=== PATIENT | male | born 1955 | race Caucasian/White ===

== ENCOUNTER 2019-09-11 17:31 | Outpatient (CLI) | payer MEDICARE, SELFPAY ==
--- NOTE | ~2019-09-11 | XR_ITS ---
EXAMINATION: XR chest 2V EXAM DATE: 09/11/2019 17:48 INDICATION: Cough since May. TECHNIQUE: Frontal and lateral projections of the chest obtained and reviewed. Comparison is made to prior examination from 06/30/2017. FINDINGS: The lungs are clear. There are no pleural effusions. The cardiomediastinal silhouette is within normal limits. There is no pneumothorax suspected. The bones and soft tissues are unremarkab le. IMPRESSION: No acute cardiopulmonary findings. Reviewed, dictated and finalized at location A.
== END 2019-09-11 17:32 | disposition home or self-care (01) ==
LOC: CHSIMG 17:36
PROVIDERS: PCP Internal Medicine; Visit Provider Internal Medicine
DX: R05 Cough (principal)
CPT/HCPCS: 71046

== ENCOUNTER 2020-09-02 16:34 | Outpatient (CLI) | payer MEDICARE, SELFPAY ==
--- NOTE | ~2020-09-02 | CT_ITS ---
EXAMINATION: CT abdomen pelvis w con DATE: 09/02/2020 17:52 INDICATION: Left lower quadrant abdominal pain. TECHNIQUE: Computed tomography (CT) of the abdomen and pelvis was performed with 100 mL Omnipaque-350 intravenous contrast. Automated exposure control and iterative reconstruction technique were employe d. The dose-length product was 985.33 mGy-cm. COMPARISON: 12/08/2007 FINDINGS: Minimal dependent atelectasis in the right lower lobe. Heart size is normal. Atherosclerotic coronary artery calcification. No pericardial or pleural effusion. Again seen are several small low-attenuati on hepatic lesions most likely representing hepatic cysts or hemangiomas, the largest measuring 12 mm in the right hepatic lobe. Gallbladder, pancreas, bilateral adrenal glands and kidneys are normal. 9 mm low-attenuation lesion at the periphery of the spleen most likely a splenic cyst or hemangioma. M ild diverticulosis with descending and sigmoid colon predominance without adjacent inflammatory aldrich e to suggest diverticulitis. Small bowel and appendix are normal. Bladder is normal. Mild prostatomeg juan. Small bilateral fat-containing inguinal hernias. No free intraperitoneal gas or fluid. No pathol ogically enlarged abdominal or pelvic lymphadenopathy. Mild lumbar levocurvature with moderate spondy losis. L4-S1 posterior spinal fusion with fixation instrumentation. IMPRESSION: 1. No acute intra-abdominal/pelvic process. 2. Mild diverticulosis. 3. Small bilateral fat-containing inguinal hernias. Reviewed, dictated and finalized at location A.
[2020-09-02 16:56] LABS: Basophils Absolute Auto 0.04 K/mm3 (0.00-0.10); Basophils Percent Auto 0.6 % (0.0-1.0); Eosinophils Percent Auto 1.5 % (1.0-6.0); Hematocrit 44.9 % (37.0-46.0); Immature Granulocyte Absolute 0.01 K/mm3 (0.00-0.00); Immature Granulocyte Percent A 0.1 % (0.0-0.0); Lymphocytes Absolute Auto 1.38 K/mm3 (1.10-4.50); Lymphocytes Percent Auto 20.4 % (18.0-42.0); Mean Corpuscular HGB Conc 33.4 g/dL (32.0-36.0); Mean Corpuscular Hemoglobin 31.8 pg (27.0-31.0); Mean Corpuscular Volume 95.3 fL (78.0-102.0); Mean Platelet Volume 9.2 fl (8.7-11.0); Monocytes Absolute Auto 0.21 K/mm3 (0.10-0.90); Monocytes Percent Auto 3.1 % (2.0-11.0); Neutrophils Percent Auto 74.3 % (50.0-70.0); Platelet Count Result 223 K/mm3 (150-420); Red Blood Count 4.71 M/mm3 (4.70-6.10); Red Cell Distribution Width 13.5 % (11.6-14.4); White Blood Count 6.8 K/mm3 (4.8-10.8)
[2020-09-02 17:00] LABS: Add Urine Microscopic? YES; Appearance Urine Clear (Clear); Bilirubin Urine 2+ (Negative); Blood Urine Negative (Negative); Color Urine Yellow (Yellow); Glucose Urine UA Negative (Negative); Ketones Urine 2+ (Negative); Leukocyte Esterase Ur Negative (Negative); Nitrate Urine Negative (Negative); Protein Urine 1+ (Negative); Specific Grav Ur >= 1.030 (1.010-1.020)
[2020-09-02 17:05] LABS: RBC Urine 0-2 /hpf (0-2); Squamous Epithelial Cell Urine Occasional /hpf (Few); WBC Urine 0-3 /hpf (0-3)
[2020-09-02 17:06] LABS: Bacteria Urine None seen /hpf
[2020-09-02 17:14] LABS: Alanine Aminotransferase 26 U/L (16-63); Albumin Level 4.1 g/dL (3.4-5.0); Alkaline Phosphatase 83 U/L (46-116); Anion Gap 9 mmol/L (8-16); Aspartate Amino Transferase 21 U/L (15-37); Bilirubin,Total 0.6 mg/dL (0.00-1.00); Blood Urea Nitrogen 16 mg/dL (7-18); Calcium 9.8 mg/dL (8.5-10.1); Carbon Dioxide 27 mmol/L (21-32); Chloride 103 mmol/L (98-108); Estimated Glomerular Filt Rate 55; Glucose 180 mg/dL (70-99); Osmolality Calculated 294 mOsm/kg (285-295); Potassium 3.9 mmol/L (3.5-5.1); Sodium 139 mmol/L (136-145); Total Protein 7.8 g/dL (6.4-8.2)
== END 2020-09-02 16:35 | disposition home or self-care (01) ==
LOC: CHSLAB 16:39
PROVIDERS: PCP Internal Medicine; Visit Provider Internal Medicine
DX: R10.32 Left lower quadrant pain (principal)
CPT/HCPCS: 36415; 74177; 80053; 81001; 85025; Q9967

== ENCOUNTER 2020-09-13 14:21 | Emergency (ER) | payer MEDICARE, SELFPAY ==
--- NOTE | ~2020-09-13 | CT_ITS ---
EXAMINATION: CT abdomen pelvis w con EXAM DATE: 09/13/2020 16:15 INDICATION: Diverticulitis LLQ pain increasing LLQ/ left groin pain into thigh, H/O diverticulitis. TECHNIQUE: Spiral CT of the abdomen and pelvis was performed following intravenous injection of 100 m L Omnipaque 350. Axial, coronal and sagittal images of the abdomen and pelvis were reviewed. The do se-length product (DLP) for this examination was 1294.83 mGy-cm. The exposure was tailored according to patient size (auto mA exposure control), and iterative reconstruction (ASIR) was used as addition al dose reduction technique. Comparison is made to prior examination from 09/02/2020. FINDINGS: Liver and subcentimeter hypodensities consistent with cysts. The liver, spleen, adrenal gl ands and pancreas are otherwise unremarkable. Gallbladder is unremarkable. No biliary obstruction. Portal and splenic veins are patent. Kidneys enhance symmetrically. There is no hydronephrosis. The prostate is unremarkable. The bladder is unremarkable. There is no retroperitoneal or pelvic ly mphadenopathy. There is mild to moderate scattered arteriosclerotic disease. Small bilateral inguin al fat-containing hernias. There is mild scattered colonic diverticulosis. There is no adjacent inflammatory change to suggest diverticulitis. The appendix is normal. The stomach and small bowel are unremarkable. There is expe cted amount of colonic stool. No free intraperitoneal gas. The heart is normal in size. There ar e no pericardial or pleural effusions. The lung bases are unremarkable. Mild lumbar levoscoliosis. Lumbosacral transitional segment. There is no significant interval change. IMPRESSION: 1. No acute intra-abdominal findings. 2. Mild scattered colonic diverticulosis. 3. Small inguinal hernias. Reviewed, dictated and finalized at location B.
--- NOTE | ~2020-09-13 | US_ITS ---
EXAMINATION: US venous doppler [facility] DATE: 09/13/2020 15:36 INDICATION: Left lower limb pain. TECHNIQUE: Grayscale ultrasound images without and with compression and Doppler ultrasound images of the left lower extremity veins were obtained. COMPARISON: None. FINDINGS: The visualized portions of left common femoral vein, profunda (deep) femoral vein, femoral vein, popl iteal vein, peroneal veins, posterior tibial veins, and greater saphenous vein outflow are patent. IMPRESSION: 1. No deep venous thrombosis. Reviewed, dictated and finalized at location A.
[2020-09-13 14:25] VITALS: BP 139/77; PULSE 88; RESP 16; TEMP 36.8; O2SAT 94
[2020-09-13] MEDS: KETOROLAC 30 MG/ML VIAL (*BKC) IM (15:18)
[2020-09-13 15:26] LABS: Basophils Absolute Auto 0.02 K/mm3 (0.00-0.10); Basophils Percent Auto 0.2 % (0.0-1.0); Eosinophils Absolute Auto 0.11 K/mm3 (0.02-0.50); Eosinophils Percent Auto 1.3 % (1.0-6.0); Hematocrit 45.9 % (37.0-46.0); Hemoglobin 15.1 g/dL (12.4-15.3); Immature Granulocyte Absolute 0.02 K/mm3 (0.00-0.00); Immature Granulocyte Percent A 0.2 % (0.0-0.0); Lymphocytes Absolute Auto 1.58 K/mm3 (1.10-4.50); Lymphocytes Percent Auto 18.4 % (18.0-42.0); Mean Corpuscular HGB Conc 32.9 g/dL (32.0-36.0); Mean Corpuscular Hemoglobin 31.7 pg (27.0-31.0); Mean Corpuscular Volume 96.4 fL (78.0-102.0); Mean Platelet Volume 9.8 fl (8.7-11.0); Monocytes Absolute Auto 0.27 K/mm3 (0.10-0.90); Monocytes Percent Auto 3.2 % (2.0-11.0); Neutrophils Absolute Auto 6.6 K/mm3 (1.7-7.2); Neutrophils Percent Auto 76.7 % (50.0-70.0); Platelet Count Result 238 K/mm3 (150-420); Red Blood Count 4.76 M/mm3 (4.70-6.10); Red Cell Distribution Width 14.1 % (11.6-14.4); White Blood Count 8.6 K/mm3 (4.8-10.8)
--- NOTE | 2020-09-13 15:33 | ED.ABDPAIN ---
HPI - Abdominal Pain General Chief Complaint: Abdominal Pain Stated Complaint: left side pain Groin/leg/Stomach Time Seen by Provider: 09/13/20 14:35 Source: patient Mode of arrival: ambulatory Limitations: no limitations History of Present Illness HPI narrative: Patient comes in with LLQ pain which he says has been ongoing for [address] Munoz a week ago or so, and was placed on medications for what was felt to be diverticulitis. He had been feeling somewhat better, but now has been having more pain today. Pain is moderately severe, sharp, and also associated with pain in his left thigh. It has been ongoing for at least a week, and has not been decreased by ibuprofen and measures at home. No other modifying factors. He denies fever and chills. Nothing is known to have precipitated this pain. He also has complained of not feeling well. MD elicited complaint: abdominal pain Pertinent past history: diverticulitis Onset (ago): week(s) Pain Consistency: constant Location: LLQ Severity: moderate Quality: stabbing Radiation: other (down to left leg) Exacerbating factors: movement Relieving factors: rest (rest helps a little to relieve pain) Associated symptoms: denies other symptoms Treatments prior to arrival: NSAIDs Related Data Home Medications Medication Instructions Recorded Confirmed amitriptyline 50 mg PO BID 09/13/20 09/13/20 celecoxib 200 mg PO BID 09/13/20 09/13/20 folic acid 1 mg PO DAILY 09/13/20 09/13/20 gabapentin 900 mg PO TID 09/13/20 09/13/20 insulin glargine [Basaglar KwikPen 70 unit SUBCUT DAILY 09/13/20 09/13/20 U-100 Insulin] lisinopril 10 mg PO DAILY 09/13/20 09/13/20 lovastatin 10 mg PO HS 09/13/20 09/13/20 metformin 500 mg PO DAILY 09/13/20 09/13/20 metoprolol tartrate 25 mg PO BID 09/13/20 09/13/20 tamsulosin 0.4 mg PO DAILY 09/13/20 09/13/20 Allergies Allergy/AdvReac Type Severity Reaction Status Date / Time lansoprazole Allergy Intermediate JOINT PAIN Verified 03/11/17 09:53 Review of Systems Constitutional: Constitutional: Reports fatigue Eyes: Eyes: Reports no additional eye complaints ENT: Reports system reviewed and no additional complaints, except as documented Cardiovascular: Cardiovascular: Reports no additional cardiovascular complaints Respiratory: Respiratory: Reports no additional respiratory complaints Gastrointestinal: Gastrointestinal: Reports no additional gastrointestinal complaints Genitourinary: Genitourinary: Reports no additional male genitourinary complaints Musculoskeletal: Musculoskeletal: Reports no additional musculoskeletal complaints Integumentary/Breasts: Skin/Breast: Reports system reviewed and no additional complaints, except as docu Neurologic: Reports system reviewed and no additional complaints, except as documented Psychiatric: Psychiatric: Reports no additional psychiatric complaints Endocrine: Endocrine: Reports no additional endocrine complaints Hematologic/Lymphatic: Hematologic/Lymphatic: Reports no additional hematologic/lymphatic complaints Allergic/Immunologic: Allergic/Immunologic: Reports no additional allergic/immunologic complaints [facility] Past Medical History Medical History CAD (coronary artery disease) Diabetes Diverticulitis Hairy cell leukemia HTN (hypertension) Hyperlipidemia Surgical History Surgical History (Updated 09/13/20 @ 16:50 by Jeff Aldana MD) H/O rotator cuff surgery Hx of elbow surgery Previous back surgery Family History Family History (Updated 09/14/20 @ 00:32 by Jeff Aldana MD) Mother CAD (coronary artery disease) Father DVT (deep venous thrombosis) Pulmonary embolism Social History Social History (Updated 09/14/20 @ 00:33 by Jeff Aldana MD) Smoking status: Former smoker Alcohol intake: never Substance use: never Exam Const: Orientation/consciousness: patient oriented x3 Other: appears uncomfortable with L
[2020-09-13 15:41] LABS: Alanine Aminotransferase 27 U/L (16-63); Albumin Level 3.8 g/dL (3.4-5.0); Alkaline Phosphatase 80 U/L (46-116); Anion Gap 9 mmol/L (8-16); Aspartate Amino Transferase 20 U/L (15-37); Bilirubin,Total 0.5 mg/dL (0.00-1.00); Blood Urea Nitrogen 15 mg/dL (7-18); Carbon Dioxide 25 mmol/L (21-32); Chloride 103 mmol/L (98-108); Estimated CRCL calculation 80 ml/min; Estimated Glomerular Filt Rate > 60; Glucose 168 mg/dL (70-99); Osmolality Calculated 288 mOsm/kg (285-295); Potassium 4.3 mmol/L (3.5-5.1); Sodium 137 mmol/L (136-145); Total Protein 7.4 g/dL (6.4-8.2)
[2020-09-13 16:41] VITALS: BP 129/80; PULSE 81; RESP 15; O2SAT 95
== END 2020-09-13 16:51 | disposition home or self-care (01) ==
PROVIDERS: Emergency Provider Emergency Medicine; PCP Internal Medicine
DX: K57.92 Diverticulitis of intestine, part unspecified, without perforation or abscess without bleeding (principal); M79.605 Pain in left leg
CPT/HCPCS: 36415; 74177; 80053; 83605; 85025; 87040; 93971; 96372; 99283; 99284; J1885; Q9967

== ENCOUNTER 2020-09-21 07:48 | Outpatient (CLI) | payer MEDICARE, SELFPAY ==
--- NOTE | ~2020-09-21 | MR_ITS ---
EXAMINATION: MR hip LT wo con DATE: 09/21/2020 09:38 INDICATION: Left hip pain. TECHNIQUE: Magnetic resonance imaging (MRI) of the left hip was performed without intravenous contras t. Sequences included axial and coronal PD-weighted FS FSE and axial T1-weighted FSE of the pelvis. S equences of the hip included 2D FIESTA, T1-weighted fast GRE, and axial, coronal, and sagittal PD-nehemiah ghted FS FSE. COMPARISON: CT abdomen and pelvis 09/13/2020 FINDINGS: Bones/cartilage: Bone alignment is normal. No fracture. The right hip joint demonstrates areas of full-thickness carti maximiliano loss and osteophytes. Small [id number] images of left hip demonstrate full-thickness cartilag e loss of the acetabulum superolaterally, partial thickness cartilage loss of the femoral head, and m arginal osteophytes. Labrum: There is a tear of the left acetabular labrum. Fluid: There is no hip joint effusion. There is mild bilateral trochanteric bursitis. Soft tissues: The prostate is mildly enlarged. There are bilateral inguinal hernias containing fat. The gluteus min imus and gluteus medius tendons are normal. The iliopsoas tendons are normal. There is moderate tendi nopathy of the hamstring origins bilaterally. IMPRESSION: 1. Severe chondrosis of the hip joints. 2. Bilateral inguinal hernias containing fat. Reviewed, dictated and finalized at location A.
== END 2020-09-21 07:49 | disposition home or self-care (01) ==
LOC: CHSIMG 07:50
PROVIDERS: PCP Internal Medicine; Visit Provider Internal Medicine
DX: M25.552 Pain in left hip (principal)
CPT/HCPCS: 73721

== ENCOUNTER 2020-12-23 09:52 | Outpatient (CLI) | payer MEDICARE, SELFPAY ==
--- NOTE | ~2020-12-23 | XR_ITS ---
EXAMINATION: XR knee LT min 4V DATE: 12/23/2020 10:58 INDICATION: Left knee pain. TECHNIQUE: 4 views of left knee were obtained. COMPARISON: None. FINDINGS: Bone alignment is normal. No fracture. There is mild tricompartmental osteoarthritis charac terized by tiny marginal osteophytes. There is a small knee joint effusion. IMPRESSION: 1. Mild left knee osteoarthritis. 2. Small left knee joint effusion. Reviewed, dictated and finalized at location B.
== END 2020-12-23 09:53 | disposition home or self-care (01) ==
LOC: CHSLAB 09:56
PROVIDERS: PCP Internal Medicine; Visit Provider Internal Medicine
DX: M25.562 Pain in left knee (principal)
CPT/HCPCS: 73564

== ENCOUNTER 2020-12-28 09:34 | Outpatient (CLI) | payer MEDICARE, SELFPAY ==
--- NOTE | ~2020-12-28 | MR_ITS ---
EXAMINATION: MR knee LT wo con DATE: 12/28/2020 11:37 INDICATION: Left knee pain. TECHNIQUE: Magnetic resonance imaging (MRI) of the left knee was performed without intravenous contra st. Sequences included axial PD-weighted FS FSE, coronal PD-weighted FSE and PD-weighted FS FSE, sagi ttal PD-weighted FSE, and sagittal T2-weighted FS FSE. COMPARISON: Left knee radiographs 12/23/2020 FINDINGS: Medial compartment: There is a complex tear involving posterior horn of medial meniscus. There is shallow partial-thickne ss cartilage loss of tibial condyle. There is shallow partial-thickness cartilage loss of femoral con dyle, worst at the central and posterior articular surface. There are tiny osteophytes. Lateral compartment: Lateral meniscus is normal. There is shallow partial-thickness cartilage loss of tibial condyle, wors t at the central and posterior articular surface. There is cartilage surface irregularity of femoral condyle. There are tiny marginal osteophytes. Patellofemoral compartment: There is full-thickness cartilage loss of patellar median ridge and lateral facet with moderate subch ondral edema-like marrow signal intensity. There is shallow partial-thickness cartilage loss of iverson lar medial facet. There is shallow partial-thickness cartilage loss of central trochlea. Marginal ost eophytes are noted. Ligaments and tendons: The anterior and posterior cruciate ligaments are normal. Medial collateral ligament and lateral nabil ateral ligament complex are normal. There is mild patellar tendinopathy. Fluid: There is a small knee joint effusion. IMPRESSION: 1. Severe patellofemoral compartment chondrosis and mild medial and lateral compartment chondrosis. 2. Complex tear of medial meniscus. 3. Small knee joint effusion. Reviewed, dictated and finalized at location A. IMPRESSION: 1. Severe patellofemoral compartment chondrosis and mild medial and lateral com partment chondrosis. 2. Complex tear of medial meniscus. 3. Small knee joint effusion.
== END 2020-12-28 09:35 | disposition home or self-care (01) ==
LOC: CHSIMG 09:36
PROVIDERS: PCP Internal Medicine; Visit Provider Internal Medicine
DX: M25.562 Pain in left knee (principal)
CPT/HCPCS: 73721

== ENCOUNTER 2021-03-18 13:32 | Outpatient (RCR) | payer MEDICARE, SELFPAY ==
--- NOTE | 2021-03-18 13:56 | PTOPEVAL ---
Thank you for referring Lavell Santoro to [facility].? The patient is scheduled to be seen for therapy? ____x/week for ___ weeks. Please review, sign, date and return this plan of care BO. I agree with and certify that the following plan of care is medically necessary. Referring Physician Date Admitting Provider: Attending Provider: Nelson Munoz MD Referring Provider: *PT Outpatient Evaluation Start: 03/18/21 13:24 Freq: Status: Active Protocol: Document 03/18/21 13:25 [facility] (Rec: 03/18/21 13:55 [facility] [id number]) Therapy Assessment Status Assessment Status Assessment Status Evaluation Outpatient Past Medical History Cardiovascular History Hx Hypertension Yes Endocrine History Hx Diabetes Yes Evaluation Information Problem Diagnosis L knee pain Onset 10/18/20 Subjective Information patient reports he has been Query Text:As Reported By Patient/ having pain in the L knee for Family months. he reports 4-5 months he has really noticed pain. he reports he has had xray and mri of the L knee. results show patellar chondrosis, knee OA, and a complex tear of the meniscus. he reports he has been doing some stretching exercises at home. he reports he has increased pain in the L knee with going down steps ( catches and pops). he reports he had injections to the bilateral knees yesterday ( patient believes they were botox). he reports initially when pain came about his L knee gave out on hims and he banged his knee against the sink. Prior Level of Function Comments Additional Prior Level of Function patient reports prior to 4-5 Comments months ago he was getting around ok without knee pain. Pain Assessment Timing of Pain Assessment Timing of Pain Assessment Assessment Pain Scale Pain Scale Used Numeric (1 - 10) Self Report Pain Assessment Left Knee(s) Reported Pain Level 3 Pain Frequency Acute,Continuous Greatest Pain Intensity 8 Pain Score Pain Score 3: Self Report Interventions Used Interventions Used By Clinicians Medication,Rest Lower Extremity Range of Motion General Lower Extremity Range
== END 2021-04-08 23:59 | disposition home or self-care (01) ==
LOC: CHSPT 13:32
PROVIDERS: PCP Internal Medicine; Visit Provider Internal Medicine
DX: M25.562 Pain in left knee (principal)
CPT/HCPCS: 97014; 97110; 97161; G0283

== ENCOUNTER 2021-04-29 09:45 | Outpatient (CLI) | payer MEDICARE, SELFPAY ==
[2021-04-29 11:49] LABS: Influenza A QL RT-PCR Negative (Negative); Influenza B QL RT-PCR Negative (Negative); SARS-CoV-2 RNA PCR Negative (Negative)
== END 2021-04-29 09:46 | disposition home or self-care (01) ==
PROVIDERS: PCP Internal Medicine; Visit Provider Internal Medicine
DX: J06.9 Acute upper respiratory infection, unspecified (principal); Z20.822 Contact with and (suspected) exposure to COVID-19
CPT/HCPCS: 87502; C9803; U0003; U0005

== ENCOUNTER 2022-05-04 15:43 | Emergency (ER) | payer MEDICARE, SELFPAY ==
[2022-05-04] VITALS (7 sets, daily range): BP systolic 134–144; BP diastolic 72–80; PULSE 79–90; RESP 16–20; TEMP 36.2–36.5; O2SAT 93–100
--- NOTE | ~2022-05-04 | XR_ITS ---
EXAMINATION: XR chest 1V portable Exam Date/Time: 05/04/2022 16:30 JOURNALISTS AND OTHER WRITERS HISTORY: productive cough, body aches, sore throat x 7 days hx cad Comparison: 09/11/2019. RESULT: Lines, tubes, and devices: None. Lungs and pleura: Increased diffuse reticulonodular opacities and cuffing. Cardiomediastinal silhouette: Stable. Other: No acute osseous or upper abdominal finding. IMPRESSION: Pulmonary opacities may represent bronchiolitis, as can be seen with atypical infection, asthma, aspi ration, and small airways disease. Reviewed, dictated and finalized at location K. NALISTS AND OTHER WRITERS IMPRESSION: Pulmonary opacities may represent bronchiolitis, as can be seen with atypical i nfection, asthma, aspiration, and small airways disease.
--- NOTE | ~2022-05-04 | CT_ITS ---
EXAMINATION: CTA chest PE protocol DATE: 05/04/2022 17:31 INDICATION: soB, elevated ddimer, cough, hx cad,htn, former smoker TECHNIQUE: Computed tomography angiography (CTA) of the chest was performed with 100 mL Omnipaque-350 intravenous contrast timed to evaluate the pulmonary arteries. Coronal maximum intensity projection 3D-reconstructions were created by the technologist. The dose-length product (DLP) was 832.58 mGy-cm. Automated exposure control and iterative reconstruction technique were employed. COMPARISON: X-ray chest, same date. FINDINGS: Lung parenchyma and airways: Senescent change. Scattered mild peripheral reticular and reticulonodula r opacities, most evident in the dependent right lower lobe. Pleura: Unremarkable. Thoracic inlet, axillae and chest wall: Unremarkable. Thoracic aorta: Normal. Mediastinum: Mediastinal and bilateral hilar lymphadenopathy. Small hiatal hernia. Distal esophageal wall thickening. Heart and pericardium: Normal. Coronary artery calcifications: Absent. Upper abdomen: No significant finding. Bones: No acute osseous finding. Pulmonary arteries: Study quality: Adequate. No pulmonary emboli detected. IMPRESSION: No CT evidence of acute pulmonary embolus. Mild respiratory bronchiolitis. Mediastinal and bilateral hilar lymphadenopathy. Distal esophageal wall thickening as can be seen with esophagitis. Reviewed, dictated and finalized at location K. LLMENT MANAGEMENT MANAGER IMPRESSION: No CT evidence of acute pulmonary embolus. Mild respiratory bronchiolitis. Medi astinal and bilateral hilar lymphadenopathy. Distal esophageal wall thickening as can be seen with esophagitis.
--- NOTE | 2022-05-04 16:08 | ED.GENADULT ---
HPI - General Adult General Chief complaint: Upper Respiratory Infection Stated complaint: cold symptoms getting worse Time Seen by Provider: 05/04/22 15:57 Source: patient Mode of arrival: ambulatory Limitations: no limitations History of Present Illness HPI narrative: 67-year-old white male with history of diabetes hypertension rheumatoid arthritis hyperlipidemia neuropathy complains sore throat, productive cough, sinus congestion and shortness of breath for the last week without any nausea vomiting or diarrhea or fever. Says he had chest pain for 2 days last Wednesday and Wednesday today being Wednesday. Last few days he has had difficulty breathing while laying flat and waking up at nighttime short of breath and has to sit up and catch his breath. Denies any dyspnea on exertion or other chest pain since. Has any swelling or extremity pain Or abdominal pain or back pain. Denies any bleeding or bruising. Related Data Home Medications Medication Instructions Recorded Confirmed amitriptyline 50 mg tablet 50 mg PO BID 09/13/20 05/04/22 celecoxib 200 mg capsule 200 mg PO BID 09/13/20 05/04/22 folic acid 1 mg tablet 1 mg PO DAILY 09/13/20 05/04/22 gabapentin 300 mg capsule 1,200 mg PO TID 09/13/20 05/04/22 insulin glargine 100 unit/mL (3 70 unit subcut DAILY 09/13/20 05/04/22 mL) subcutaneous pen (Basaglar KwikPen U-100 Insulin) lisinopril 10 mg tablet 10 mg PO DAILY 09/13/20 05/04/22 lovastatin 10 mg tablet 10 mg PO HS 09/13/20 05/04/22 metformin 500 mg tablet,extended 500 mg PO DAILY 09/13/20 05/04/22 release 24 hr metoprolol tartrate 25 mg tablet 25 mg PO BID 09/13/20 05/04/22 methotrexate sodium 2.5 mg tablet 12.5 mg PO WEEKLY 05/04/22 05/04/22 mirabegron 25 mg tablet,extended 25 mg PO DAILY 05/04/22 05/04/22 release 24 hr (Myrbetriq) Allergies Allergy/AdvReac Type Severity Reaction Status Date / Time lansoprazole Allergy Intermediate JOINT PAIN Verified 05/04/22 15:57 Review of Systems Review of Systems: All systems reviewed & are unremarkable except as noted in HPI and below Constitutional: Constitutional: Reports as per HPI, Reports no additional constitutional complaints, Denies chills, Denies fatigue, Denies fever(s) and Denies weakness Eyes: Eyes: Reports no additional eye complaints ENT: Reports system reviewed and no additional complaints, except as documented, Reports nasal congestion and Reports sore throat Cardiovascular: Cardiovascular: Reports as per HPI, Reports no additional cardiovascular complaints and Reports chest pain Respiratory: Respiratory: Reports as per HPI, Reports cough ( productive of yellow sputum), Reports dyspnea and Reports wheezing Gastrointestinal: Gastrointestinal: Reports no additional gastrointestinal complaints Genitourinary: Genitourinary: Reports no additional male genitourinary complaints, Denies dysuria and Denies urinary frequency Musculoskeletal: Musculoskeletal: Reports no additional musculoskeletal complaints and Reports as per HPI Integumentary/Breasts: Skin/Breast: Denies rash Neurologic: Reports system reviewed and no additional complaints, except as documented Endocrine: Endocrine: Reports no additional endocrine complaints Hematologic/Lymphatic: Comments: no bleeding or bruising PMFSH Past Medical History Medical History CAD (coronary artery disease) Diabetes Diverticulitis Hairy cell leukemia HTN (hypertension) Hyperlipidemia Surgical History Surgical History H/O rotator cuff surgery Hx of elbow surgery Previous back surgery Family History Family History Mother CAD (coronary artery disease) Father DVT (deep venous thrombosis) Pulmonary embolism Social History Social History Smoking status: Former smoker
[2022-05-04] MEDS: IPRATROPIUM 0.5 MG/ALBUTEROL SULFATE 2.5 MG AMPUL.NEB 3 ML INHALATION ×2 (16:19→17:38)
--- NOTE | 2022-05-04 16:21 | ECG_ITS ---
Measurements Intervals [place] Rate: 78 P: 93 NV: 273 QRS: 41 QRSD: 82 T: 63 QT: 361 QTc: 412 Interpretive Statements SINUS RHYTHM WITH FIRST DEGREE AV BLOCK BASELINE ARTIFACT BORDERLINE ECG NO PREVIOUS ECG AVAILABLE FOR COMPARISON Electronically Signed On 05-04-2022 16:39:46 FIELD SCOUT by Rk Segovia M.D.
[2022-05-04 16:38] LABS: Hematocrit 39.7 % (37.0-46.0); Hemoglobin 13.1 g/dL (12.4-15.3); Mean Corpuscular Hemoglobin 32.8 pg (27.0-31.0); Mean Corpuscular Volume 99.3 fL (78.0-102.0); Mean Platelet Volume 8.9 fl (8.7-11.0); Platelet Count Result 258 K/mm3 (150-420); Red Cell Distribution Width 13.6 % (11.6-14.4); White Blood Count 7.3 K/mm3 (4.8-10.8)
[2022-05-04 16:39] LABS: Influenza A QL RT-PCR Negative (Negative); Influenza B QL RT-PCR Negative (Negative); SARS-CoV-2 RNA PCR Negative (Negative)
[2022-05-04 16:54] LABS: D Dimer 1.24 mg/L (0.19-0.50)
[2022-05-04 16:56] LABS: RSV RNA, RT-PCR Negative (Negative)
[2022-05-04 16:56] LABS: Partial Thromboplastin Time 28.5 SEC (23.90-30.70); Prothrombin Time 11.3 Seconds (9.64-11.0)
[2022-05-04 17:02] LABS: Alanine Aminotransferase 21 U/L (16-63); Albumin Level 3.5 g/dL (3.4-5.0); Alkaline Phosphatase 76 U/L (46-116); Anion Gap 7 mmol/L (8-16); Aspartate Amino Transferase 15 U/L (15-37); Bilirubin,Total 0.3 mg/dL (0.00-1.00); Blood Urea Nitrogen 11 mg/dL (7-18); Calcium 8.7 mg/dL (8.5-10.1); Carbon Dioxide 30 mmol/L (21-32); Chloride 101 mmol/L (98-108); Estimated CRCL calculation 80 ml/min; Estimated Glomerular Filt Rate > 60; Glucose 155 mg/dL (70-99); Osmolality Calculated 288 mOsm/kg (285-295); Potassium 4.3 mmol/L (3.5-5.1); Sodium 138 mmol/L (136-145)
[2022-05-04 17:03] LABS: NT Pro B Type Natriuretic Pept 238 pg/mL (0-125)
== END 2022-05-04 18:50 | disposition home or self-care (01) ==
PROVIDERS: Emergency Provider Emergency Medicine; PCP Internal Medicine
DX: J20.9 Acute bronchitis, unspecified (principal); R06.02 Shortness of breath; I25.10 Atherosclerotic heart disease of native coronary artery without angina pectoris; E11.9 Type 2 diabetes mellitus without complications; I10 Essential (primary) hypertension; E78.5 Hyperlipidemia, unspecified; Z79.84 Long term (current) use of oral hypoglycemic drugs; Z87.891 Personal history of nicotine dependence; Z20.822 Contact with and (suspected) exposure to COVID-19
CPT/HCPCS: 36415; 71045; 71275; 80053; 83880; 85027; 85380; 85610; 85730; 87637; 93005; 94640; 99284; Q9967

== ENCOUNTER 2022-05-18 16:07 | Outpatient (CLI) | payer MEDICARE, SELFPAY ==
[2022-05-18 16:29] LABS: Basophils Absolute Auto 0.04 K/mm3 (0.00-0.10); Basophils Percent Auto 0.3 % (0.0-1.0); Eosinophils Absolute Auto 0.16 K/mm3 (0.02-0.50); Eosinophils Percent Auto 1.3 % (1.0-6.0); Hemoglobin 14.3 g/dL (12.4-15.3); Immature Granulocyte Absolute 0.05 K/mm3 (0.00-0.00); Immature Granulocyte Percent A 0.4 % (0.0-0.0); Lymphocytes Absolute Auto 2.45 K/mm3 (1.10-4.50); Lymphocytes Percent Auto 19.2 % (18.0-42.0); Mean Corpuscular HGB Conc 33.3 g/dL (32.0-36.0); Mean Corpuscular Hemoglobin 32.1 pg (27.0-31.0); Mean Corpuscular Volume 96.6 fL (78.0-102.0); Mean Platelet Volume 9.3 fl (8.7-11.0); Monocytes Absolute Auto 0.68 K/mm3 (0.10-0.90); Monocytes Percent Auto 5.3 % (2.0-11.0); Neutrophils Absolute Auto 9.4 K/mm3 (1.7-7.2); Neutrophils Percent Auto 73.5 % (50.0-70.0); Platelet Count Result 260 K/mm3 (150-420); Red Blood Count 4.45 M/mm3 (4.70-6.10); Red Cell Distribution Width 14.2 % (11.6-14.4); White Blood Count 12.8 K/mm3 (4.8-10.8)
[2022-05-18 16:52] LABS: Alanine Aminotransferase 27 U/L (16-63); Albumin Level 3.6 g/dL (3.4-5.0); Alkaline Phosphatase 75 U/L (46-116); Anion Gap 6 mmol/L (8-16); Aspartate Amino Transferase 14 U/L (15-37); Bilirubin,Total 0.4 mg/dL (0.00-1.00); Blood Urea Nitrogen 19 mg/dL (7-18); Calcium 8.9 mg/dL (8.5-10.1); Carbon Dioxide 28 mmol/L (21-32); Chloride 100 mmol/L (98-108); Estimated Glomerular Filt Rate > 60; Glucose 245 mg/dL (70-99); Osmolality Calculated 288 mOsm/kg (285-295); Potassium 4.5 mmol/L (3.5-5.1); Sodium 134 mmol/L (136-145); Total Protein 6.6 g/dL (6.4-8.2)
== END 2022-05-18 16:08 | disposition home or self-care (01) ==
LOC: CHSLAB 16:11
PROVIDERS: PCP Internal Medicine; Visit Provider Internal Medicine
DX: R42 Dizziness and giddiness (principal)
CPT/HCPCS: 36415; 80053; 85025

== ENCOUNTER 2022-11-11 06:53 | Outpatient (CLI) | payer MEDICARE, SELFPAY ==
--- NOTE | ~2022-11-11 | CT_ITS ---
Clinical Indication: Cough, mediastinal adenopathy CT Scan of the Chest with Contrast: Technique: Contiguous sections were acquired throughout the chest after intravenous administration of 75 cc of Omnipaque 350. Dose reduction technique was used on this scan by utilizing automated exposu re control and iterative reconstruction technique. The dose-length product (DLP) was 602.03 mGy-cm. Comparison: 05/04/2022 Findings: There is no evidence of any significant mediastinal, hilar or axillary lymphadenopathy. There is no f illing defect in the pulmonary arterial tree to suggest pulmonary embolus. There is no evidence of ao rtic dissection or aneurysm. There is no evidence of pleural or pericardial effusion. There is a 4 mm nodular opacity at the extreme right lung base (axial image 123). There is mild diffu se subpleural reticulation and minimal interstitial thickening in the upper lobes. There is mild grou ndglass opacity in the right upper lobe.. Images through the upper abdomen reveal small, suspected hepatic cysts. Impression: 12 mm nodule at the extreme right lung base. Consider PET/CT, tissue sampling, or short-term follow-u p CT in 1-3 months. Mild interstitial thickening and subpleural reticulation, with mild groundglass opacity in the right upper lobe. Findings probably represent chronic interstitial disease, and are similar in appearance t o prior exam. Reviewed, dictated and finalized at [facility]. Impression: 12 mm nodule at the extreme right lung base. Consider PET/CT, tissue sampling, or short-term follow-up CT in 1-3 months. Mild interstitial thickening and subpleural reticulation, with mild groundglass opacity in the right upper lobe. Findings probably represent chronic interstit ial disease, and are similar in appearance to prior exam.
[2022-11-11 07:25] LABS: Estimated Glomerular Filt Rate > 60
== END 2022-11-11 06:54 | disposition home or self-care (01) ==
PROVIDERS: PCP Internal Medicine; Visit Provider Internal Medicine
DX: R59.0 Localized enlarged lymph nodes (principal); R05.9 Cough, unspecified; R91.1 Solitary pulmonary nodule
CPT/HCPCS: 71260; Q9967

== ENCOUNTER 2022-12-30 13:06 | Outpatient (CLI) | payer MEDICARE, SELFPAY ==
--- NOTE | ~2022-12-30 | XR_ITS ---
EXAMINATION: XR chest 2V 12/30/2022 13:31 INDICATION: COPD exacerbation. PROCEDURE: 2 view chest COMPARISON: Comparison to multiple prior studies sequentially, with oldest reviewed study dated 07/2016. FINDINGS: The lungs are clear. The cardiomediastinal silhouette is within normal limits. There are no pleural effusions. There is no pneumothorax suspected. IMPRESSION: 1: NO ACUTE CARDIOPULMONARY DISEASE. Reviewed, dictated and finalized at location B.
[2022-12-30 13:23] LABS: Basophils Absolute Auto 0.07 K/mm3 (0.00-0.10); Basophils Percent Auto 0.7 % (0.0-1.0); Eosinophils Absolute Auto 0.19 K/mm3 (0.02-0.50); Hematocrit 36.9 % (37.0-46.0); Hemoglobin 13.7 g/dL (12.4-15.3); Immature Granulocyte Absolute 0.02 K/mm3 (0.00-0.00); Immature Granulocyte Percent A 0.2 % (0.0-0.0); Lymphocytes Absolute Auto 3.03 K/mm3 (1.10-4.50); Lymphocytes Percent Auto 31.7 % (18.0-42.0); Mean Corpuscular HGB Conc 37.1 g/dL (32.0-36.0); Mean Corpuscular Hemoglobin 35.8 pg (27.0-31.0); Mean Corpuscular Volume 96.3 fL (78.0-102.0); Mean Platelet Volume 10.2 fl (8.7-11.0); Monocytes Absolute Auto 0.94 K/mm3 (0.10-0.90); Monocytes Percent Auto 9.8 % (2.0-11.0); Neutrophils Absolute Auto 5.3 K/mm3 (1.7-7.2); Neutrophils Percent Auto 55.6 % (50.0-70.0); Platelet Count Result 297 K/mm3 (150-420); Red Blood Count 3.83 M/mm3 (4.70-6.10); Red Cell Distribution Width 13.9 % (11.6-14.4); White Blood Count 9.6 K/mm3 (4.8-10.8)
[2022-12-30 13:40] LABS: Alanine Aminotransferase 25 U/L (16-63); Albumin Level 3.5 g/dL (3.4-5.0); Alkaline Phosphatase 72 U/L (46-116); Anion Gap 9 mmol/L (8-16); Aspartate Amino Transferase 14 U/L (15-37); Bilirubin,Total 0.7 mg/dL (0.00-1.00); Blood Urea Nitrogen 13 mg/dL (7-18); Calcium 9.4 mg/dL (8.5-10.1); Carbon Dioxide 28 mmol/L (21-32); Chloride 100 mmol/L (98-108); Estimated Glomerular Filt Rate > 60; Glucose 263 mg/dL (70-99); Osmolality Calculated 293 mOsm/kg (285-295); Potassium 3.4 mmol/L (3.5-5.1); Sodium 137 mmol/L (136-145); Total Protein 7.5 g/dL (6.4-8.2)
[2022-12-30 13:55] LABS: Strep Group A RT-PCR NOT DETECTED (Negative)
[2022-12-30 14:02] LABS: Influenza A QL RT-PCR Negative (Negative); Influenza B QL RT-PCR Negative (Negative); SARS-CoV-2 RNA PCR Negative (Negative)
== END 2022-12-30 13:07 | disposition home or self-care (01) ==
LOC: CHSLAB 13:09
PROVIDERS: PCP Internal Medicine; Visit Provider Internal Medicine
DX: J44.1 Chronic obstructive pulmonary disease with (acute) exacerbation (principal); Z20.822 Contact with and (suspected) exposure to COVID-19
CPT/HCPCS: 36415; 71046; 80053; 85025; 87636; 87651

== ENCOUNTER 2023-01-04 16:02 | Outpatient (CLI) | payer MEDICARE, SELFPAY ==
--- NOTE | ~2023-01-04 | XR_ITS ---
EXAMINATION: XR chest 2V DATE: 01/04/2023 17:10 INDICATION: Shortness of breath and cough. TECHNIQUE: Frontal and lateral views of the chest were obtained on 3 radiographs. COMPARISON: Chest 2 views 12/30/2022 FINDINGS: There is mild scarring at the lung apices. No pleural effusion or pneumothorax. The heart s ize is normal. IMPRESSION: 1. No acute cardiopulmonary disease. Reviewed, dictated and finalized at location E.
[2023-01-04 16:41] LABS: Basophils Absolute Auto 0.02 K/mm3 (0.00-0.10); Basophils Percent Auto 0.1 % (0.0-1.0); Eosinophils Absolute Auto 0.12 K/mm3 (0.02-0.50); Eosinophils Percent Auto 0.8 % (1.0-6.0); Hematocrit 40.5 % (37.0-46.0); Hemoglobin 14.2 g/dL (12.4-15.3); Immature Granulocyte Absolute 0.11 K/mm3 (0.00-0.00); Immature Granulocyte Percent A 0.8 % (0.0-0.0); Lymphocytes Absolute Auto 3.18 K/mm3 (1.10-4.50); Lymphocytes Percent Auto 21.8 % (18.0-42.0); Mean Corpuscular HGB Conc 35.1 g/dL (32.0-36.0); Mean Corpuscular Hemoglobin 34.1 pg (27.0-31.0); Mean Corpuscular Volume 97.4 fL (78.0-102.0); Mean Platelet Volume 9.5 fl (8.7-11.0); Monocytes Absolute Auto 0.99 K/mm3 (0.10-0.90); Monocytes Percent Auto 6.8 % (2.0-11.0); Neutrophils Absolute Auto 10.2 K/mm3 (1.7-7.2); Neutrophils Percent Auto 69.7 % (50.0-70.0); Platelet Count Result 346 K/mm3 (150-420); Red Blood Count 4.16 M/mm3 (4.70-6.10); Red Cell Distribution Width 13.2 % (11.6-14.4); White Blood Count 14.6 K/mm3 (4.8-10.8)
[2023-01-04 17:00] LABS: Partial Thromboplastin Time 24.4 SEC (23.90-30.70); Prothrombin Time 11.1 Seconds (9.50-12.10)
[2023-01-04 17:09] LABS: Anion Gap 10 mmol/L (8-16); Blood Urea Nitrogen 13 mg/dL (7-18); Carbon Dioxide 28 mmol/L (21-32); Chloride 104 mmol/L (98-108); Estimated Glomerular Filt Rate > 60; Glucose 85 mg/dL (70-99); Potassium 3.8 mmol/L (3.5-5.1); Sodium 142 mmol/L (136-145)
[2023-01-04 17:10] LABS: Alanine Aminotransferase 37 U/L (16-63); Albumin Level 3.5 g/dL (3.4-5.0); Alkaline Phosphatase 69 U/L (46-116); Aspartate Amino Transferase 21 U/L (15-37); Bilirubin,Total 0.5 mg/dL (0.00-1.00); Calcium 9.3 mg/dL (8.5-10.1); Free T4 Free Thyroxine 0.93 ng/dL (0.76-1.46); Magnesium 1.9 mg/dL (1.8-2.4); NT Pro B Type Natriuretic Pept 830 pg/mL (0-125); Osmolality Calculated 293 mOsm/kg (285-295); Thyroid Stimulating Hormone 1.14 uIU/mL (0.36-3.74); Total Protein 6.7 g/dL (6.4-8.2)
== END 2023-01-04 16:03 | disposition home or self-care (01) ==
LOC: CHSLAB 16:07
PROVIDERS: PCP Internal Medicine; Visit Provider Internal Medicine
DX: J44.1 Chronic obstructive pulmonary disease with (acute) exacerbation (principal); R06.02 Shortness of breath; R05.9 Cough, unspecified; I48.91 Unspecified atrial fibrillation
CPT/HCPCS: 36415; 71046; 80053; 83735; 83880; 84439; 84443; 84481; 85025; 85610; 85730

== ENCOUNTER 2023-01-13 13:08 | Outpatient (CLI) | payer MEDICARE, SELFPAY ==
--- NOTE | 2023-02-16 12:46 | P.PCNHOL_ITS ---
Holter/Event Monitor Holter/Event Monitor Date of procedure: 01/13/23 Holter/Event Procedure: Event Monitor Indications: PAF Conclusion: 1. 30 day event monitor between 01/13/23-02/11/23. This is an event-triggered alejandra tor only. 2. Predominant rhythm is atrial fibrillation or atrial flutter. HR range 68-118 bpm. 3. In available transmissions, there are 2 premature supraventricular complexes. Two episodes of accelerated junctional rhythm. 4. In available transmissions, there are 32 episodes of premature ventricular complexes. No ventricular tachycardia. 5. No significant pauses greater than 2 seconds. 6. Patient reports 16 episodes of symptoms of lightheadedness, dizziness, shortness of breath, chest pain and symptoms other than listed which demonstrate atrial fibrillation or atrial flutter with HR range 69-94 bpm with 5 episodes with PVC's.
== END 2023-01-13 13:09 | disposition home or self-care (01) ==
LOC: CHSCARD 13:13
PROVIDERS: PCP Internal Medicine; Visit Provider Internal Medicine
DX: I48.91 Unspecified atrial fibrillation (principal); J44.1 Chronic obstructive pulmonary disease with (acute) exacerbation
CPT/HCPCS: 93270

== ENCOUNTER 2023-01-29 10:10 | Outpatient (CLI) | payer MEDICARE, SELFPAY ==
--- NOTE | ~2023-01-29 | CT_ITS ---
EXAMINATION: CT diagnostic chest wo con DATE: 01/29/2023 11:00 INDICATION: Cough and shortness of breath TECHNIQUE: Computed tomography (CT) of the chest was performed without intravenous contrast. The dose -length product (DLP) was 354.15 mGy-cm. Automated exposure control and iterative reconstruction tech HouseCall were employed. COMPARISON: 11/11/2022 FINDINGS: There are patchy airspace opacities in the lower lobes. There is mild bronchiectasis of the lung bases. The previously described right lower lobe nodule is less evident than on the comparison examination, most likely reflecting an area of resolving infection/inflammation. No pleural effusion or pneumothorax. No pathologically enlarged thoracic lymph nodes are identified. The heart size is no rmal. Calcified coronary artery atherosclerosis is noted. There is moderate thoracic spondylosis. IMPRESSION: 1. Patchy airspace opacities in the lower lobes with areas of bronchiectasis in the lung bases, likel y reflecting acute on chronic infection. Reviewed, dictated and finalized at location B. IMPRESSION: 1. Patchy airspace opacities in the lower lobes with areas of bronchiectasis in the lung bases, likely reflecting acute on chronic infection.
== END 2023-01-29 10:11 | disposition home or self-care (01) ==
LOC: CHSIMG 10:12
PROVIDERS: PCP Internal Medicine; Visit Provider Internal Medicine
DX: R06.00 Dyspnea, unspecified (principal); R06.2 Wheezing; R05.9 Cough, unspecified; J47.9 Bronchiectasis, uncomplicated
CPT/HCPCS: 71250

== ENCOUNTER 2023-03-01 08:30 | Outpatient (CLI) | payer MEDICARE, SELFPAY ==
--- NOTE | 2023-03-01 08:33 | EST_ITS ---
Patient Info Name: Lavell Santoro Age: 68 years : 1955 Gender: Male Ht: 73 in Wt: 226 lbs BSA: 2.32 m2 HR: 96 bpm BP: 138 / 77 mmHg Heart Rhythm: Atrial Fibrillation Technical Quality: Good Exam Date: 03/01/2023 10:10 AM Exam Location: [facility] Patient Status: Outpatient Admit Date: 03/01/2023 Staff Ordering Physician: Bruno Loomis DO Attending Provider: Bruno Loomis DO Exam Type: CA stress juancarlos w NM Study Info A regadenoson stress test was performed. History/Risk Factors Hypertension: Yes Dyslipidemia: Yes Coronary Artery Disease (CAD) Yes Diabetes Mellitus: Yes History/Risk Factors Malignancy. Atrial fibrillation. Summary 1. 1. Negative lexiscan stress test for ischemic ST changes by ECG criteria. 2. 2. Stable hemodynamics throughout the test. 3. 3. Nuclear scan to follow and will be reported separately. Please correlate with it. Protocol: LEXISCAN Stress ECG Details Stage: REST Duration (min): 1 min : 13 sec HR (bpm): 79 SBP (mmHg): 138 DBP (mmHg): 77 Stage: REST Duration (min): 6 min : 58 sec HR (bpm): 75 SBP (mmHg): 138 DBP (mmHg): 77 Stage: STAGE 1 Duration (min): 0 min : 18 sec HR (bpm): 75 SBP (mmHg): 138 DBP (mmHg): 77 Stage: RECOVERY Duration (min): 0 min : 41 sec HR (bpm): 80 SBP (mmHg): 138 DBP (mmHg): 77 Stage: RECOVERY Duration (min): 1 min : 41 sec HR (bpm): 79 SBP (mmHg): 138 DBP (mmHg): 77 Stage: RECOVERY Duration (min): 2 min : 41 sec HR (bpm): 83 SBP (mmHg): 116 DBP (mmHg): 70 Stage: RECOVERY Duration (min): 3 min : 41 sec HR (bpm): 83 SBP (mmHg): 116 DBP (mmHg): 70 Stage: RECOVERY Duration (min): 4 min : 41 sec HR (bpm): 77 SBP (mmHg): 139 DBP (mmHg): 73 Stage: RECOVERY Duration (min): 5 min : 41 sec HR (bpm): 81 SBP (mmHg): 144 DBP (mmHg): 74 Stage: RECOVERY Duration (min): 6 min : 27 sec HR (bpm): --- SBP (mmHg): 144 DBP (mmHg): 74 Rest HR: 75 bpm Peak HR: 87 bpm Rest Sys BP: 138 mmHg Peak Sys BP: 144 mmHg Max Pred HR: 151 bpm % Max Pred HR: 58 % Target HR: 128 bpm Max RPP: 12,528 bpm*mmHg BP Response: Normal blood pressure response Termination Reason: Completed Protocol Cardiac Symptoms: None Total Time: 0 min : 18 sec Rest Rai BP: 77 mmHg Peak Rai BP: 74 mmHg Total Dose: 0.4 mg Resting ECG Atrial fibrillation. Occasional PVCs. Stress ECG No abnormal ST/T wave changes. Arrhythmias Occasional PVCs. Atrial fibrillation. Report Signatures
--- NOTE | 2023-03-02 08:11 | WPDCARIOSTRE ---
Nuclear Stress Test INDICATIONS Indications: Dyspnea PROCEDURE Procedure Performed: Myocardial Perf Spect-Multi Procedure: Patient underwent a lexiscan stress test and immediately was injected with 29 mCi of cardiolyte. Multiple tomographic images were obtained. These are of good quality. There is a large size, severe inferior perfusion defect with stress imaging. A separate resting study was performed and immediately was injected with 9.4 mCi of cardiolyte. Multiple tomographic images were obtained. These are of good quality. There is a large size, severe inferior perfusion defect with rest imaging. CONCLUSION Conclusion: 1. Myocardial perfusion imaging demonstrating a fixed large size inferior perfusion defect suggestive of diaphragmatic attenuation artifact. 2. No evidence of reversible ischemia. 3. Left ventriculogram demonstrates normal measured ejection fraction of 63% with no wall motion abnormalities. 4. TID score 1.1 is normal.
== END 2023-03-01 08:31 | disposition home or self-care (01) ==
LOC: CHSCARD 08:33
PROVIDERS: PCP Internal Medicine; Visit Provider Internal Medicine Cardiovascular Disease
DX: R06.09 Other forms of dyspnea (principal); R00.2 Palpitations
CPT/HCPCS: 78452; 93017; A9502; J2785

== ENCOUNTER 2023-05-25 14:08 | Outpatient (CLI) | payer MEDICARE, SELFPAY ==
--- NOTE | ~2023-05-25 | CT_ITS ---
EXAMINATION:CT diagnostic chest wo con DATE: 05/25/2023 14:31 INDICATION: Chronic cough. TECHNIQUE: Computed tomography (CT) of the chest was performed without intravenous contrast. Automate d exposure control and iterative reconstruction technique were employed. The dose-length product (DLP ) was 401.86 mGy-cm. COMPARISON: Chest CT 01/29/2023, 05/04/22 FINDINGS: There is mild emphysema. There is peripheral septal thickening in the lungs associated with relatively mild groundglass opacities with a lower lung predominance. There is mild bronchiectasis i n the inferior lungs. There are nodules in the lungs measuring up to 4 mm with a lower lung predomina nce with interval improvement, likely benign. No pleural effusion. The heart size is normal. There ar e coronary artery calcifications. No pericardial effusion. There are cysts in the liver measuring up to 10 mm. There is chronic mild mediastinal lymphadenopathy, likely reactive. For example, a right pa ratracheal node measures 23 x 10 mm. There is moderate thoracic spondylosis and severe cervical spond ylosis. IMPRESSION: 1. Diffuse lung disease with interval improvement, likely a combination of mild emphysema, mild chron ic interstitial lung disease, and chronic infection. 2. Chronic mild mediastinal lymphadenopathy, likely reactive. Reviewed, dictated and finalized at location E. DELIVERER IMPRESSION: 1. Diffuse lung disease with interval improvement, likely a combination of mild emphysema, mild chronic interstitial lung disease, and chronic infection. 2. Chronic mild mediastinal lymphadenopathy, likely reactive.
== END 2023-05-25 14:09 | disposition home or self-care (01) ==
LOC: CHSIMG 14:11
PROVIDERS: PCP Internal Medicine; Visit Provider Internal Medicine
DX: R05.9 Cough, unspecified (principal); J98.4 Other disorders of lung; R59.0 Localized enlarged lymph nodes
CPT/HCPCS: 71250

== ENCOUNTER 2024-04-04 01:22 | Day surgery (SDC) | payer MEDICARE, SELFPAY ==
[2024-03-29 11:08] VITALS: BMI 27.1
--- NOTE | 2024-03-29 12:43 | PC.NURSE ---
Spoke with _PATIENT_ regarding medication _ELIQUIS_. Pt. verbalizes understanding that the last dose of _ELIQUIS_ is to be taken on _03/31/2024_ and the Endoscopist will instruct them when to restart after the procedure.
[2024-04-04 09:05] VITALS: BP 120/84; PULSE 84; RESP 18; TEMP 36.2; O2SAT 100
[2024-04-04] MEDS: LACTATED RINGERS 1,000 ML 150 ML IV CONT (09:16)
[2024-04-04 09:20] LABS: Glucose Point of Care 114 mg/dl (65-105)
--- NOTE | 2024-04-04 09:59 | PM.IMHP ---
H&P: HPI History of Present Illness Date/Time: 04/04/24 09:59 Chief Complaint: Family history of colon cancer Narrative: this is a 69-year-old man who presents for colonoscopy. His last colonoscopy was 5 years ago. He has a family history of colon cancer in his father. He denies any hematochezia or melena. He denies any recent history of polyps at his last colonoscopy. Review of Systems Review of Systems: All systems reviewed & are unremarkable except as noted in HPI and below Constitutional: Constitutional: Denies chills, Denies fever(s), Denies headache(s) and Denies weight loss Eyes: Eyes: Denies change in vision ENT: Denies dizziness, Denies headache(s), Denies neck mass and Denies throat swelling Cardiovascular: Cardiovascular: Denies chest pain, Denies lightheadedness and Denies dyspnea Respiratory: Respiratory: Denies cough, Denies dyspnea and Denies wheezing Gastrointestinal: Gastrointestinal: Denies abdominal pain, Denies change in bowel habits, Denies nausea and Denies vomiting Genitourinary: Genitourinary: Denies hematuria and Denies dysuria Musculoskeletal: Musculoskeletal: Reports as per HPI Integumentary/Breasts: Skin/Breast: Reports as per HPI Neurologic: Denies dizziness and Denies headache(s) Allergic/Immunologic: Allergic/Immunologic: Denies throat swelling and Denies wheezing PMF Past Medical History Medical History CAD (coronary artery disease) Diabetes Diverticulitis Hairy cell leukemia HTN (hypertension) Hyperlipidemia Surgical History Surgical History H/O rotator cuff surgery Hx of elbow surgery Previous back surgery Family History Family History Mother CAD (coronary artery disease) Father DVT (deep venous thrombosis) Pulmonary embolism Social History Social History Smoking status: Current every day smoker Tobacco type: cigarettes and cigars Additional smoking assessment comments: QUIT SMOKING CIGARETTES YEARS AGO AND NOW 2 CIGARS DAILY Alcohol intake: current Substance use: never Substance use type: does not use Living arrangements: with family Spiritual care concerns: No Meds Home Medications and Allergies Home Medications Medication Instructions Recorded Confirmed Type amitriptyline 50 mg tablet 50 mg PO BID 09/13/20 04/04/24 History celecoxib 200 mg capsule 200 mg PO BID PRN Pain 09/13/20 04/04/24 History folic acid 1 mg tablet 1 mg PO DAILY 09/13/20 04/04/24 History gabapentin 300 mg capsule 1,200 mg PO TID 09/13/20 04/04/24 History insulin glargine 100 unit/mL (3 25 unit subcut QPM 09/13/20 04/04/24 History mL) subcutaneous pen (Basaglar KwikPen U-100 Insulin) metformin 500 mg tablet,extended 500 mg PO DAILY 09/13/20 04/04/24 History release 24 hr metoprolol tartrate 25 mg tablet 25 mg PO BID 09/13/20 04/04/24 History methotrexate sodium 2.5 mg tablet 22.5 mg PO WEEKLY 05/04/22 04/04/24 History mirabegron 25 mg tablet,extended 25 mg PO DAILY 05/04/22 04/04/24 History release 24 hr (Myrbetriq) apixaban 5 mg tablet (Eliquis) 5 mg PO BID 02/08/23 04/04/24 History lovastatin 10 mg tablet 5 mg PO HS 02/08/23 04/04/24 History albuterol sulfate 90 mcg/actuation 2 puff inhalation QID PRN 03/29/24 04/04/24 History aerosol inhaler Shortness Of Breath Or Wheezing budesonide-formoterol HFA 160 2 puff inhalation BID 03/29/24 04/04/24 History mcg-4.5 mcg/actuation aerosol inhaler (Symbicort) cholecalciferol (vitamin D3) 25 25 mcg PO DAILY 03/29/24 04/04/24 History mcg (1,000 unit) tablet (Vitamin D3) coQ10 (ubiquinol) 200 mg capsule 200 mg PO DAILY 03/29/24 04/04/24 History gabapentin 300 mg capsule 600 mg PO BID 03/29/24 04/04/24 History insulin aspart U-100 100 unit/mL See Rx Instructions .Route .COMPLEX 03/29/24 04/04/24 History subcutaneous solution (Novolog U-100 Insulin aspart) lisinopril 2.5 mg tablet 2.5 mg PO DAILY 03/29/24 04/04/24 History xupnlcff-vt-wueqv 300 mcg-K 60 1 tablet PO DAILY 03/29/24 04/04/24 History mcg-lycop 600 mcg-lutein 300 mcg tablet (Centrum Silver Men) prednisone 5 mg tablet 10 mg PO DAILY 03/29/24 04/04/24 History saw palmetto 450 mg capsule 900 mg PO DAILY 03/29/24 04/04/24 History semaglutide 2 mg/dose (8 mg/3 mL) 2 mg subcut WEEKLY 03/29/24 04/04/24 History subcutaneous pen injector (Ozempic) Allergies Allergy/AdvReac Type Severity Reaction Status Date / Time lansoprazole Allergy Intermediate JOINT PAIN Verified 04/04/24 08:59 latex Allergy Intermediate Rash Verified 04/04/24 08:59 Vital Signs Vital Signs - 24 hr 04/04/24 09:05 Temperature 97.1 F L Pulse Rate 84 Respiratory Rate 18 Blood Pressure 120/84 Pulse Oximetry 100 Oxygen Delivery Room Air Exam Const: General: no acute distress and alert Orientation/consciousness: patient oriented x3 HENMT: Head: normocephalic and atraumatic Ears: hearing grossly normal bilaterally Face/Nose/Sinus: Normal nares present Mouth: Yes Normal oral and palatal mucosa present Eyes: Periorbital: periorbital findings normal Sclera: sclerae normal EOM: EOMs intact bilaterally Neck: Neck: normal visual inspection, no lymphadenopathy and trachea midline Chest: Chest palpation & inspection: normal inspection of the chest Resp: Effort & Inspection: normal respiratory effort Auscultation: clear to auscultation bilaterally Cardio: Jugular venous distension: no JVD Rate: regular rate Rhythm: regular rhythm Heart sounds: S1 normal heart sound present and S2 normal heart sound present Peripheral pulses: Peripheral pulses 2+ throughout GI: Inspection: normal to inspection GI Palp: Yes Soft to palpation, No Tenderness to palpation present (GI), No Guarding due to palpation present (GI) and No Rebound tenderness present Percussion: Yes normal to percussion Auscultation: normal bowel sounds : General: Yes no CVA tenderness Back/Spine/Pelvis: Back: no CVA tenderness Neuro: General: patient oriented x3, no focal motor deficits and CN's II-XI intact bilaterally Cognition (Neuro): normal cognition Speech: normal speech Motor exam (neuro): 5/5 motor strength present throughout Extrem: General: capillary refill normal and no clubbing, cyanosis or edema Assessment and Plan Assessment and plan (1) Family hx of colon cancer: Code(s): Z80.0 - Family history of malignant neoplasm of digestive organs Status: Acute Assessment and Plan: I have recommended colonoscopy. I have discussed the procedure, risks, benefits, and alternatives. Questions were answered. Patient is agreeable to proceed.
--- NOTE | 2024-04-04 10:21 | P.PNAN_ITS ---
Anes - Initial Pre Proc Eval Procedure: Operation Date: 04/04/24 10:00 Proposed Procedures p Screening Colonoscopy - Sam Overton DO Date/Time: 04/04/24 10:21 Surgeon: Sam Overton DO Pre Op Diagnosis: Screening for malignant neoplasm of colon Patient Data Age: 69 Gender: M Height: 1.83 m Weight: 91.2 kg Last Vital Signs Temp 97.1 F L 04/04/24 09:05 Pulse 84 04/04/24 09:05 Resp 18 04/04/24 09:05 BP 120/84 04/04/24 09:05 Pulse Ox 100 04/04/24 09:05 O2 Del Method Room Air 04/04/24 09:05 Allergies Allergy/AdvReac Type Severity Reaction Status Date / Time lansoprazole Allergy Intermediate JOINT PAIN Verified 04/04/24 08:59 latex Allergy Intermediate Rash Verified 04/04/24 08:59 Home Medications Medication Instructions Recorded Confirmed Type amitriptyline 50 mg tablet 50 mg PO BID 09/13/20 04/04/24 History celecoxib 200 mg capsule 200 mg PO BID PRN Pain 09/13/20 04/04/24 History folic acid 1 mg tablet 1 mg PO DAILY 09/13/20 04/04/24 History gabapentin 300 mg capsule 1,200 mg PO TID 09/13/20 04/04/24 History insulin glargine 100 unit/mL (3 25 unit subcut QPM 09/13/20 04/04/24 History mL) subcutaneous pen (Basaglar KwikPen U-100 Insulin) metformin 500 mg tablet,extended 500 mg PO DAILY 09/13/20 04/04/24 History release 24 hr metoprolol tartrate 25 mg tablet 25 mg PO BID 09/13/20 04/04/24 History methotrexate sodium 2.5 mg tablet 22.5 mg PO WEEKLY 05/04/22 04/04/24 History mirabegron 25 mg tablet,extended 25 mg PO DAILY 05/04/22 04/04/24 History release 24 hr (Myrbetriq) apixaban 5 mg tablet (Eliquis) 5 mg PO BID 02/08/23 04/04/24 History lovastatin 10 mg tablet 5 mg PO HS 02/08/23 04/04/24 History albuterol sulfate 90 mcg/actuation 2 puff inhalation QID PRN 03/29/24 04/04/24 History aerosol inhaler Shortness Of Breath Or Wheezing budesonide-formoterol HFA 160 2 puff inhalation BID 03/29/24 04/04/24 History mcg-4.5 mcg/actuation aerosol inhaler (Symbicort) cholecalciferol (vitamin D3) 25 25 mcg PO DAILY 03/29/24 04/04/24 History mcg (1,000 unit) tablet (Vitamin D3) coQ10 (ubiquinol) 200 mg capsule 200 mg PO DAILY 03/29/24 04/04/24 History gabapentin 300 mg capsule 600 mg PO BID 03/29/24 04/04/24 History insulin aspart U-100 100 unit/mL See Rx Instructions .Route .COMPLEX 03/29/24 04/04/24 History subcutaneous solution (Novolog U-100 Insulin aspart) lisinopril 2.5 mg tablet 2.5 mg PO DAILY 03/29/24 04/04/24 History taxaoopu-rj-fonqy 300 mcg-K 60 1 tablet PO DAILY 03/29/24 04/04/24 History mcg-lycop 600 mcg-lutein 300 mcg tablet (Centrum Silver Men) prednisone 5 mg tablet 10 mg PO DAILY 03/29/24 04/04/24 History saw palmetto 450 mg capsule 900 mg PO DAILY 03/29/24 04/04/24 History semaglutide 2 mg/dose (8 mg/3 mL) 2 mg subcut WEEKLY 03/29/24 04/04/24 History subcutaneous pen injector (Ozempic) Laboratory Tests 04/04/24 09:11 POC Capillary Glucose 114 H mg/dl (65-105) Patient hx anesthesia problems: none Family hx anesthesia problems: none Results Review: All pre-operative results and documents have been reviewed as part of the pre- operative evaluation. [facility] Past Medical History Medical History CAD (coronary artery disease) Diabetes Diverticulitis Hairy cell leukemia HTN (hypertension) Hyperlipidemia Surgical History Surgical History H/O rotator cuff surgery Hx of elbow surgery Previous back surgery Family History Family History Mother CAD (coronary artery disease) Father DVT (deep venous thrombosis) Pulmonary embolism Social History Social History Smoking status: Current every day smoker Tobacco type: cigarettes and cigars Additional smoking assessment comments: QUIT SMOKING CIGARETTES YEARS AGO AND NOW 2 CIGARS DAILY Alcohol intake: current Substance use: never Substance use type: does not use Living arrangements: with family Spiritual care concerns: No Anes - Eval Final PreProcedure Day of Procedure 04/04/24 10:21 Patient weight: normal Heart: regular rate and rhythm Lungs: clear to auscultation Airway: Mallampati scale class II Neurological: alert and oriented Last oral intake: >/= 8 hours ASA classification: III Emergent: no Anesthetic plan: proceed Anesthesia type and monitoring: general GIVS and standard monitoring Results Review: All pre-operative results and documents have been reviewed as part of the pre- operative evaluation. Informed Consent: The patient's anesthetic plan and its attendant risks and benefits were discussed with the patient/family/POA. Questions were solicited and answers provided to the satisfaction of the patient/family/POA.
[2024-04-04 10:31] VITALS: BP 97/52; PULSE 82; RESP 20; O2SAT 97
[2024-04-04 10:41] VITALS: BP 120/63; PULSE 82; RESP 20; O2SAT 97
[2024-04-04 10:51] VITALS: BP 119/67; PULSE 77; RESP 15; O2SAT 99
[2024-04-04 11:04] LABS: Glucose Point of Care 100 mg/dl (65-105)
== END 2024-04-04 11:04 | disposition home or self-care (01) ==
PROVIDERS: PCP Internal Medicine; Visit Provider Surgery
PROC: 0DJD8ZZ Inspection of Lower Intestinal Tract, Via Natural or Artificial Opening Endoscopic (ICD-10-PCS; CPT 45378; principal; 2024-04-04 10:00)
DX: Z12.11 Encounter for screening for malignant neoplasm of colon (principal); K57.30 Diverticulosis of large intestine without perforation or abscess without bleeding; I10 Essential (primary) hypertension; E78.5 Hyperlipidemia, unspecified; E11.9 Type 2 diabetes mellitus without complications; I25.10 Atherosclerotic heart disease of native coronary artery without angina pectoris; F17.290 Nicotine dependence, other tobacco product, uncomplicated; Z79.4 Long term (current) use of insulin; Z79.84 Long term (current) use of oral hypoglycemic drugs; Z79.01 Long term (current) use of anticoagulants; Z79.51 Long term (current) use of inhaled steroids; Z79.52 Long term (current) use of systemic steroids; Z79.85 Long-term (current) use of injectable non-insulin antidiabetic drugs; Z98.890 Other specified postprocedural states; Z98.1 Arthrodesis status; Z85.6 Personal history of leukemia; Z87.19 Personal history of other diseases of the digestive system; Z80.0 Family history of malignant neoplasm of digestive organs; Z82.49 Family history of ischemic heart disease and other diseases of the circulatory system
CPT/HCPCS: G0105; 82948; J2003; J2704; J7120

== ENCOUNTER 2025-03-22 14:15 | Outpatient (CLI) | payer MEDICARE, SELFPAY ==
--- OUTSIDE RECORDS SUMMARY | 2024-07-13 09:20 | XMS_ITS ---
Author Organization [facility] Address [address] [place], [place] [id number] Care Team Providers Care Grocery Clerk Stocking Name Role Phone OMAR GONZALEZ Unavailable [phone] Nelson Munoz Unavailable Unavailable REASON FOR VISIT toe ulcer, hammer toe Encounters Encounter Location Date Provider Diagnosis [address] [id number] 07/13/2024 OMAR GONZALEZ Plan Of Treatment Next Appt Details Provider Name:DEBBY PADRON, 05/24/2025 02:40:00 PM, [address] [place] [address], [id number], Progress Notes * ONELLE SHAYLAOB:1955 (70 yo M)Acc No.[id number]:07/13/2024 Patient: DONALD ONOFRE Provider: Honorio Gonzalez DPM :1955 A ge:69 Y S ex:Male Date:07/13/2024 Address:[address] [facility] Subjective: * Chief Complaints: * T oe ulcer, hammer toe Billing Information: * Procedure Codes: * Electronic signature of OMAR GONZALEZ DPM on 03/22/2025 at 02:42 PM AUTOMATIC ENGRAVER Sign off status: Pending * Provider: Honorio Gonzalez DPM Date: 0 07/13/2024 Generated for Printi ng/Faxing/eTransmitting on: 1 05/22/2024 02:42 PM AUTOMATIC ENGRAVER
--- OUTSIDE RECORDS SUMMARY | 2024-08-10 05:20 | XMS_ITS ---
Author Organization [facility] Address [address] [place], [place] [address] Care Team Providers Care Charter Representative Name Role Phone OMAR GONZALEZ Unavailable [phone] Nelson Munoz Unavailable Unavailable DEBBY FORBES Unavailable [phone] REASON FOR VISIT *Wound check Encounters Encounter Location Date Provider Diagnosis [address] [id number] 08/10/2024 DEBBY FORBES Plan Of Treatment Next Appt Details Provider Name:DEBBY PADRON, 05/24/2025 02:40:00 PM, [address] [place] [address], [id number], Progress Notes * SHAYLA DRAKEOB:1955 (70 yo M)Acc No.[id number]:08/10/2024 Patient: DONALD ONOFRE Provider: Vic FORBES :1955 A ge:69 Y S ex:Male Date:08/10/2024 Address:[address] [facility] Subjective: * Chief Complaints: * * Wound check Billing Information: * Procedure Codes: * Electronic signature of KENYA FORBES DPM on 03/22/2025 at 02:43 PM MAPPER Sign off status: Pending * Provider: Vic FORBES Date: 0 08/10/2024 Generated for Printi ng/Fajoyceg/eTransmitting on: 1 05/22/2024 02:43 PM MAPPER
--- OUTSIDE RECORDS SUMMARY | 2024-10-12 04:40 | XMS_ITS ---
Author Organization [facility] Address [address] [place], [place] [address] Care Team Providers Care Farmworker Field Crop Name Role Phone OMAR GONZALEZ Unavailable [phone] Nelson Munoz Unavailable Unavailable DEBBY FORBES Unavailable [phone] Allergies Allergen (clinical drug ingredient) Drug/Non Drug [...] a day Active Celecoxib Active Vitamin D3 4330336 UNIT/GM Liquid as directed Active Lisinopril Active [...] 10/12/2024 Encounters Encounter Location Date Provider Diagnosis [address] [id number] 10/12/2024 DEBBY FORBES Acquired keratosis [keratoderma] palmaris et plantaris L85.1 ; 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 10/12/2024 Atherosclerosis of [place] arteries of extremities with intermittent claudication, bilateral [...] will consider wearing better shoes. Atherosclerosis of [place] ar teries of extremities with intermittent claudication, [...] Provider Name:DEBBY Saul PADRON, 05/24/2025 02:40:00 PM, [address] [place] [address], [id number], History and Physical Notes * HPI (History of Present Illness) Category Sub-Category Detail Notes Category Not es HPI Follow Up Visit Patient presents for follow-up visit for a wound on the left 2nd digit. The wound is healed, and the patient has no concerns. Patient states that he has a callus on the right heel that he would like looked at. , MA: [facility] Examination Category Sub-Category Detail Notes Category [...] rigid and nonreducible Progress Notes * NOELLE BENTONSILVIOOB:1955 (70 yo M)Acc No.[id number]:10/12/2024 Patient: DONALD ONOFRE Provider: Vic FORBES :1955 A ge:69 Y S ex:Male Date:10/12/2024 Address:[address] [place] [address] Subjective: * Chief Complaints: * * Wound check * HPI: H PI: Follow Up Visit P alex presents for follow-up visit for a wound on the left 2nd digit. The wound is healed, and the patient has no concerns. Patient states that he has a callus on the right heel that he would like looked at. , MA: [facility]. * ROS: G eneral / Constitutional: [...] Silver 50+Men Co Q 10 Vitamin D3 8569255 UNIT/GM Liquid as directed Medication List reviewed [...] Taking Co Q 10 Taking Vitamin D3 5767836 UNIT/GM Liquid as directed Medication List reviewed [...] - M20.42 4 . A therosclerosis of [place] arteries of extremities with intermittent claudication, bilateral [...] wearing better shoes. 4. A therosclerosis of [place] arteries of extremities with intermittent claudication, bilateral [...] Months,General Care Billing Information: * Visit Code: 82530 Office Visit, Est Pt., Level 3. * Procedure Codes: * Electronic signature of KENYA FORBES DPM on 03/22/2025 at 02:43 PM PICKING CREW SUPERVISOR Sign off status: Pending * Provider: Vic FORBES Date: 0 10/12/2024 Generated for Chris alfaro/Nae/Sarahitting on: 1 05/22/2024 02:43 PM PICKING CREW SUPERVISOR
--- OUTSIDE RECORDS SUMMARY | 2024-10-26 05:10 | XMS_ITS ---
Author Organization [facility] Address [address] [place], [place] [address] Care Team Providers Care Platen Builder Up Name Role Phone OMAR GONZALEZ Unavailable [phone] Nelson Munoz Unavailable Unavailable DEBBY FORBES Unavailable [phone] REASON FOR VISIT *General care Medications Medication SIG (Take, Route, Frequency, Duration) Notes Start Date End Date Status Celecoxib Active Vitamin D3 7526541 UNIT/GM Liquid as directed Active Eliquis Active [...] Active Encounters Encounter Location Date Provider Diagnosis [address] [id number] 10/26/2024 DEBBY FORBES Acquired keratosis [keratoderma] palmaris et plantaris L85.1 ; 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 10/26/2024 Atherosclerosis of [place] arteries of extremities with intermittent claudication, bilateral [...] will consider wearing better shoes. Atherosclerosis of [place] ar teries of extremities with intermittent claudication, [...] Reason: Provider Name:DEBBY PADRON, 05/24/2025 02:40:00 PM, [address] [place] [address], [id number], History and Physical Notes * Examination Category [...] Notes * LAURY DRAKE:1955 (70 yo M)Acc No.[id number]:10/26/2024 Patient: DONALD ONOFRE Provider: Vic FORBES :1955 A ge:69 Y S ex:Male Date:10/26/2024 Address:[address] [place] [address], [place] [address] Subjective: * Chief Complaints: * * General [...] Silver 50+Men Co Q 10 Vitamin D3 9129922 UNIT/GM Liquid as directed Taking Celecoxib Taking [...] Taking Co Q 10 Taking Vitamin D3 3345505 UNIT/GM Liquid as directed Objective: * Examination: [...] - M20.42 4 . A therosclerosis of [place] arteries of extremities with intermittent claudication, bilateral [...] wearing better shoes. 4. A therosclerosis of [place] arteries of extremities with intermittent claudication, bilateral [...] FORBES DPM on 03/22/2025 at 02:43 PM AUTO POLISHER Sign off status: Pending * Provider: Vic FORBES Date: 0 10/26/2024 Generated for Chris alfaro/Nae/Karen on: 1 05/22/2024 02:43 PM AUTO POLISHER
--- OUTSIDE RECORDS SUMMARY | 2024-11-09 09:30 | XMS_ITS ---
Author Organization [facility] Address [address] [place], [place] [id number] Care Team Providers Care Chemical Process Project Engineer Name Role Phone OMAR QUINTANA Unavailable [phone] Nelson Munoz Unavailable Unavailable DEBBY FORBES Unavailable [phone] Allergies Allergen (clinical drug ingredient) Drug/Non Drug Allergy documented on EMR Reaction Allergy Type Onset Date Status lansoprazole Prevacid Unknown Drug Allergy Acti ve Latex Latex Unknown Allergy Active REASON FOR VISIT *General care Medications Medication SIG (Take, Route, Frequency, Duration) Notes Start Date End Date Status Albuterol Sulfate Ac tive Celecoxib Active predniSONE Active Vitamin D3 0107489 UNIT/GM Liquid as directed Active Co Q [...] Alcohol/Beer Encounters Encounter Location Date Provider Diagnosis [address] [id number] 11/09/2024 DEBBY FORBES Acquired keratosis [keratoderma] palmaris et plantaris L85.1 ; 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 11/09/2024 Atherosclerosis of [place] arteries of extremities with intermittent claudication, bilateral [...] will consider wearing better shoes. Atherosclerosis of [place] ar teries of extremities with intermittent claudication, [...] Reason: Provider Name:DEBBY PADRON, 05/24/2025 02:40:00 PM, [address] [place] [address], [id number], History and Physical Notes * HPI (History [...] Notes * SHAYLA DRAKEOB:1955 (70 yo M)Acc No.[id number]:11/09/2024 Patient: Onelia BOSCHELEAZAR DONALD Provider: Vic FORBES :1955 A ge:69 Y S ex:Male Date:11/09/2024 Address:[address] [place], [place] [phone] Subjective: * Chief Complaints: * * General [...] Silver 50+Men Co Q 10 Vitamin D3 0143696 UNIT/GM Liquid as directed Medication List reviewed [...] Taking Co Q 10 Taking Vitamin D3 7848513 UNIT/GM Liquid as directed Medication List reviewed [...] - M20.42 4 . A therosclerosis of [place] arteries of extremities with intermittent claudication, bilateral [...] wearing better shoes. 4. A therosclerosis of [place] arteries of extremities with intermittent claudication, bilateral [...] SKIN LESIONS, 2 TO 4, Modifiers: Q8 12980 DEBRIDE NAIL, 6 OR MORE, Modifiers: 59 , Q8 * Follow Up: 2 Months,General Care Billing Information: * Procedure Codes: 05605 TRIM SKIN LESIONS, 2 TO 4. Modifiers: Q8 90464 DEBRIDE NAIL, 6 OR MORE. Modifiers: 59, Q8 * Electronic signature of KENYA FORBES DPM on 03/22/2025 at 02:43 PM FAMILY DAY CARER Sign off status: Pending * Provider: Vic FORBES Date: 0 11/09/2024 Generated for Chris alfaro/Nae/Karen on: 1 05/22/2024 02:43 PM FAMILY DAY CARER
--- OUTSIDE RECORDS SUMMARY | 2025-01-11 09:30 | XMS_ITS ---
Author Organization [facility] Address [address] [place], [place] [address] Care Team Providers Care Executive Compensation Analyst Name Role Phone OMAR GONZALEZ Unavailable [phone] Nelson Munoz Unavailable Unavailable DEBBY FORBES Unavailable [phone] Allergies Allergen (clinical drug ingredient) Drug/Non Drug [...] Active Co Q 10 Active Vitamin D3 6340986 UNIT/GM Liquid as directed Active metFORMIN HCl [...] 01/11/2025 Encounters Encounter Location Date Provider Diagnosis [address] [id number] 01/11/2025 DEBBY FORBES Other hammer toe(s) (acquired), left foot M20.42 ; Tinea unguium B35.1 ; Atherosclerosis of [place] arteries of extremities with intermittent claudication, bilateral [...] nail nipper without incident. 01/11/2025 Atherosclerosis of [place] arteries of extremities with intermittent claudication, bilateral [...] a nail nipper without incident. Atherosclerosis of [place] ar teries of extremities with intermittent claudication, [...] Name:DEBBY Hughes KELSEY PADRON, 05/24/2025 02:40:00 PM, [address] [place] [address], [id number], History and Physical Notes * HPI (History [...] Notes * SHAYLA DRAKEOB:1955 (70 yo M)Acc No.[id number]:01/11/2025 Patient: DONALD ONOFRE Provider: Vic FORBES :1955 A ge:69 Y S ex:Male Date:01/11/2025 Address:[address] [place] [address] Subjective: * Chief Complaints: * * General [...] Silver 50+Men Co Q 10 Vitamin D3 0380781 UNIT/GM Liquid as directed Medication List reviewed [...] Taking Co Q 10 Taking Vitamin D3 7497345 UNIT/GM Liquid as directed Medication List reviewed [...] - M20.42 3 . A therosclerosis of [place] arteries of extremities with intermittent claudication, bilateral [...] anti-inflammatories, and orthotics. 3. A therosclerosis of [place] arteries of extremities with intermittent claudication, bilateral [...] SKIN LESIONS, 2 TO 4, Modifiers: Q8 49115 DEBRIDE NAIL, 6 OR MORE, Modifiers: 59 , Q8 * Preventive Medicine: Screenings: F all risk screening F all Risk Assessment: N o falls in the past year. * Follow Up: 2 Months,General Care Billing Information: * Procedure Codes: 49628 TRIM SKIN LESIONS, 2 TO 4. Modifiers: Q8 44204 DEBRIDE NAIL, 6 OR MORE. Modifiers: 59, Q8 * Electronic signature of KENYA FORBES DPM on 03/22/2025 at 02:43 PM PALLET REPAIRER Sign off status: Pending * Provider: Vic FORBES Date: 0 01/11/2025 Generated for Chris alfaro/Nae/Karen on: 1 05/22/2024 02:43 PM PALLET REPAIRER
--- OUTSIDE RECORDS SUMMARY | 2025-03-15 08:10 | XMS_ITS ---
Author Organization [facility] Address [address] [place], [place] [id number] Care Team Providers Care Burner Technician Name Role Phone OMAR QUINTANA Unavailable [phone] Nelson Munoz Unavailable Unavailable DEBBY FORBES Unavailable [phone] Allergies Allergen (clinical drug ingredient) Drug/Non Drug [...] Orally Once a day Active Vitamin D3 7134037 UNIT/GM Liquid as directed Active NovoLOG Active [...] 03/15/2025 Encounters Encounter Location Date Provider Diagnosis [address] [id number] 03/15/2025 DEBBY FORBES Plan Of Treatment Next Appt Details Provider Name:DEBBY PADRON, 05/24/2025 02:40:00 PM, [address] [place] [address], [id number], History and Physical Notes * HPI (History [...] Notes * SHAYLA DRAKEOB:1955 (70 yo M)Acc No.[id number]:03/15/2025 Patient: DONALD ONOFRE Provider: Vic FORBES :1955 A ge:70 Y S ex:Male Date:03/15/2025 Address:[address] [place], [place] [address] Subjective: * Chief Complaints: * * General [...] Silver 50+Men Co Q 10 Vitamin D3 6305967 UNIT/GM Liquid as directed Medication List reviewed [...] Taking Co Q 10 Taking Vitamin D3 7358444 UNIT/GM Liquid as directed Medication List reviewed and reconciled with the patient * Allergies: P revacidLatexyesAllergies Verified. Objective: * Vitals: S hoe Size: 10, Wt:200lbs, Wt-k.72 kg, Ht: 72 in, Ht-cm: 182.88 cm, BMI:27.12Index, Body Surface Area: 2.14. Billing Information: * Procedure Codes: * Electronic signature of KENYA FORBES DPM on 03/22/2025 at 02:42 PM PRESS SECRETARY Sign off status: Pending * Provider: Vic FORBES Date: 05/15/2024 Generated for Chris alfaro/Nae/Karen on: 05/22/2024 02:42 PM PRESS SECRETARY
--- NOTE | ~2025-03-22 | MR_ITS ---
EXAMINATION: MR brain/brain stem wo con DATE: 03/22/2025 16:26 INDICATION: Memory loss TECHNIQUE: Magnetic resonance imaging (MRI) of the brain and brainstem was performed without intravenous contrast. COMPARISON: None. FINDINGS: Mild diffuse volume loss and chronic microvascular ischemic appearing periventricular white matter changes. No restricted diffusion or acute ischemic event. No intracranial hemorrhage/bleeds. Brainstem and cerebellum appear normal. Paranasal, para orbital calvarial structures unremarkable. Vascular flow voids patent at the skull base. IMPRESSION: 1. No acute ischemic event, mass or hemorrhage. No micro-bleeds. 2. Chronic ischemic appearing white matter changes. Reviewed, dictated and finalized at location A. ORT TRAFFIC CONTROLLER
--- NOTE | ~2025-03-22 | CT_ITS ---
CT diagnostic chest wo con HISTORY:ABNORMAL CHEST CT COMPARISON: 05/25/2023. TECHNIQUE: Axial images of the chest were obtained without infusion of intravenous contrast. Dose optimization technique was utilized. FINDINGS: The examination demonstrates mild periseptal emphysema. Mild subpleural reticulation noted grossly unchanged from previous study. There is mild bronchiectasis which is stable. There is a 5.6 mm pulmonary nodule in the superior right lower lobe measured on axial image 78. This is new. Pleural-based 5 mm pulmonary nodule in the posterior left lower lobe is stable. Cardiac size and mediastinal configuration are normal in appearance. Multiple axillary lymph nodes bilaterally the largest in the right axilla measuring 1.5 x 0.8 cm in largest the left axilla measuring 1.2 cm. These are stable. There is no mediastinal lymphadenopathy. Coronary artery calcifications are noted. The thoracic aorta is normal in caliber. Osseous structures are intact. IMPRESSION: Emphysematous changes are stable. 5.6 mm pulmonary nodule in the superior segment of the right lower lobe. This can be follow-up with CT chest in 6 months. Prominent axillary lymph nodes are stable. All CT scans at this facility are performed using low dose modulation techniques as appropriate to perform exam including the following: automated exposure control; use of iterative reconstruction technique; adjustment of the mA and/or kV according to patient size (this includes techniques or standardized protocols for targeted exams where dose is matched to indication/reason for exam). Reviewed, dictated and finalized at location S. ER TALLIER IMPRESSION: Emphysematous changes are stable. 5.6 mm pulmonary nodule in the superior segment of the right lower lobe. This c an be follow-up with CT chest in 6 months. Prominent axillary lymph nodes are stable. All CT scans at this facility are performed using low dose modulation techniqu es as appropriate to perform exam including the following: automated exposure c ontrol; use of iterative reconstruction technique; adjustment of the mA and/or kV according to patient size (this includes techniques or standardized protocol s for targeted exams where dose is matched to indication/reason for exam).
--- OUTSIDE RECORDS SUMMARY | 2025-03-22 14:42 | XMS_ITS | Encounter Summary ---
Author Organization [facility] [employer] [facility] Address [address] [place] [address] Phone Care Team Providers Care Copy Technician Name Role Phone Nelson Munoz MD Primary Care Provider [phone] Encounter Details Date Type Department Care Team (Late st Contact Info) Description 05/26/2019 Orders Only [facility] Scanning, Provider Social History Tobacco Use Types Packs/Day Years Used Date Smoking Tobacco: Every Day Cigarettes Smokeless Tobacco: Never Sex and Gender Information Value Date Recorded Sex Assigned at Not on file Legal Sex Male 12:17 AM BUS AND TROLLEY 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 Gender Identity Male 01/06/2023 12:03 PM CDT Sexual Orientation Straight 01/06/2023 12 :03 PM CDT documented as of this encounter Plan of Treatment Not on file documented as of this encounter Procedures Procedure Name Priority Date/Time Associated Diagnosis Comments SCAN - LABS 05/26/2019 documented in this encounter Results * SCAN - LABS (05/26/2019) us Provider Scanning Final Result documented in this encounter Visit Diagnoses Not on filedocumented in this encounter Care Teams Copy Technician Relationship Specialty Start Date End Date Nelson Munoz MD [address] [place] [address] PCP - General 07/21/16 documented as of this encounter
--- OUTSIDE RECORDS SUMMARY | 2025-03-22 14:42 | XMS_ITS | Encounter Summary ---
Author Organization [facility] [employer] [facility] Address [address] [place] [address] Phone Care Team Providers Care Boat Rigger Name Role Phone Nelson Munoz MD Primary Care Provider [phone] Encounter Details Date Type Department Care Team (Late st Contact Info) Description 09/12/2019 Orders Only [facility] Scanning, Provider Social History Tobacco Use Types Packs/Day Years Used Date Smoking Tobacco: Every Day Cigarettes Smokeless Tobacco: Never Sex and Gender Information Value Date Recorded Sex Assigned at Not on file Legal Sex Male 12: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 Gender Identity Male 01/06/2023 12:03 PM CDT Sexual Orientation Straight 01/06/2023 12 :03 PM CDT documented as of this encounter Plan of Treatment Not on file documented as of this encounter Procedures Procedure Name Priority Date/Time Associated Diagnosis Comments SCAN - LABS 09/12/2019 documented in this encounter Results * SCAN - LABS (09/12/2019) us Provider Scanning Final Result documented in this encounter Visit Diagnoses Not on filedocumented in this encounter Care Teams Boat Rigger Relationship Specialty Start Date End Date Nelson Munoz MD [address] [place] [address] PCP - General 07/21/16 documented as of this encounter
--- OUTSIDE RECORDS SUMMARY | 2025-03-22 14:43 | XMS_ITS | Clinical Summary ---
Author Organization [facility] [employer] Address [address] [place] [address] Care Team Providers Care Electronic Assembler Name Role Phone Nelson Munoz MD Primary Care Provider Ximena MEDNES MD, Osorio Unavailable [phone] Source Comments [facility],non-owned Affiliates and Associated Physician Practices is amultiple site organization consisting of ambulatory clinics and hospital sitesin [place], [place], [place] and [place]. This disclosure is being madepursuant to the Care Everywhere program and may not contain all information available regarding this patient. Last updated 18.[facility] [employer] Allergies Active Allergy Reactions Criticality Noted Date Comments Latex Unknown 10/18/2020 Medications * Be aware that medications may not be up to date on this document. Alwaysverify current medications with the patient. aspirin (ASPIRIN 81) 81 MG chew tablet Take 81 mg by mouth once daily Active Misc Natural Products (GLUCOSAMINE CHONDROITIN ADV) TABS 1.2-1.5mg Active vitamin D3 (CHOLECALCIFERO L) 25 MCG (1000 UNITS) tablet Take 1,000 Units by mouth once daily Active Coenzyme Q10 (CO Q-10) 100 MG Active Multiple Vitamin (MULTI-VITAMIN DAILY PO) Active amitriptyline (ELAVIL) 50 MG tablet Take 50 mg by mouth at bedtime Active metFORMIN (GLUCOPHAGE) 500 MG tablet Take 500 mg by mouth 2 times daily with morning and evening meal Active lisinopril (ZESTRIL; PRINIVIL) 1 mg/ml SUSP Take 10 mg by mouth once daily Active gabapentin (NEURONTIN) 300 MG capsule Take 300 mg by mouth 3 times daily Active metoprolol tartrate (LOPRESSOR) 25 MG tablet Take 25 mg by mouth 2 times daily 11/07/19 21 Active lovastatin (MEVACOR) 10 MG tablet Take 10 mg by mouth at bedtime Active folic acid (FOLVITE) 1 MG tablet Take 1 mg by mouth once daily 10/25/19 21 Active methotrexate (RHEUMATREX) 2.5 MG tablet TAKE FIVE TABLET BY MOUTH IN THE MORNING AND EVENING ONE DAY PER WEEK (TOTAL DOSE IS 25MG WEEKLY) 11/16/19 21 Active certolizumab pegol (CIMZIA) injection Inject subcutaneously every 28 days Active Active Problems Problem Noted Date Diagnosed Date Anemia 03/06/2020 Rheumatoid arthritis involving multiple sites 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 Social History Tobacco Use Types Packs/Day Years Used Date Smoking Tobacco: Never Assessed Sex and Gender Information Value Date Recorded Sex Assigned at Not on file Legal Sex Male 8:37 AM CDT Gender Identity Not on file Sexual Orientation Not on file Last Filed Vital Signs Vital Sign Reading Time Taken Comments Blood Pressure - - Pulse - - Temperature - - Respiratory Rate - - Oxygen Saturation - - Inhaled Oxygen Concentration - - Weight 102.1 kg (225 lb) 11/26/2020 1:37 PM CDT Height 185.4 cm (6' 1) 11/26/2020 1:37 PM CDT Body Mass Index 29.69 11/26/2020 1:37 PM CDT Plan of Treatment Health Maintenance Due Date Last Done Comments COLOGUARD (AGES 45-75) - COL ON CA SCREENING 1955 COLON MONITORING 1955 COLONOSCOPY - COLON CA SCREENING 1955 CT COLONOGRAPHY - COLON CA SCREENING 1955 Colorectal Cancer Screening 1955 FIT - COLON CA SCREENING 1955 FLEX SIG - COLON CA SCREENING 1955 HEPATITIS C SCREENING 01/25/1972 DTAP/TDAP/TD VACCINES (1 - Tdap) 1973 PNEUMOCOCCAL VACCINE 50+ (1 of 1 - PCV) 01/30/2004 ZOSTER VACCINE (1 of 2) 01/30/2004 SCREENING FOR DIABETES 11/26/2020 DEPRESSION SCREENING 05/10/2024 COVID-19 VACCINE ( - 2023-2 5 season) 2025 INFLUENZA VACCINE (#1) 2025 Respiratory Syncytial Virus (RSV) Vaccine Pt: or over 60 yrs (1 - 1-dose 75+ series) 2029 HEPATITIS B VACCINE Aged Out No longe r eligible based on patient's age to complete this topic HIB VACCINE Aged Out No longer eligi ble based on patient's age to complete this topic HPV VACCINE Aged Out No longer eligi ble based on patient's age to complete this topic MENINGOCOCCAL (Group B) VACC INE SHARED DECISION-MAKING Aged Out No longer eligibl e based on patient's age to complete this topic MENINGOCOCCAL GROUPS A/C/Y/W VACCINE Aged Out No longer eligible b ased on patient's age to complete this topic Insurance MEDICARE MEDICARE SUPPLEMENT [employer]YOR GENERIC Member Subscriber Plan / Payer (Ef fective 2013-Present) Name:Lavell Santoro Relation to Subscriber:Self Name:Lavell Santoro Payer ID:Not on file Group ID:Not on file Type:[employer] Address: MEDICARE SUPPLEMENT [address] [address] [place] [address] Care Teams Electronic Assembler Relationship Specialty Start Date End Date Nelson Munoz MD [address] [place] [id number] PCP - General Internal Medicine 10/18/[address] [place] [address] [address] Orthopedic Surgery 11/26/20
--- OUTSIDE RECORDS SUMMARY | 2025-03-22 14:43 | XMS_ITS ---
Author Organization [facility] Address [address] [place] [address] Care Team Providers Care Dealer Sales Rep Name Role Phone Nelson Munoz MD Primary Care Provider [phone] Active Problems Patient Care Coordination No te Formatting of this note migh t be different from the original. This is a 67-year-old male presenting to us at the request of Dr. Nelson Munoz for an evaluation of a pulmonary nodule. He has a medical history significant for OBINNA on CPAP, hypertension, hyperlipidemia, type 2 diabetes and COPD. He has a medical history significant for hairy cell leukemia that was diagnosed in 1994 in which he went into complete remission after 1 cycle of CDA. He had a relapse in 2005 with 2nd remission following treatment. He was diagnosed with rheumatoid arthritis in 2019. His symptoms are well controlled with his current regimen of methotrexate and golimumab. He underwent a chest CT on 11/11/2022. There is no evidence of any significant mediastinal, hilar or axillary lymphadenopathy. There is no filling defect in the pulmonary arterial tree to suggest pulmonary embolus. There is no evidence of aortic dissection or aneurysm. There is no evidence of pleural or pericardial effusion. There is a 12 mm nodular opacity at the right lung base. There is mild diffuse subpleural reticulation and minimal interstitial thickening in the upper lobes. There is mild ground-glass opacity in the right upper lobe. Images through the upper abdomen reveal small, suspected hepatic cysts. He is here for further surgical evaluation and discussion. 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 Past Treatment and Therapy Plans No past plan information found. Lifetime Dose Tracking * Chemical Lifetime Dose Automatic Entry Manual Entr y DLP 459 mGycm 459 mGycm 0 mGycm
--- OUTSIDE RECORDS SUMMARY | 2025-03-22 14:43 | XMS_ITS | Clinical Summary ---
Author Organization [facility] Address [address] [place] [address] Care Team Providers Care Microarray Analyst Name Role Phone Nelson Munoz MD Primary Care Provider [phone] Allergies Active Allergy Reactions Criticality Noted Date Comments Adhesive Tape-Silicones Rash Medium 01/17/2015 Latex Rash Medium 10/18/2020 Other Rash Medium 06/21/2017 Lansoprazole Joint pain Low 03/16/2018 Medications amitriptyline (ELAVIL) 50 mg tablet 2 times daily. Activ e aspirin 81 mg tablet daily Active ONETOUCH VERIO strip USE TO CHECK BLOOD SUGAR 4 TIMES A DAY DX E11.65 3 8 Active coenzyme Q10 400 mg capsule daily. Activ e lovastatin (MEVACOR) 10 mg tablet 0.5 tablets (5 mg total) daily Active metoprolol (LOPRESSOR) 25 mg tablet 2 times daily. Activ e multivitamin tabletIndicati ons:Vitamin Deficiency Prevention daily. Active saw palmetto 160 mg capsule daily. Activ e cholecalcifero l (VITAMIN D-3) 2,000 unit tablet daily. Active celecoxib (CeleBREX) 200 mg capsule 0 Active folic acid (FOLVITE) 1 mg tablet Take 1 tablet (1,000 mcg total) by mouth daily 0 Active methotrexate 2.5 mg tablet TAKE FIVE TABLET BY MOUTH IN THE MORNING AND EVENING ONE DAY PER WEEK (TOTAL DOSE IS 25MG WEEKLY) 0 Active pen needle, diabetic 32 gauge x 5/32 needle 0 Active tamsulosin (FLOMAX) 0.4 mg extended release capsule 1 capsule (0.4 mg total) Active golimumab (SIMPONI ARIA) 12.5 mg/mL solutionIndica tions:Rheumato id Arthritis Active BASAGLAR 100 unit/mL (3 mL) pen for injection 30 Units 3 Active Myrbetriq 25 mg tablet extended release 24 hr TAKE 1 TABLET BY MOUTH ONCE DAILY SWALLOWING WHOLE WITH WATER. DO NOT CRUSH, CHEW AND/OR DIVIDE. 3 Active amoxicillin 500 mg capsule 3 Active amoxicillin-cl avulanate (AUGMENTIN) 875-125 mg per tablet Take 1 tablet by mouth every 12 (twelve) hours 3 Active Eliquis 5 mg tablet 3 Active azithromycin (ZITHROMAX) 250 mg tablet 3 Active Symbicort 160-4.5 mcg/actuation inhaler 3 Active predniSONE (DELTASONE) 5 mg tablet 3 Active gabapentin (NEURONTIN) 800 mg tablet Take 1 tablet (800 mg total) by mouth 2 (two) times a day 3 Active Ozempic 2 mg/dose (8 mg/3 mL) pen injector injection 3 Active metFORMIN XR (GLUCOPHAGE XR) 500 mg 24 hr tablet Take 1 tablet (500 mg total) by mouth every morning 3 Active Incruse Ellipta 62.5 mcg/actuation blister with device 3 Active terbinafine (LamiSIL) 250 mg tablet 3 Active NovoLOG 100 unit/mL vial for injection INJECT 30 UNITS SUBCUTANEOUSLY THREE TIMES DAILY WITH MEALS 3 Active albuterol 1.25 mg/3 mL nebulizer solution USE 1 VIAL IN NEBULIZER 3 TO 4 TIMES DAILY 4 Active azelastine (ASTELIN) 137 mcg (0.1 %) nasal spray 4 Active SEMGLEE-yfgn 100 unit/mL (3 mL) pen for injection 4 Active lisinopriL (PRINIVIL,ZEST RIL) 2.5 mg tablet Take 1 tablet (2.5 mg total) by mouth daily 4 Active ob-qid-qbomb-K 3-urfxizm-vnma in 232-31-355-300 mcg tablet Centrum Silver 50+Men Active Active Problems Patient Care Coordination No te [...] sites Anemia 03/06/2020 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) from Last 3 Months Immunizations Immunization Administration Dates Next Due Influenza, Quadrivalent, Hig h Dose, Preservative Free, Intrr 01/13/2020 Influenza, Quadrivalent, Split, Intramuscular ,02/27/2014 Influenza, Quadrivalent, Spl it, Preservative Free, Intramuscular 02/24/2018,02/26/2017 Influenza, Trivalent, High D ose, Split, Preservative Free, Intramuscular 01/30/2019,01/15/2012 Influenza, Trivalent, IM (MDV) 03/17/2013 Influenza, Trivalent, Preservative Free, Intramu scular 12/25/2014 Pneumococcal Conjugate PCV 13 10/23/2014 Tdap 08/27/2016 ZOSTER Recombinant 02/25/2019,12/05/2018 Surgical History Surgery Date Site/Laterality Comments HEMORRHOID SURGERY Hemorrhoidectomy - 06/15/03 (Added by TW Conv) BACK SURGERY Back Surgery - 02/12/88 (Added by TW Conv) ELBOW SURGERY Elbow Surgery - 10/06/02 (Added by TW Conv) ROTATOR CUFF REPAIR Rotator Cuff Repair - (Added by TW Conv) OH NJX AA&/STRD TFRML EPI CERVICAL/THORACIC 1 LEVEL Corticosteroid Inj Transforaminal Approach Cervical W/ Fluoroscopic Guidance - (Added by TW Conv) OH INJ CERV/THORAC,W/WO CNTRST Corticosteroid Injection Interlaminar Approach Cervical - (Added by TW Conv) OH INJ CERV/THORAC,W/WO CNTRST Corticosteroid Injection Interlaminar Approach Cervical - (Added by TW Conv) OH INJ CERV/THORAC,W/WO CNTRST Corticosteroid Injection Interlaminar Approach Cervical - (Added by TW Conv) OH INJ CERV/THORAC,W/WO CNTRST Corticosteroid Injection Interlaminar Approach Cervical - (Added by TW Conv) OH INJ CERV/THORAC,W/WO CNTRST Corticosteroid Injection Interlaminar Approach Cervical - CEST (Added by TW Conv) CORTICOSTEROIDS INJECTION Corticosteroids Injection - cervical (Added by TW Conv) Medical History Medical History Date Comments Hairy cell leukemia not havi ng achieved remission (HCC) Hairy cell leukemia - (Added by TW Conv) Type 2 diabetes mellitus wit h diabetic polyneuropathy (HCC) Diabetic peripheral neuropat hy associated with type 2 diabetes mellitus - (Added by TW Conv) Personal history of other di seases of the nervous system and sense organs History of sleep apnea - (Added by TW Conv) Personal history of other di seases of the musculoskeletal system and connective tissue History of back pain - (Adde d by TW Conv) Family History Medical History Relation Name Comments Heart attack Mother Relation Name Status Comments Mother Social History Tobacco Use Types Packs/Day Years Used Date Smoking Tobacco: Former Cigarettes Passive Smoke Exposure: Past Smokeless Tobacco: Never Tobacco Cessation:Counseling Given: Not Answered Sex and Gender Information Value Date Recorded Sex Assigned at Not on file 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 Gender Identity Male 01/06/2023 12:03 PM CDT Sexual Orientation Straight 01/06/2023 12 :03 PM CDT Last Filed Vital Signs Vital Sign Reading Time Taken Comments Blood Pressure 143/78 01/03/2025 2:23 PM CDT Pulse 76 01/03/2025 2:23 PM CDT Temperature 36.6 C (97.8 F) 01/03/2025 2:23 PM CDT Respiratory Rate 18 01/03/2025 2:23 PM CDT Oxygen Saturation 98% 01/03/2025 2:23 PM CDT Inhaled Oxygen Concentration - - Weight 90.4 kg (199 lb 3.2 oz) 01/03/2025 2:23 P M CDT Height 182.9 cm (6') 01/03/2025 2:23 PM CDT Body Mass Index 27.02 01/03/2025 2:23 PM CDT Plan of Treatment Health Maintenance Due Date Last Done Comments Colon Cancer Screening-Colonoscopy 1954 Depression Screening 1954 Fall Risk Assessment 1955 Hepatitis C Screening 1955 Hepatitis B Screening 01/30/1972 Pneumococcal vaccine 65+ (2 of 2 - PPSV23, PCV20, or PCV21) 12/18/2014 10/23/2014 Abdominal Aortic Aneurysm (A AA) Screen 2019 Well Visit 65+ 2019 Influenza Vaccine (#1) 2025 , 01/30/2019, 02/24/2018, Additional history exists DTaP/Tdap/Td Vaccine (2 - Td or Tdap) 08/27/2026 08/27/2016 Zoster Vaccine Completed 02/25/2019, 12/05/2018 Procedures Procedure Name Priority Date/Time Associated Diagnosis Comments EGFR Routine 01/03/2025 2:08 PM CDT 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 73 m2 Comment: Interpretive Data Reference Interval Normal >/= 90 mL/min/1.73m2 Mildly decreased* 60 - 89 mL/min/1.73m2 Mildly to moderately decreased 45 - 59 mL/min/1.73m2 Moderately to severely decreased 30 - 44 mL/min/1.73m2 Severely decreased 15 - 29 mL/min/1.73m2 Kidney Failure < 15 mL/min/1.73m2 *Relative to young adult level Estimated glomerular filtration rate is determined by the 2020 CKD-EPI equation recommended by the National Kidney Foundation (A Unifying Approach to GFR Estimation: Recommendations of the NKF-ASK Task Force on Reassessing the Inclusion of Race in Diagnosing Kidney Disease, JASN 202). The CKD-EPI equation should not be used for patients with unstable renal function and has not been validated in children and those over 70. Current interpretive data was last reviewed 2021. Blood 01/03/2025 2:08 PM CDT 01/03/2025 2:23 PM CDT us Vito De León MD LAB BLOOD ORDERABLES Final R esult [facility] [place] [address] * Differential, auto (01/03/2025 2:08 PM CDT) Neutrophil abs 5.01 1.50 - 6.50 K/cumm Comment:Testing performed by : [facility], [address] [place] [phone] Lymphocyte abs 2.41 0.80 - 3.30 K/cumm [facility] Comment:Testing performed by : [facility], [address] [place] [phone] Monocyte abs 0.45 0.20 - 0.80 K/cumm [facility] Comment:Testing performed by : [facility], [address] [place], [place] [id number] Eosinophil abs 0.17 0.00 - 0.50 K/cumm [facility] Comment:Testing performed by : [facility], [address] [place] [phone] Basophil abs 0.05 0.00 - 0.10 K/cumm [facility] Comment:Testing performed by : [facility], [address] [place] [phone] Neutrophil pct 62.0 % [facility] Comment: Interpretive Data Percent cell count reference ranges are not reported, since discordance with absolute values may lead to misinterpretation of CBC data. Current Interpretive Data was last revised on 2017. Testing performed by: [facility], [address] [place] [phone] Lymphocyte pct 29.8 % [facility] Comment: Interpretive Data Percent cell count reference ranges are not reported, since discordance with absolute values may lead to misinterpretation of CBC data. Current Interpretive Data was last revised on 2017. Testing performed by: [facility], [address] [place] [phone] Monocyte pct 5.5 % [facility] Comment: Interpretive Data Percent cell count reference ranges are not reported, since discordance with absolute values may lead to misinterpretation of CBC data. Current Interpretive Data was last revised on 2017. Testing performed by: [facility], [address] [place] [phone] Eosinophil pct 2.1 % [facility] Comment: Interpretive Data Percent cell count reference ranges are not reported, since discordance with absolute values may lead to misinterpretation of CBC data. Current Interpretive Data was last revised on 2017. Testing performed by: [facility], [address] [place] [address] Basophil pct 0.6 % [facility] Comment: Interpretive Data Percent cell count reference ranges are not reported, since discordance with absolute values may lead to misinterpretation of CBC data. Current Interpretive Data was last revised on 2017. Testing performed by: [facility], [address] [place] [address] Blood 01/03/2025 2:08 PM CDT 01/03/2025 2:20 PM CDT us Vito De León MD LAB BLOOD ORDERABLES Final R esult [facility] [place] [address] * CBC with auto differential (01/03/2025 2:08 PM CDT) WBC 8.08 3.80 - 9.90 K/cumm Comment:Testing performed by : [facility], [address] [place] [address] Hgb 14.4 13.0 - 17.5 g/dL [facility] Comment:Testing performed by : [facility], [address] [place] [address] Hct 40.7 38.9 - 50.3 % [facility] Comment:Testing performed by : [facility], [address] [place] [address] Plt 169 150 - 400 K/cumm [facility] Comment:Testing performed by : [facility], [address] [place] [address] MPV 7.9 6.8 - 10.4 fL [facility] Comment:Testing performed by : [facility], [address] [place] [address] RBC 4.36 4.30 - 5.80 M/cumm [facility] Comment:Testing performed by : [facility], [address] [place] [address] MCV 93.4 81.3 - 96.4 fL [facility] Comment:Testing performed by : [facility], [address] [place], [place] [phone] MCH 32.9 27.1 - 33.3 pg [facility] Comment:Testing performed by : [facility], [address] [place] [address] MCHC 35.3 32.3 - 35.7 g/dL [facility] Comment:Testing performed by : [facility], [address] [place] [address] RDW CV 14.8 11.1 - 14.9 % [facility] Comment:Testing performed by : [facility], [address] [place] [address] NRBC abs 0.00 0.00 - 0.01 K/cumm [facility] Comment:Testing performed by : [facility], [address] [place] [address] Blood 01/03/2025 2:08 PM CDT 01/03/2025 2:20 PM CDT us Vito De León MD LAB BLOOD ORDERABLES Final R esult [facility] [place] [address] * (ABNORMAL) Comprehensive metabolic panel (01/03/2025 2:08 PM CDT) Sodium 141 135 - 145 mmol/L Potassium, pl 4.1 3.3 - 4.9 mmol/L [facility] Chloride 108 97 - 110 mmol/L [facility] CO2 24 22 - 32 mmol/L [facility] Anion gap 9 2 - 15 mmol/L [facility] BUN 14 6 - 25 mg/dL [facility] Creatinine 0.92 0.80 - 1.30 mg/dL [facility] Glucose 124 70 - 199 mg/dL [facility] Comment: Interpretive Data Fasting glucose >/= 126 mg/dl is diagnostic for diabetes. Fasting is defined as no caloric intake for at least 8 hours. Fasting glucose between 100 mg/dl to 125 mg/dl is diagnostic of prediabetes. In a patient with classic symptoms of hyperglycemia or hyperglycemic crisis, a random glucose >/= 200 mg/dl is diagnostic for diabetes. In the absence of unequivocal hyperglycemia, results should be confirmed by repeat testing. The classification and Diagnosis of Diabetes Diabetes Care 2021; 46: S19-S40. Current interpretive data was last revised 2022. Calcium 9.4 8.5 - 10.3 mg/dL [facility] Bilirubin, total 0.5 0.1 - 1.2 mg/dL [facility] Protein, pl 6.4(L) 6.5 - 8.5 g/dL [facility] Albumin 4.2 3.5 - 5.0 g/dL [facility] Alk phos 58 40 - 130 Units/L [facility] ALT 15 7 - 55 Units/L [facility] AST 19 10 - 50 Units/L [facility] Blood 01/03/2025 2:08 PM CDT 01/03/2025 2:23 PM CDT us Vito De León MD LAB BLOOD ORDERABLES Final R esult [facility] Department [place] [address] from Last 3 Months Insurance MEDICARE [facility] INSURANCE [employer] SENIOR SUPPLEMENT MEDICARE [facility] INSURANCE MEDICARE Care Teams Microarray Analyst Relationship Specialty Start Date End Date Nelson Munoz MD [address] [place] [address] PCP - General 07/21/16
--- OUTSIDE RECORDS SUMMARY | 2025-03-22 14:43 | XMS_ITS ---
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 Past Treatment and Therapy Plans No past plan information found. Lifetime Dose Tracking * Chemical Lifetime Dose Automatic Entry Manual Entr y Dose Length Product 17.222 mGy-cm 17.222 mGy-cm 0 mGy- cm
--- OUTSIDE RECORDS SUMMARY | 2025-03-22 14:43 | XMS_ITS | Patient Health Record ---
Author Organization [facility] Address [address] [place], [place] [id number] Care Team Providers Care Thermospray Operator Name Role Phone OMAR GONZALEZ Unavailable [phone] Nelson Munoz Unavailable Unavailable DEBBY FORBES Unavailable [phone] Allergies Allergen (clinical drug ingredient) Drug/Non Drug Allergy documented on EMR Reaction Allergy Type Onset Date Status lansoprazole Prevacid Unknown Drug Allergy Acti ve Latex Latex Unknown Allergy Active Reason For Referral No Information Medications Medication SIG (Take, Route, Frequency, Duration) Notes Start Date End Date Status Simponi Aria Active Centrum Silver 50+Men Active Methotrexate Active Co Q 10 Active Symbicort Active metFORMIN HCl 500 MG Tablet 1 tablet wit h a meal Orally Once a day Active Myrbetriq Active Amitriptyline HCl 50 MG Tablet 1 tablet at bedtime Orally Once a day Active NovoLOG Active Ozempic Active Albuterol Sulfate Ac tive Lisinopril Active Eliquis Active Basaglar Tempo Pen A ctive Celecoxib Active Metoprolol & Diet Manage Prod Active predniSONE Active Gabapentin Active Folic Acid Active Vitamin D3 [id number] UNIT/GM Liquid as directed Active Lovastatin Active Immunizations Vaccine Route Administration Date Status Comme nts Influenza (split), 3 yrs and above Unknown 03/17/2013 A dministered Influenza, high dose seasonal Unknown 01/15/2012 Admini stered Influenza, high dose seasonal Unknown 01/30/2019 Admini stered Influenza, high-dose seasona l, quadrivalent, preservative free >65 yrs Unknown 01/13/2020 Administered Influenza, quadrivalent, spl it virus Unknown 02/27/2014 Administered Influenza, quadrivalent, spl it virus Unknown 02/20/2016 Administered Influenza, quadrivalent, spl it, preservative free, 3 years or older Unknown 02/26/2017 Administered Influenza, quadrivalent, spl it, preservative free, 3 years or older Unknown 02/24/2018 Administered Influenza, seasonal, injecta ble, preservative free, 6-35 months Unknown 12/25/2014 Administered Pneumococcal conjugate PCV 13 Unknown 10/23/2014 Admini stered Tdap Unknown 08/27/2016 Administered Social History Section Notes: Smokes More than 2+ day No H istory of Alcohol/Beer Smokes More than 2+ day No H istory of Alcohol/Beer Smokes More than 2+ day No H istory of Alcohol/Beer Smokes More than 2+ day No H istory of Alcohol/Beer Smokes More than 2+ day No H istory of Alcohol/Beer Smokes More than 2+ day No H istory of Alcohol/Beer Vital Signs Height-cm 182.88 cm 03/15/2025 Weight-kg 90.72 kg 03/15/2025 Height 72 in 03/15/2025 Weight 200 lbs 03/15/2025 BMI 27.12 kg/m2 03/15/2025 Encounters Encounter Location Date Provider Diagnosis [address] [id number] 10/12/2024 DEBBY FORBES Acquired keratosis [keratoderma] palmaris et plantaris L85.1 ; 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 ; Other hammer toe(s) (acquired), left foot M20.42 ; Atherosclerosis of teller arteries of extremities with intermittent claudication, bilateral legs I70.213 and Other hereditary and idiopathic neuropathies G60.[address] [id number] 11/09/2024 DEBBY FORBES Acquired keratosis [keratoderma] palmaris et plantaris L85.1 ; 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 ; Other hammer toe(s) (acquired), left foot M20.42 ; Atherosclerosis of teller arteries of extremities with intermittent claudication, bilateral legs I70.213 ; Other hereditary and idiopathic neuropathies G60.8 and Tinea unguium B35.[address] [id number] 01/11/2025 DEBBY FORBES Other hammer toe(s) (acquired), left foot M20.42 ; Tinea unguium B35.1 ; Atherosclerosis of teller arteries of extremities with intermittent claudication, bilateral legs I70.213 ; 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 ; Acquired keratosis [keratoderma] palmaris et plantaris L85.1 and Other hereditary and idiopathic neuropathies G60.8 [facility] [address] [place], [place] [id number] 03/15/2025 DEBBY FORBES [facility] [address] [place], [place] [id number] 07/27/2024 OMAR GONZALEZ Tinea unguium B35.1 ; Acquired keratosis [keratoderma] palmaris et plantaris L85.1 ; Atherosclerosis of teller arteries of extremities with intermittent claudication, bilateral legs I70.213 ; Pain in right foot M79.671 ; Pain in left foot M79.672 ; 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 and Other hammer toe(s) (acquired), left foot M20.[address] [id number] 08/10/2024 OMAR GONZALEZ Acquired keratosis [keratoderma] palmaris et plantaris L85.1 ; 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 and Other hammer toe(s) (acquired), left foot M20.42 Assessments Encounter Date Diagnosis (ICD Code) Assessment Notes Treatment Notes Treatment Clinical Notes Section Notes 07/27/2024 Tinea unguium (ICD-10 - B35.1) Nails 1-5 Bilateral were debrided extensively with nail nippers and emery board, reducing length and girth to pink healthy tissue with any subungual debris and necrotic tissue removed 07/27/2024 Acquired keratosis [keratoderma] palmaris et plantaris (ICD-10 - L85.1) A total of 1 corns or calluses, as described in the note above, were cut and pared utilizing a #15 blade 08/10/2024 Acquired keratosis [keratoderma] palmaris et plantaris (ICD-10 - L85.1) A total of 1 corns or calluses, as described in the note above, were cut and pared utilizing a #15 blade 08/10/2024 Non-pressure chronic ulcer of other part of left foot limited to breakdown of skin (ICD-10 - L97.521) Ulcer Resolved: The nonviable tissue from the uler site was debrided down to normal appearing tissue. Advised patient to monitor this area for recurrence. Patient may discontinue local wound care. Ulcer Plan of Care: The treatment goals are closure of the ulceration within an appropriate time frame. This will require regular debridements every 2 weeks until skin closure has been met. The patient will come in sooner than 2 weeks if the wound develops any signs of infection or deteriorates. The plan of care will be reviewed every month. If there is no change in the size of the wound, we will re evaluate debridement schedule, topical medications being used, as well as modify techniques for offloading the wound. [employer] Grade 0: Pre-ulcerative Lesion, healed ulcers, presence of bone deformity Grade 1: Superficial Ulcer without subcutaneous tissue involvement Grade 2: Penetration through the subcutaneous tissue (may expose bone, tendon, ligament or joint capsule) Grade 3: Osteitis, abscess or osteomyelitis Grade 4: Gangrene of the foot. Based on clinical findings, the patient has the following grade ulceration: 0 10/12/2024 Acquired keratosis [keratoderma] palmaris et plantaris [...] Patient may discontinue local wound care. 11/09/2024 Acquired keratosis [keratoderma] palmaris et plantaris [...] Patient may discontinue local wound care. 01/11/2025 Tinea unguium (ICD-10 - B35.1) Aseptic debridement of elongated thickened nails x 10 using sterile nippers, nails were debrided in length and thickness by 30% utilizing a nail nipper without incident. 01/11/2025 Other hammer toe(s) (acquired), left foot (ICD-10 - M20.42) Hammertoe Deformity: Discussed various treatments for hammer toes with the patient . Discussed conservative care consisting of padding, wider shoes, anti-inflammatori es, and orthotics. 01/11/2025 Atherosclerosis of teller arteries of extremities with intermittent claudication, bilateral legs (ICD-10 - I70.213) Patient educated on risks and aggravating factors of PVD, including conservative treatment options such as a diet and exercise regimen to aid in slowing progression of vascular disease. Check and protect LE bilateral daily. Call if any changes or concerns. 11/09/2024 Other hammer toe(s) (acquired), left foot [...] He will consider wearing better shoes. 10/12/2024 Other hammer toe(s) (acquired), left foot [...] crocs. He will consider wearing better shoes. 08/10/2024 Other hammer toe(s) (acquired), left foot (ICD-10 - M20.42) Hammertoe Deformity: Discussed various treatments for hammer toes with the patient . Discussed conservative care consisting of padding, wider shoes, anti-inflammatori es, and orthotics. Discussed surgical treatment options and answered all questions about the intra-operative and post-operative treatment course. Padding: Application of accomodative padding to offload pressure from area. 07/27/2024 Atherosclerosis of teller arteries of extremities with intermittent claudication, bilateral legs (ICD-10 - I70.213) 07/27/2024 Pain in right foot (ICD-10 - M79.671) 10/12/2024 Atherosclerosis of teller arteries of extremities with intermittent claudication, bilateral legs (ICD-10 - I70.213) Check and protect LE bilateral daily. Call if any changes or concerns. 11/09/2024 Atherosclerosis of teller arteries of extremities with intermittent claudication, bilateral [...] may discontinue local wound care. 11/09/2024 Other hereditary and idiopathic neuropathies (ICD-10 - G60.8) Discussed conservative care consisting of padding, wider shoes, anti-inflammatori es, and orthotics. Discussed medical options and answered all questions about neuropathy. 01/11/2025 Acquired keratosis [keratoderma] palmaris et plantaris (ICD-10 - L85.1) A total of 3 corns or calluses, as described in the note above, were cut and pared utilizing a #15 blade 07/27/2024 Pain in left foot (ICD-10 - M79.672) 10/12/2024 Other hereditary and idiopathic neuropathies (ICD-10 - G60.8) Discussed conservative care consisting of padding, wider shoes, anti-inflammatori es, and orthotics. Discussed medical options and answered all questions about neuropathy. 07/27/2024 Non-pressure chronic ulcer of other part of left foot limited to breakdown of skin (ICD-10 - L97.521) Ulcer Debridement: Using a 15 blade, the ulcer was sharply debrided down to bleeding tissue. The nonviable tissue was sharply debrided down to the layer of subcutaneous tissue. A dry sterile dressing was applied. Ulcer Plan of Care: The treatment goals are closure of the ulceration within an appropriate time frame. This will require regular debridements every 2 weeks until skin closure has been met. The patient will come in sooner than 2 weeks if the wound develops any signs of infection or deteriorates. The plan of care will be reviewed every month. If there is no change in the size of the wound, we will re evaluate debridement schedule, topical medications being used, as well as modify techniques for offloading the wound. HARTMANN GRADING SYSTEM Grade 0: Pre-ulcerative Lesion, healed ulcers, presence of bone deformity Grade 1: Superficial Ulcer without subcutaneous tissue involvement Grade 2: Penetration through the subcutaneous tissue (may expose bone, tendon, ligament or joint capsule) Grade 3: Osteitis, abscess or osteomyelitis Grade 4: Gangrene of the foot. Based on clinical findings, the patient has the following grade ulceration: 1 Infection Protocol: Patient instructed to observe foot for signs and symptoms of infection, including but not limited to: increased redness and warmth to the area, increased drainage from the area, foul odor, and/or presence of fever/chills/naus ea/vomiting. If patient experiences any of the above they are to call the office immediately, if someone is not present in the office then proceed to the nearest ER. 11/09/2024 Tinea unguium (ICD-10 - B35.1) Aseptic debridement of elongated thickened nails x 10 using sterile nippers, nails were debrided in length and thickness by 30% utilizing a nail nipper without incident. 01/11/2025 Other hereditary and idiopathic neuropathies (ICD-10 - G60.8) Discussed conservative care consisting of padding, wider shoes, anti-inflammatori es, and orthotics. Discussed medical options and answered all questions about neuropathy. 07/27/2024 Other hammer toe(s) (acquired), left foot (ICD-10 - M20.42) Hammertoe Deformity: Discussed various treatments for hammer toes with the patient . Discussed conservative care consisting of padding, wider shoes, anti-inflammatori es, and orthotics. Discussed surgical treatment options and answered all questions about the intra-operative and post-operative treatment course. Padding: Application of accomodative padding to offload pressure from area. Plan Of Treatment Next Appt Details Provider Name:DEBBY PADRON, 05/24/2025 02:40:00 PM, [address] [place] [address], [phone], Insurance Providers Payer Name Payer Address Payer Phone Subscriber Number Group Number Insured Name Patient Relationship to Insured Coverage Start Date Coverage End Date Medicare Part B [place] [address] [place] [address] [id number] DONALD DRAKE Self - patient is the insured [facility] [address] [place] [phone] [id number] DONALD DRAKE Self - patient is the insured Medical (General) History Medical History History ICD Code acid reflux neuropathy Pneumonia anemia Asthma/Bronchitis Cancer Open Sores Respiratory disease Arthritis Bladder infections rheumatoid arthritis Sleep apnea Back Trouble Diabetic heart/disease/failure high blood pressure Lung Disease
--- OUTSIDE RECORDS SUMMARY | 2025-03-22 14:43 | XMS_ITS | Clinical Summary ---
Author Organization [facility] Address [address] [place] [address] Care Team Providers Care Assembler Installer General Name Role Phone Unavailable Primary Care Provider Unavailabl e Social History Tobacco Use Types Packs/Day Years Used Date Smoking Tobacco: Former Sex and Gender Information Value Date Recorded Sex Assigned at Not on file Legal Sex Male 10:16 PM CDT Gender Identity Not on file Sexual Orientation Not on file Last Filed Vital Signs Vital Sign Reading Time Taken Comments Blood Pressure 114/76 06/20/2014 4:09 PM [employer] Pulse 90 06/20/2014 4:08 PM [employer] Temperature - - Respiratory Rate 16 06/20/2014 4:08 PM [employer] Oxygen Saturation - - Inhaled Oxygen Concentration - - Weight 117.9 kg (260 lb) 06/20/2014 4:08 PM [employer] Height 182.9 cm (6') 06/20/2014 4:08 PM [employer] Body Mass Index 35.26 06/20/2014 4:08 PM [employer] Plan of Treatment Health Maintenance Due Date Last Done Comments Colorectal Cancer Screening Colonoscopy (10 Years) 1955 Hepatitis C 01/30/1972 DTaP, Tdap and Td Vaccines ( 1 - Tdap) 1973 Pneumococcal Vaccine: 50+ Ye ars (1 of 1 - PCV) 01/30/2004 Zoster Vaccines (1 of 2) 01/30/2004 Annual Medicare Wellness Visit 2019 COVID-19 Vaccine (1 - 2024-2 6 season) 2025 Influenza Adult (#1) 2025 RSV Immunization or 60+ Years (1 - 1-dose 75+ series) 2029 Hepatitis A Vaccines Aged Out No long er eligible based on patient's age to complete this topic Meningococcal B Vaccine Aged Out No l onger eligible based on patient's age to complete this topic Meningococcal Vaccine Aged Out No erich carolina eligible based on patient's age to complete this topic RSV Immunizations Under 20 Months Aged Out No longer eligible based on patient's age to complete this topic Insurance [facility]
== END 2025-03-22 14:16 | disposition home or self-care (01) ==
PROVIDERS: PCP Internal Medicine; Visit Provider Internal Medicine
DX: R41.3 Other amnesia (principal); R91.8 Other nonspecific abnormal finding of lung field
CPT/HCPCS: 70551; 71250

== ENCOUNTER 2025-03-30 12:35 | Outpatient (CLI) | payer MEDICARE, SELFPAY ==
--- OUTSIDE RECORDS SUMMARY | 2024-07-13 09:20 | XMS_ITS ---
Author Organization [facility] Address [address] [place], [place] [id number] Care Team Providers Care Cardiology Teacher Name Role Phone OMAR GONZALEZ Unavailable [phone] Nelson Munoz Unavailable Unavailable REASON FOR VISIT toe ulcer, hammer toe Encounters Encounter Location Date Provider Diagnosis [address] [id number] 07/13/2024 OMAR GONZALEZ Plan Of Treatment Next Appt Details Provider Name:DEBBY PADRON, 05/24/2025 02:40:00 PM, [address] [place] [address], [id number], Progress Notes * NOELLE BENTONSILVIOOB:1955 (70 yo M)Acc No.[id number]:07/13/2024 Patient: DONALD ONOFRE Provider: Honorio Gonzalez DPM :1955 A ge:69 Y S ex:Male Date:07/13/2024 Address:[address] [facility] Subjective: * Chief Complaints: * T oe ulcer, hammer toe Billing Information: * Procedure Codes: * Electronic signature of OMAR GONZALEZ DPM on 03/30/2025 at 12:40 PM PLANT NURSERY WORKER Sign off status: Pending * Provider: Honorio Gonzalez DPM Date: 0 07/13/2024 Generated for Printi ng/Faxing/eTransmitting on: 1 05/30/2024 12:40 PM PLANT NURSERY WORKER
--- OUTSIDE RECORDS SUMMARY | 2024-08-10 05:20 | XMS_ITS ---
Author Organization [facility] Address [address] [place], [place] [address] Care Team Providers Care Care Manager Cna Name Role Phone OMAR GONZALEZ Unavailable [phone] Nelson Munoz Unavailable Unavailable DEBBY FORBES Unavailable [phone] REASON FOR VISIT *Wound check Encounters Encounter Location Date Provider Diagnosis [address] [id number] 08/10/2024 DEBBY FORBES Plan Of Treatment Next Appt Details Provider Name:DEBBY PADRON, 05/24/2025 02:40:00 PM, [address] [place] [address], [id number], Progress Notes * SHAYLA DRAKEOB:1955 (70 yo M)Acc No.[id number]:08/10/2024 Patient: DONALD ONOFRE Provider: Vic FORBES :1955 A ge:69 Y S ex:Male Date:08/10/2024 Address:[address] [facility] Subjective: * Chief Complaints: * * Wound check Billing Information: * Procedure Codes: * Electronic signature of KENYA FORBES DPM on 03/30/2025 at 12:41 PM REAM CUTTER Sign off status: Pending * Provider: Vic FORBES Date: 0 08/10/2024 Generated for Printi ng/Fajoyceg/eTransmitting on: 1 05/30/2024 12:41 PM REAM CUTTER
--- OUTSIDE RECORDS SUMMARY | 2024-10-12 04:40 | XMS_ITS ---
Author Organization [facility] Address [address] [place], [place] [address] Care Team Providers Care Warp Knitter Helper Name Role Phone OMAR GONZALEZ Unavailable [phone] Nelson Munoz Unavailable Unavailable DEBBY FORBES Unavailable [phone] Allergies Allergen (clinical drug ingredient) Drug/Non Drug Allergy documented on EMR Reaction Allergy Type Onset Date Status lansoprazole Prevacid Unknown Drug Allergy Acti ve Latex Latex Unknown Allergy Active REASON FOR VISIT *Wound check Medications Medication SIG (Take, Route, Frequency, Duration) Notes Start Date End Date Status Centrum Silver 50+Men Active Co Q 10 Active Amitriptyline HCl 50 MG Tablet 1 tablet at bedtime Orally Once a day Active Celecoxib Active Vitamin D3 2087213 UNIT/GM Liquid as directed Active Lisinopril Active Basaglar Tempo Pen A ctive NovoLOG Active metFORMIN HCl 500 MG Tablet 1 tablet wit h a meal Orally Once a day Active Gabapentin Active Simponi Aria Active Methotrexate Active Metoprolol & Diet Manage Prod Active Folic Acid Active Lovastatin Active Ozempic Active Albuterol Sulfate Ac tive Eliquis Active Symbicort Active Myrbetriq Active predniSONE Active Social History Section Notes: Smokes More than 2+ day No H istory of Alcohol/Beer Vital Signs Height 72 in 10/12/2024 Weight 200 lbs 10/12/2024 BMI 27.12 kg/m2 10/12/2024 Height-cm 182.88 cm 10/12/2024 Weight-kg 90.72 kg 10/12/2024 Encounters Encounter Location Date Provider Diagnosis [address] [id number] 10/12/2024 DEBBY FORBES Acquired keratosis [keratoderma] palmaris et plantaris L85.1 ; 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 ; Other hammer toe(s) (acquired), left foot M20.42 ; Atherosclerosis of [place] arteries of extremities with intermittent claudication, bilateral legs I70.213 and Other hereditary and idiopathic neuropathies G60.8 Assessments Encounter Date Diagnosis (ICD Code) Assessment Notes Treatment Notes Treatment Clinical Notes Section Notes 10/12/2024 Acquired keratosis [keratoderma] palmaris et plantaris (ICD-10 - L85.1) A total of 3 corns or calluses, as described in the note above, were cut and pared utilizing a #15 blade 10/12/2024 Non-pressure chronic ulcer of other part of left foot limited to breakdown of skin (ICD-10 - L97.521) Ulcer Resolved: The hyperkeratotic tissue from the ulcer site was debrided down to normal appearing tissue. Advised patient to monitor this area for recurrence. Patient may discontinue local wound care. 10/12/2024 Other hammer toe(s) (acquired), left foot (ICD-10 - M20.42) Hammertoe Deformity: Discussed various treatments for hammer toes with the patient . Discussed conservative care consisting of padding, wider shoes, anti-inflammatori es, and orthotics. Discussed surgical treatment options and answered all questions about the intra-operative and post-operative treatment course. Padding: Previous application of accomodative padding to offload pressure from area caused his toe to turn purple. He stopped weating any padding. We discussed using a size medium toe sleeve as needed. Advised on supportive shoes and inserts with met pads but he only wears crocs. He will consider wearing better shoes. 10/12/2024 Atherosclerosis of [place] arteries of extremities with intermittent claudication, bilateral legs (ICD-10 - I70.213) Check and protect LE bilateral daily. Call if any changes or concerns. 10/12/2024 Other hereditary and idiopathic neuropathies (ICD-10 - G60.8) Discussed conservative care consisting of padding, wider shoes, anti-inflammatori es, and orthotics. Discussed medical options and answered all questions about neuropathy. Plan Of Treatment Treatment Notes Assessment Notes Acquired keratosis [keratode rma] palmaris et plantaris A total of 3 corns or calluses, as described in the note above, were cut and pared utilizing a #15 blade Non-pressure chronic ulcer o f other part of left foot limited to breakdown of skin Ulcer Resolved: The hyperkeratotic tissue from the ulcer site was debrided down to normal appearing tissue. Advised patient to monitor this area for recurrence. Patient may discontinue local wound care. Other hammer toe(s) (acquired), left jocelyn t Hammertoe Deformity: Discussed various treatments for hammer toes with the patient . Discussed conservative care consisting of padding, wider shoes, anti-inflammatories, and orthotics. Discussed surgical treatment options and answered all questions about the intra-operative and post-operative treatment course. Padding: Previous application of accomodative padding to offload pressure from area caused his toe to turn purple. He stopped weating any padding. We discussed using a size medium toe sleeve as needed. Advised on supportive shoes and inserts with met pads but he only wears crocs. He will consider wearing better shoes. Atherosclerosis of [place] ar teries of extremities with intermittent claudication, bilateral legs Check and protect LE bilateral daily. Ca ll if any changes or concerns. Other hereditary and idiopat hic neuropathies Discussed conservative care consisting o f padding, wider shoes, anti-inflammatories, and orthotics. Discussed medical options and answered all questions about neuropathy. Next Appt Details Follow Up: 2 Months,General Care, Reason: Provider Name:DEBBY Saul PADRON, 05/24/2025 02:40:00 PM, [address] [place] [address], [id number], History and Physical Notes * HPI (History of Present Illness) Category Sub-Category Detail Notes Category Not es HPI Follow Up Visit Patient presents for follow-up visit for a wound on the left 2nd digit. The wound is healed, and the patient has no concerns. Patient states that he has a callus on the right heel that he would like looked at. , MA: [facility] Examination Category Sub-Category Detail Notes Category Not es Dermatologic Skin findings: Skin is thin, at rophic and lacking pedal hair Nail pathology: Nails 1, 2, 3, 4, an d 5 bilateral are elongated, thick, discolored, and dystrophic with subungual debris. They are painful to palpation Hypertrophic / hyperkeratotic lesion: di stal aspect of the left 2nd digit, and right and left lateral plantar heels with crevices. no erythema. mild pain on palpation Ulcer: There is no evidence of ulceration noted at this time Neurologic Gross sensation Absent to sharp/dull to d igits Vascular Dorsalis pedis pulse: 1/4 bilateral Edema: No edema bilateral Capillary refill: greater than 3 secon ds Posterior tibial pulse: 0/4 bilateral Physical Examination General appearance: Alert, pleasant, well-nourished and in no acute distress Musculoskeletal Muscle Strength Muscle strength is 5/5 in regards to dorsiflexion, plantarflexion, inversion, and eversion in bilateral lower extremities Hammertoes Dorsally contracted digits 2-5 bilateral. The deformity is rigid and nonreducible Progress Notes * NOELLE BENTONSLIVIOOB:1955 (70 yo M)Acc No.[id number]:10/12/2024 Patient: DONALD ONOFRE Provider: Vic FORBES :1955 A ge:69 Y S ex:Male Date:10/12/2024 Address:[address] [place] [address] Subjective: * Chief Complaints: * * Wound check * HPI: H PI: Follow Up Visit P alex presents for follow-up visit for a wound on the left 2nd digit. The wound is healed, and the patient has no concerns. Patient states that he has a callus on the right heel that he would like looked at. , MA: [facility]. * ROS: G eneral / Constitutional: Patient denies c hills, fever, weight loss. ? M usculoskeletal: Patient denies w eakness, broken foot bone. P atient complains of h ammertoes. P eripheral Vascular: Patient complains of u lceration of feet. S kin: Patient complains of f ungal nails, calluses and corns, ulcerations. N eurologic: Patient complains of n umbness. * Medical History: Acid reflux Neuropathy Pneumonia Anemia Asthma/Bronchitis Cancer Open Sores Respiratory disease Arthritis Bladder infections Rheumatoid arthritis Sleep apnea Back Trouble Diabetic Heart/disease/failure High blood pressure Lung Disease Medical History Verified * Family History: F ather: , Blood Clots. M other: , rheumatoid arthritis, heart disease, High Blood Pressure, Diabetic. F amily History Verified.. * Social History: Social History Verified. S mokes More than 2+ day No History of Alcohol/Beer. * Medications: T akingCelecoxib predniSONE Albuterol Sulfate Eliquis Ozempic Symbicort Myrbetriq Simponi Aria Methotrexate Folic Acid Lovastatin Metoprolol & Diet Manage Prod Gabapentin Lisinopril Basaglar Tempo Pen NovoLOG metFORMIN HCl 500 MG Tablet 1 tablet with a meal Orally Once a day Amitriptyline HCl 50 MG Tablet 1 tablet at bedtime Orally Once a day Centrum Silver 50+Men Co Q 10 Vitamin D3 8333036 UNIT/GM Liquid as directed Medication List reviewed and reconciled with the patientTaking Celecoxib Taking predniSONE Taking Albuterol Sulfate Taking Eliquis Taking Ozempic Taking Symbicort Taking Myrbetriq Taking Simponi Aria Taking Methotrexate Taking Folic Acid Taking Lovastatin Taking Metoprolol & Diet Manage Prod Taking Gabapentin Taking Lisinopril Taking Basaglar Tempo Pen Taking NovoLOG Taking metFORMIN HCl 500 MG Tablet 1 tablet with a meal Orally Once a day Taking Amitriptyline HCl 50 MG Tablet 1 tablet at bedtime Orally Once a day Taking Centrum Silver 50+Men Taking Co Q 10 Taking Vitamin D3 2629486 UNIT/GM Liquid as directed Medication List reviewed and reconciled with the patient * Allergies: P revacidLatexyesAllergies Verified. Objective: * Vitals: S hoe Size: 10, Wt:200lbs, Wt-k.72 kg, Ht: 72 in, Ht-cm: 182.88 cm, BMI:27.12Index, Body Surface Area: 2.14. * Examination: P hysical Examination: General appearance: A lert, pleasant, well-nourished and in no acute distress. D ermatologic: Skin findings: S kin is thin, atrophic and lacking pedal hair. Hypertrophic / hyperkeratotic lesion: d istal aspect of the left 2nd digit, and right and left lateral plantar heels with crevices. no erythema. mild pain on palpation. Nail pathology: N ails 1, 2, 3, 4, and 5 bilateral are elongated, thick, discolored, and dystrophic with subungual debris. They are painful to palpation. Ulcer: T here is no evidence of ulceration noted at this time. V ascular: Dorsalis pedis pulse: 1 /4 b ilateral. Posterior tibial pulse: 0 /4 bilateral. Capillary refill: g reater than 3 seconds. Edema: N o edema bilateral. N eurologic: Gross sensation A bsent to sharp/dull to digits. M usculoskeletal: Muscle Strength M uscle strength is 5/5 in regards to dorsiflexion, plantarflexion, inversion, and eversion in bilateral lower extremities. Hammertoes D orsally contracted digits 2-5 bilateral. The deformity is rigid and nonreducible. Assessment: * Assessment: 1. 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 A cquired keratosis [keratoderma] palmaris et plantaris - L85.1? 3. O ther hammer toe(s) (acquired), left foot - M20.42 4 . A therosclerosis of [place] arteries of extremities with intermittent claudication, bilateral legs - I70.213 5 . O ther hereditary and idiopathic neuropathies - G60.8 ? Plan: * Treatment: 2. 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 O ther hammer toe(s) (acquired), left foot Notes: Hammertoe Deformity: Discussed various treatments for hammer toes with the patient . Discussed conservative care consisting of padding, wider shoes, anti-inflammatories, and orthotics. Discussed surgical treatment options and answered all questions about the intra-operative and post-operative treatment course. P adding: Previous application of accomodative padding to offload pressure from area caused his toe to turn purple. He stopped weating any padding. We discussed using a size medium toe sleeve as needed. Advised on supportive shoes and inserts with met pads but he only wears crocs. He will consider wearing better shoes. 4. A therosclerosis of [place] arteries of extremities with intermittent claudication, bilateral legs Notes: Check and protect LE bilateral daily. Call if any changes or concerns. 5. O ther hereditary and idiopathic neuropathies Notes: D iscussed conservative care consisting of padding, wider shoes, anti-inflammatories, and orthotics. Discussed medical options and answered all questions about neuropathy. * Immunizations: Immunization record has been reviewed and updated. * Follow Up: 2 Months,General Care Billing Information: * Visit Code: 46042 Office Visit, Est Pt., Level 3. * Procedure Codes: * Electronic signature of KENYA FORBES DPM on 03/30/2025 at 12:41 PM LEARNING SUPPORT ASSISTANT Sign off status: Pending * Provider: Vic FORBES Date: 0 10/12/2024 Generated for Chris alfaro/Nae/Sarahitting on: 1 05/30/2024 12:41 PM LEARNING SUPPORT ASSISTANT
--- OUTSIDE RECORDS SUMMARY | 2024-10-26 05:10 | XMS_ITS ---
Author Organization [facility] Address [address] [place], [place] [address] Care Team Providers Care Transition Rn Name Role Phone OMAR GNOZALEZ Unavailable [phone] Nelson Munoz Unavailable Unavailable DEBBY FORBES Unavailable [phone] REASON FOR VISIT *General care Medications Medication SIG (Take, Route, Frequency, Duration) Notes Start Date End Date Status Celecoxib Active Vitamin D3 1837904 UNIT/GM Liquid as directed Active Eliquis Active [...] Active Encounters Encounter Location Date Provider Diagnosis [address] [id number] 10/26/2024 DEBBY FORBES Acquired keratosis [keratoderma] palmaris et plantaris L85.1 ; 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 10/26/2024 Atherosclerosis of [place] arteries of extremities with intermittent claudication, bilateral [...] will consider wearing better shoes. Atherosclerosis of [place] ar teries of extremities with intermittent claudication, [...] Reason: Provider Name:DEBBY PADRON, 05/24/2025 02:40:00 PM, [address] [place] [address], [id number], History and Physical Notes * Examination Category [...] Notes * LAURY DRAKE:1955 (70 yo M)Acc No.[id number]:10/26/2024 Patient: DONALD ONOFRE Provider: Vic FORBES :1955 A ge:69 Y S ex:Male Date:10/26/2024 Address:[address] [place] [address], [place] [address] Subjective: * Chief Complaints: * * General [...] Silver 50+Men Co Q 10 Vitamin D3 1770735 UNIT/GM Liquid as directed Taking Celecoxib Taking [...] Taking Co Q 10 Taking Vitamin D3 2464548 UNIT/GM Liquid as directed Objective: * Examination: [...] - M20.42 4 . A therosclerosis of [place] arteries of extremities with intermittent claudication, bilateral [...] wearing better shoes. 4. A therosclerosis of [place] arteries of extremities with intermittent claudication, bilateral [...] FORBES DPM on 03/30/2025 at 12:41 PM CUSTOMER ADVISOR SPECIALIST Sign off status: Pending * Provider: Vic FORBES Date: 0 10/26/2024 Generated for Chris alfaro/Nae/Karen on: 1 05/30/2024 12:41 PM CUSTOMER ADVISOR SPECIALIST
--- OUTSIDE RECORDS SUMMARY | 2024-11-09 09:30 | XMS_ITS ---
Author Organization [facility] Address [address] [place], [place] [id number] Care Team Providers Care Semiconductor Engineer Name Role Phone OMAR QUINTANA Unavailable [phone] Nelson Munoz Unavailable Unavailable DEBBY FORBES Unavailable [phone] Allergies Allergen (clinical drug ingredient) Drug/Non Drug Allergy documented on EMR Reaction Allergy Type Onset Date Status lansoprazole Prevacid Unknown Drug Allergy Acti ve Latex Latex Unknown Allergy Active REASON FOR VISIT *General care Medications Medication SIG (Take, Route, Frequency, Duration) Notes Start Date End Date Status Albuterol Sulfate Ac tive Celecoxib Active predniSONE Active Vitamin D3 2575783 UNIT/GM Liquid as directed Active Co Q 10 Active Basaglar Tempo Pen A ctive NovoLOG Active Centrum Silver 50+Men Active metFORMIN HCl 500 MG Tablet 1 tablet wit h a meal Orally Once a day Active Amitriptyline HCl 50 MG Tablet 1 tablet at bedtime Orally Once a day Active Gabapentin Active Lisinopril Active Metoprolol & Diet Manage Prod Active Folic Acid Active Lovastatin Active Ozempic Active Simponi Aria Active Methotrexate Active Symbicort Active Myrbetriq Active Eliquis Active Social History Section Notes: Smokes More than 2+ day No H istory of Alcohol/Beer Encounters Encounter Location Date Provider Diagnosis [address] [id number] 11/09/2024 DEBBY FORBES Acquired keratosis [keratoderma] palmaris et plantaris L85.1 ; 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 ; Other hammer toe(s) (acquired), left foot M20.42 ; Atherosclerosis of [place] arteries of extremities with intermittent claudication, bilateral legs I70.213 ; Other hereditary and idiopathic neuropathies G60.8 and Tinea unguium B35.1 Assessments Encounter Date Diagnosis (ICD Code) Assessment Notes Treatment Notes Treatment Clinical Notes Section Notes 11/09/2024 Acquired keratosis [keratoderma] palmaris et plantaris (ICD-10 - L85.1) A total of 3 corns or calluses, as described in the note above, were cut and pared utilizing a #15 blade 11/09/2024 Non-pressure chronic ulcer of other part of left foot limited to breakdown of skin (ICD-10 - L97.521) Ulcer Resolved: The hyperkeratotic tissue from the ulcer site was debrided down to normal appearing tissue. Advised patient to monitor this area for recurrence. Patient may discontinue local wound care. 11/09/2024 Other hammer toe(s) (acquired), left foot (ICD-10 - M20.42) Hammertoe Deformity: Discussed various treatments for hammer toes with the patient . Discussed conservative care consisting of padding, wider shoes, anti-inflammatori es, and orthotics. Padding: He stopped weating any padding at toe. We discussed using a size medium toe sleeve as needed. Advised on supportive shoes and inserts with met pads but he only wears crocs. He will consider wearing better shoes. 11/09/2024 Atherosclerosis of elim ir[place] arteries of extremities with intermittent claudication, bilateral legs (ICD-10 - I70.213) Patient educated on risks and aggravating factors of PVD, including conservative treatment options such as a diet and exercise regimen to aid in slowing progression of vascular disease. Check and protect LE bilateral daily. Call if any changes or concerns. 11/09/2024 Other hereditary and idiopathic neuropathies (ICD-10 - G60.8) Discussed conservative care consisting of padding, wider shoes, anti-inflammatori es, and orthotics. Discussed medical options and answered all questions about neuropathy. 11/09/2024 Tinea unguium (ICD-10 - B35.1) Aseptic debridement of elongated thickened nails x 10 using sterile nippers, nails were debrided in length and thickness by 30% utilizing a nail nipper without incident. Plan Of Treatment Treatment Notes Assessment Notes [...] of padding, wider shoes, anti-inflammatories, and orthotics. Padding: He stopped weating any padding at toe. We discussed using a size medium toe sleeve as needed. Advised on supportive shoes and inserts with met pads but he only wears crocs. He will consider wearing better shoes. Atherosclerosis of elim ir[place] ar teries of extremities with intermittent claudication, bilateral legs Patient educated on risks and aggravatin g factors of PVD, including conservative treatment options such as a diet and exercise regimen to aid in slowing progression of vascular disease. Check and protect LE bilateral daily. Call if any changes or concerns. Other hereditary and idiopat hic neuropathies Discussed conservative care consisting o f padding, wider shoes, anti-inflammatories, and orthotics. Discussed medical options and answered all questions about neuropathy. Tinea unguium Aseptic debridement of elongated thickened nails x 10 using sterile nippers, nails were debrided in length and thickness by 30% utilizing a nail nipper without incident. Next Appt Details Follow Up: 2 Months,General Care, Reason: Provider Name:DEBBY PADRON, 05/24/2025 02:40:00 PM, [address] [place] [address], [id number], History and Physical Notes * HPI (History of Present Illness) Category Sub-Category Detail Notes Category Not es HPI General care Patient presents to the office for diabetic foot care. Patient states that their nails are thickened, elongated and painful. Patient states that it is aggravated by shoe gear. Onset is gradual. Patient denies taking blood thinners. Date last seen by Dr. Munoz was 05/2024. Initials sea Examination Category Sub-Category Detail Notes Category Not [...] is rigid and nonreducible Progress Notes * SHAYLA DRAKEOB:1955 (70 yo M)Acc No.[id number]:11/09/2024 Patient: Onelia BOSCHELEAZAR DONALD Provider: Vic FORBES :1955 A ge:69 Y S ex:Male Date:11/09/2024 Address:[address] [place], [place] [phone] Subjective: * Chief Complaints: * * General care * HPI: H PI: General care P atient presents to the office for diabetic foot care. Patient states that their nails are thickened, elongated and painful. Patient states that it is aggravated by shoe gear. Onset is gradual. Patient denies taking blood thinners. Date last seen by Dr. Munoz was 05/2024. Initials sea. * ROS: G eneral / Constitutional: Patient denies c hills, fever, weight loss. ? M usculoskeletal: Patient denies w eakness, broken foot bone. P atient complains of h ammertoes. P eripheral Vascular: Patient complains of p revious ulceration of feet now calluses, , pain / cramping in legs after exertion, painful extremities. S kin: Patient complains of f ungal nails, calluses and corns, ulcerations. N eurologic: Patient complains of n umbness. * Medical History: Acid reflux Neuropathy Pneumonia Anemia Asthma/Bronchitis Cancer Open Sores Respiratory disease Arthritis Bladder infections Rheumatoid arthritis Sleep apnea Back Trouble Diabetic Heart/disease/failure High blood pressure Lung Disease Medical History Verified * Surgical History: No Surgical History documented. Surgical History verified. * Family History: F ather: , Blood [...] Silver 50+Men Co Q 10 Vitamin D3 2762337 UNIT/GM Liquid as directed Medication List reviewed [...] Taking Co Q 10 Taking Vitamin D3 1229737 UNIT/GM Liquid as directed Medication List reviewed and reconciled with the patient * Allergies: P revacidLatexyesAllergies Verified. Objective: * Examination: P hysical Examination: General [...] - M20.42 4 . A therosclerosis of elim ira arteries of extremities with intermittent claudication, bilateral legs - I70.213 5 . O ther hereditary and idiopathic neuropathies - G60.8 ?6. T inea unguium - B35.1 Plan: * Treatment: 2. A cquired keratosis [...] of padding, wider shoes, anti-inflammatories, and orthotics. P adding: He stopped weating any padding at toe. We discussed using a size medium toe sleeve as needed. Advised on supportive shoes and inserts with met pads but he only wears crocs. He will consider wearing better shoes. 4. A therosclerosis of elim ira arteries of extremities with intermittent claudication, bilateral legs Notes: Patient educated on risks and aggravating factors of PVD, including conservative treatment options such as a diet and exercise regimen to aid in slowing progression of vascular disease. Check and protect LE bilateral daily. Call if any changes or concerns. 5. O ther hereditary and idiopathic neuropathies Notes: D iscussed conservative care consisting of padding, wider shoes, anti-inflammatories, and orthotics. Discussed medical options and answered all questions about neuropathy. 6. T inea unguium Notes: Aseptic debridement of elongated thickened nails x 10 using sterile nippers, nails were debrided in length and thickness by 30% utilizing a nail nipper without incident. * Procedure Codes: 1 1056 TRIM SKIN LESIONS, 2 TO 4, Modifiers: Q8 37608 DEBRIDE NAIL, 6 OR MORE, Modifiers: 59 , Q8 * Follow Up: 2 Months,General Care Billing Information: * Procedure Codes: 57598 TRIM SKIN LESIONS, 2 TO 4. Modifiers: Q8 77659 DEBRIDE NAIL, 6 OR MORE. Modifiers: 59, Q8 * Electronic signature of KENYA FORBES DPM on 03/30/2025 at 12:41 PM BANK SECRECY ACT OFFICER Sign off status: Pending * Provider: Vic FORBES Date: 0 11/09/2024 Generated for Chris alfaro/Nae/Karen on: 05/30/2024 12:41 PM BANK SECRECY ACT OFFICER
--- OUTSIDE RECORDS SUMMARY | 2025-01-11 09:30 | XMS_ITS ---
Author Organization [facility] Address [address] [place], [place] [id number] Care Team Providers Care Knife Setter Grinder Machine Name Role Phone OMAR GONZALEZ Unavailable [phone] Nelson Munoz Unavailable Unavailable DEBBY FORBES Unavailable [phone] Allergies Allergen (clinical drug ingredient) Drug/Non Drug [...] Active Co Q 10 Active Vitamin D3 1712951 UNIT/GM Liquid as directed Active metFORMIN HCl [...] 01/11/2025 Encounters Encounter Location Date Provider Diagnosis [address] [id number] 01/11/2025 DEBBY FORBES Other hammer toe(s) (acquired), left foot M20.42 ; Tinea unguium B35.1 ; Atherosclerosis of [place] arteries of extremities with intermittent claudication, bilateral [...] nail nipper without incident. 01/11/2025 Atherosclerosis of [place] arteries of extremities with intermittent claudication, bilateral [...] a nail nipper without incident. Atherosclerosis of [place] ar teries of extremities with intermittent claudication, [...] Name:DEBBY Hughes KELSEY PADRON, 05/24/2025 02:40:00 PM, [address] [place] [address], [id number], History and Physical Notes * HPI (History [...] Notes * SHAYLA DRAKEOB:1955 (70 yo M)Acc No.[id number]:01/11/2025 Patient: DONALD ONOFRE Provider: Vic FORBES :1955 A ge:69 Y S ex:Male Date:01/11/2025 Address:[address] [place] [address] Subjective: * Chief Complaints: * * General [...] Silver 50+Men Co Q 10 Vitamin D3 5397157 UNIT/GM Liquid as directed Medication List reviewed [...] Taking Co Q 10 Taking Vitamin D3 8168695 UNIT/GM Liquid as directed Medication List reviewed [...] - M20.42 3 . A therosclerosis of [place] arteries of extremities with intermittent claudication, bilateral [...] anti-inflammatories, and orthotics. 3. A therosclerosis of [place] arteries of extremities with intermittent claudication, bilateral [...] SKIN LESIONS, 2 TO 4, Modifiers: Q8 99107 DEBRIDE NAIL, 6 OR MORE, Modifiers: 59 , Q8 * Preventive Medicine: Screenings: F all risk screening F all Risk Assessment: N o falls in the past year. * Follow Up: 2 Months,General Care Billing Information: * Procedure Codes: 31345 TRIM SKIN LESIONS, 2 TO 4. Modifiers: Q8 82726 DEBRIDE NAIL, 6 OR MORE. Modifiers: 59, Q8 * Electronic signature of KENYA FORBES DPM on 03/30/2025 at 12:41 PM ASSISTANT QUALITY MANAGER Sign off status: Pending * Provider: Vic FORBES Date: 0 01/11/2025 Generated for Chris alfaro/Nae/Karen on: 05/30/2024 12:41 PM ASSISTANT QUALITY MANAGER
--- OUTSIDE RECORDS SUMMARY | 2025-03-15 08:10 | XMS_ITS ---
Author Organization [facility] Address [address] [place], [place] [address] Care Team Providers Care Manager Of Operations Name Role Phone OMAR QUINTANA Unavailable [phone] Nelson Munoz Unavailable Unavailable DEBBY FORBES Unavailable [phone] Allergies Allergen (clinical drug ingredient) Drug/Non Drug Allergy documented on EMR Reaction Allergy Type Onset Date Status lansoprazole Prevacid Unknown Drug Allergy Acti ve Latex Latex Unknown Allergy Active REASON FOR VISIT *General care Medications Medication SIG (Take, Route, Frequency, Duration) Notes Start Date End Date Status Centrum Silver 50+Men Active Co Q 10 Active metFORMIN HCl 500 MG Tablet 1 tablet wit h a meal Orally Once a day Active Amitriptyline HCl 50 MG Tablet 1 tablet at bedtime Orally Once a day Active Vitamin D3 6203989 UNIT/GM Liquid as directed Active NovoLOG Active Lisinopril Active Basaglar Tempo Pen A ctive Metoprolol & Diet Manage Prod Active Gabapentin Active Simponi Aria Active Methotrexate Active Myrbetriq Active Folic Acid Active Lovastatin Active Symbicort Active Ozempic Active Albuterol Sulfate Ac tive Eliquis Active predniSONE Active Celecoxib Active Social History Section Notes: Smokes More than 2+ day No H istory of Alcohol/Beer Vital Signs Height 72 in 03/15/2025 Weight 200 lbs 03/15/2025 BMI 27.12 kg/m2 03/15/2025 Height-cm 182.88 cm 03/15/2025 Weight-kg 90.72 kg 03/15/2025 Encounters Encounter Location Date Provider Diagnosis [address] [id number] 03/15/2025 DEBBY FORBES Plan Of Treatment Next Appt Details Provider Name:DEBBY PADRON, 05/24/2025 02:40:00 PM, [address] [place] [address], [id number], History and Physical Notes * HPI (History of Present Illness) Category Sub-Category Detail Notes Category Not es HPI General care Patient presents to the office for diabetic foot care. Patient states that their nails are thickened, elongated and painful. Patient states that it is aggravated by shoe gear. Onset is gradual., Patient denies taking blood thinners., Date last seen by Dr. Munoz was 2024., Initials nd Progress Notes * SHAYLA DRAKEOB:1955 (70 yo M)Acc No.[id number]:03/15/2025 Patient: DONALD ONOFRE Provider: Vic FORBES :1955 A ge:70 Y S ex:Male Date:03/15/2025 Address:[address] [place], [place] [id number] Subjective: * Chief Complaints: * * General care * HPI: H PI: General care P alex presents to the office for diabetic foot care. Patient states that their nails are thickened, elongated and painful. Patient states that it is aggravated by shoe gear. Onset is gradual., Patient denies taking blood thinners., Date last seen by Dr. Munoz was 2024., Initials nd. * Medical History: Acid reflux Neuropathy Pneumonia [...] Silver 50+Men Co Q 10 Vitamin D3 4449024 UNIT/GM Liquid as directed Medication List reviewed [...] Taking Co Q 10 Taking Vitamin D3 2990940 UNIT/GM Liquid as directed Medication List reviewed and reconciled with the patient * Allergies: P revacidLatexyesAllergies Verified. Objective: * Vitals: S hoe Size: 10, Wt:200lbs, Wt-k.72 kg, Ht: 72 in, Ht-cm: 182.88 cm, BMI:27.12Index, Body Surface Area: 2.14. Billing Information: * Procedure Codes: * Electronic signature of KENYA FORBES DPM on 03/30/2025 at 12:40 PM LINUX ADMIN Sign off status: Pending * Provider: Vic FORBES Date: 05/15/2024 Generated for Chris alfaro/Nae/Karen on: 05/30/2024 12:40 PM LINUX ADMIN
--- NOTE | ~2025-03-30 | CT_ITS ---
CT abdomen pelvis w con Clinical History: CLL . Comparison: CT abdomen and pelvis 09/13/2020 Technique: Axial images lung bases to symphysis pubis 100 mL Omnipaque 350 Coronal, sagittal reformats CT images acquired with automatic exposure control for dose reduction DLP: 459 mGy-cm Findings: Lung bases: Emphysema. Scarring. Visualized heart and pericardium: Unremarkable. Liver: Steatosis. A few cysts. A few tiny hypodense foci too small to characterize; attention on future scans. Gallbladder: Unremarkable. Spleen: Unremarkable. Pancreas: Unremarkable. Adrenal glands: Unremarkable. Kidneys: Right kidney- No hydronephrosis. No renal stones. Left kidney- No hydronephrosis. No renal stones. Distal esophagus/stomach: Unremarkable. Small bowel loops: Normal caliber and wall thickness. Colon: Diverticula. Cysts Normal caliber and wall thickness. Normal RLQ appendix. Nodes: No enlarged nodes. Peritoneum: No ascites. No free air. Urinary bladder: Mild wall thickening but under distended. Prostate: Unremarkable. Bones: No acute bony abnormality. Soft tissues: Unremarkable. Aorta: No aneurysm or dissection. Atherosclerotic disease. Foci of ectasia IVC: Unremarkable. Main portal vein/SMV/splenic vein: Patent. IMPRESSION: 1. No acute findings. Reviewed, dictated and finalized at location R. RECEIVER IMPRESSION: 1. No acute findings.
--- OUTSIDE RECORDS SUMMARY | 2025-03-30 12:40 | XMS_ITS | Encounter Summary ---
Author Organization [facility] Address [address] [place] [address] Phone Care Team Providers Care Manganese Wheeler Name Role Phone Nelson Munoz MD Primary Care Provider [phone] Encounter Details Date Type Department Care Team (Late st Contact Info) Description 05/26/2019 Orders Only [facility] Scanning, Provider Social History Tobacco Use Types Packs/Day Years Used Date Smoking Tobacco: Every Day Cigarettes Smokeless Tobacco: Never Sex and Gender Information Value Date Recorded Sex Assigned at Not on file 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
--- OUTSIDE RECORDS SUMMARY | 2025-03-30 12:40 | XMS_ITS | Encounter Summary ---
Author Organization [facility] Address [address] [place] [address] Phone Care Team Providers Care Engineer System Administrator Name Role Phone Nelson Munoz MD Primary Care Provider [phone] Encounter Details Date Type Department Care Team (Late st Contact Info) Description 09/12/2019 Orders Only [facility] Scanning, Provider Social History Tobacco Use Types Packs/Day Years Used Date Smoking Tobacco: Every Day Cigarettes Smokeless Tobacco: Never Sex and Gender Information Value Date Recorded Sex Assigned at Not on file 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
--- OUTSIDE RECORDS SUMMARY | 2025-03-30 12:41 | XMS_ITS | Clinical Summary ---
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) 01/03/2025 1:30 PM CDT Office Visit [facility] Hematology [address] [place] [address] 6 [place] [address] Vito De León MD 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) 01/03/2025 12:30 PM CDT Lab [facility] Oncology Lab [address] [facility] [address] [place] [address] Hairy cell leukemia not having achieved remission [...] Cuff Repair - (Added by TW Conv) SC NJX AA&/STRD TFRML EPI CERVICAL/THORACIC 1 LEVEL Corticosteroid Inj Transforaminal Approach Cervical W/ Fluoroscopic Guidance - (Added by TW Conv) SC INJ CERV/THORAC,W/WO CNTRST Corticosteroid Injection Interlaminar Approach Cervical - (Added by TW Conv) SC INJ CERV/THORAC,W/WO CNTRST Corticosteroid Injection Interlaminar Approach Cervical - (Added by TW Conv) SC INJ CERV/THORAC,W/WO CNTRST Corticosteroid Injection Interlaminar Approach Cervical - (Added by TW Conv) SC INJ CERV/THORAC,W/WO CNTRST Corticosteroid Injection Interlaminar Approach Cervical - (Added by TW Conv) SC INJ CERV/THORAC,W/WO CNTRST Corticosteroid Injection Interlaminar Approach [...] on file 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, [address] [place] [phone] Lymphocyte abs 2.41 0.80 - 3.30 K/cumm [facility] Comment:Testing performed by : [facility], [address] [place] [phone] Monocyte abs 0.45 0.20 - 0.80 K/cumm [facility] Comment:Testing performed by : [facility], [address] [place], [place] [id number] Eosinophil abs 0.17 0.00 - 0.50 K/cumm [facility] Comment:Testing performed by : [facility], [address] [place] [phone] Basophil abs 0.05 0.00 - 0.10 K/cumm [facility] Comment:Testing performed by : [facility], [address] [place] [phone] Neutrophil pct 62.0 % CERNER BJ Comment: Interpretive Data Percent cell count reference ranges are not reported, since discordance with absolute values may lead to misinterpretation of CBC data. Current Interpretive Data was last revised on 2017. Testing performed by: [facility], [address] [place] [phone] Lymphocyte pct 29.8 % CERNER BJ Comment: Interpretive Data Percent cell count reference ranges are not reported, since discordance with absolute values may lead to misinterpretation of CBC data. Current Interpretive Data was last revised on 2017. Testing performed by: [facility], [address] [place] [phone] Monocyte pct 5.5 % CERNER BJ Comment: Interpretive Data Percent cell count reference ranges are not reported, since discordance with absolute values may lead to misinterpretation of CBC data. Current Interpretive Data was last revised on 2017. Testing performed by: [facility], [address] [place] [phone] Eosinophil pct 2.1 % JIM SALINAS Comment: Interpretive Data Percent cell count reference ranges are not reported, since discordance with absolute values may lead to misinterpretation of CBC data. Current Interpretive Data was last revised on 2017. Testing performed by: [facility], [address] [place] [address] Basophil pct 0.6 % JIM SALINAS Comment: Interpretive Data Percent cell count reference ranges are not reported, since discordance with absolute values may lead to misinterpretation of CBC data. Current Interpretive Data was last revised on 2017. Testing performed by: [facility], [address] [place] [address] Blood 01/03/2025 2:08 PM CDT 01/03/2025 2:20 PM CDT us Vito De León MD LAB BLOOD ORDERABLES Final R esult [facility]IM [facility] Department [place] [address] * CBC with auto differential (01/03/2025 2:08 PM CDT) WBC 8.08 3.80 - 9.90 K/cumm Comment:Testing performed by : [facility], [address] [place] [address] Hgb 14.4 13.0 - 17.5 g/dL JIM SALINAS Comment:Testing performed by : [facility], [address] [place] [address] Hct 40.7 38.9 - 50.3 % JIM BOLES Comment:Testing performed by : [facility], [address] [place] [address] Plt 169 150 - 400 K/cumm JIM BOLES Comment:Testing performed by : [facility], [address] [place] [address] MPV 7.9 6.8 - 10.4 fL JIM SALINAS Comment:Testing performed by : [facility], [address] [place] [address] RBC 4.36 4.30 - 5.80 M/cumm JIM SALINAS Comment:Testing performed by : [facility], [address] [place] [address] MCV 93.4 81.3 - 96.4 fL JIM SALINAS Comment:Testing performed by : [facility], [address] [place], [place] [phone] MCH 32.9 27.1 - 33.3 pg JIM SALINAS Comment:Testing performed by : [facility], [address] [place] [address] MCHC 35.3 32.3 - 35.7 g/dL JIM SALINAS Comment:Testing performed by : [facility], [address] [place] [address] RDW CV 14.8 11.1 - 14.9 % JIM SALINAS Comment:Testing performed by : [facility], [address] [place] [address] NRBC abs 0.00 0.00 - 0.01 K/cumm JIM SALINAS Comment:Testing performed by : [facility], [address] [place] [address] Blood 01/03/2025 2:08 PM CDT 01/03/2025 2:20 PM CDT us Vito De León MD LAB BLOOD ORDERABLES Final R esult JIM [facility] Department [place] [address] * (ABNORMAL) Comprehensive metabolic panel (01/03/2025 2:08 PM CDT) Sodium 141 135 - 145 mmol/L Potassium, pl 4.1 3.3 - 4.9 mmol/L [facility] Chloride 108 97 - 110 mmol/L [facility] CO2 24 22 - 32 mmol/L [facility] Anion gap 9 2 - 15 mmol/L [facility] BUN 14 6 - 25 mg/dL [facility] Creatinine 0.92 0.80 - 1.30 mg/dL [facility] Glucose 124 70 - 199 mg/dL [facility] Comment: Interpretive Data Fasting glucose >/= 126 [...] 2022. Calcium 9.4 8.5 - 10.3 mg/dL [facility] Bilirubin, total 0.5 0.1 - 1.2 mg/dL [facility] Protein, pl 6.4(L) 6.5 - 8.5 g/dL [facility] Albumin 4.2 3.5 - 5.0 g/dL [facility] Alk phos 58 40 - 130 Units/L [facility] ALT 15 7 - 55 Units/L [facility] AST 19 10 - 50 Units/L [facility] Blood 01/03/2025 2:08 PM CDT 01/03/2025 2:23 PM CDT us Vito De León MD LAB BLOOD ORDERABLES Final R esult [facility] Department [place] [address] from Last 3 Months Insurance MEDICARE [facility] INSURANCE [employer] SENIOR SUPPLEMENT MEDICARE [facility] INSURANCE MEDICARE Care Teams Concrete Products Dispatcher Relationship Specialty Start Date End Date Nelson Munoz MD [address] [place] [address] PCP - General 07/21/16
--- OUTSIDE RECORDS SUMMARY | 2025-03-30 12:41 | XMS_ITS ---
Author Organization [facility] Address [address] [place] [address] Care Team Providers Care Through Operator Name Role Phone Nelson Munoz MD Primary Care Provider [phone] Active Problems Patient Care Coordination No te [...]
--- OUTSIDE RECORDS SUMMARY | 2025-03-30 12:41 | XMS_ITS | Clinical Summary ---
Author Organization [facility] Address [address] [place] [address] Care Team Providers Care Sharepoint Manager Name Role Phone Unavailable Primary Care Provider [...] Comments Blood Pressure 114/76 06/20/2014 4:09 PM HEAD OF STOCK Pulse 90 06/20/2014 4:08 PM [facility] OF [facility] Temperature - - Respiratory Rate 16 06/20/2014 4:08 PM [facility]OCK Oxygen Saturation - - Inhaled Oxygen Concentration - - Weight 117.9 kg (260 lb) 06/20/2014 4:08 PM [facility] OF STOCK Height 182.9 cm (6') 06/20/2014 4:08 PM [facility] OF STOCK Body Mass Index 35.26 06/20/2014 4:08 PM HEAD OF STOCK Plan of Treatment Health Maintenance Due Date [...] patient's age to complete this topic Insurance [facility]
--- OUTSIDE RECORDS SUMMARY | 2025-03-30 12:41 | XMS_ITS ---
Author Organization [facility] Address [address] [address] Care Team Providers Care Assembler Name Role Phone Nelson Munoz MD Primary Care Provider [phone] Ximena MENDES MD, Osorio Unavailable [phone] Active Problems Problem Noted Date Diagnosed [...]
--- OUTSIDE RECORDS SUMMARY | 2025-03-30 12:41 | XMS_ITS | Clinical Summary ---
Author Organization [facility] Address [address] [place] [address] Care Team Providers Care Financial Accounting Manager Name Role Phone Nelson Munoz MD Primary Care Provider [phone] Ximena MENDES MD, Osorio Unavailable [phone] Source Comments [facility],non-owned Affiliates and Associated Physician Practices is amultiple site organization consisting of ambulatory clinics and hospital sitesin [place], [place], [place] and [place]. This disclosure is being madepursuant to the Care Everywhere program and may not contain all information available regarding this patient. Last updated 18.[facility] Allergies Active Allergy Reactions Criticality Noted Date [...] DIABETES 11/26/2020 DEPRESSION SCREENING 05/10/2024 COVID-19 VACCINE (1 - 2024-2 6 season) 2025 INFLUENZA VACCINE (#1) 2025 Respiratory [...] topic Insurance MEDICARE MEDICARE SUPPLEMENT [employer] Care Teams Financial Accounting Manager Relationship Specialty Start Date End Date Nelson Munoz MD [address] [place] [id number] PCP - General Internal Medicine 10/18/[address] [place] [address] [address] Orthopedic Surgery 11/26/20
--- OUTSIDE RECORDS SUMMARY | 2025-03-30 12:42 | XMS_ITS | Patient Health Record ---
Author Organization [facility] Address [address] [place], [place] [id number] Care Team Providers Care Braid Pattern Setter Name Role Phone OMAR GONZALEZ Unavailable [phone] Nelson Munoz Unavailable Unavailable DEBBY FORBES Unavailable [phone] Allergies Allergen (clinical drug ingredient) Drug/Non Drug [...] Gabapentin Active Folic Acid Active Vitamin D3 4896263 UNIT/GM Liquid as directed Active Lovastatin Active [...] 03/15/2025 Encounters Encounter Location Date Provider Diagnosis [address] [id number] 10/12/2024 DEBBY FORBES Acquired keratosis [keratoderma] palmaris et plantaris L85.1 ; 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 ; Other hammer toe(s) (acquired), left foot M20.42 ; Atherosclerosis of false pass arteries of extremities with intermittent claudication, bilateral legs I70.213 and Other hereditary and idiopathic neuropathies G60.[address] [id number] 11/09/2024 DEBBY FORBES Acquired keratosis [keratoderma] palmaris et plantaris L85.1 ; 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 ; Other hammer toe(s) (acquired), left foot M20.42 ; Atherosclerosis of false pass arteries of extremities with intermittent claudication, bilateral legs I70.213 ; Other hereditary and idiopathic neuropathies G60.8 and Tinea unguium B35.[address] [id number] 01/11/2025 DEBBY FORBES Other hammer toe(s) (acquired), left foot M20.42 ; Tinea unguium B35.1 ; Atherosclerosis of false pass arteries of extremities with intermittent claudication, bilateral legs I70.213 ; 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 ; Acquired keratosis [keratoderma] palmaris et plantaris L85.1 and Other hereditary and idiopathic neuropathies G60.8 [facility] [address] [place], [place] [id number] 03/15/2025 DEBBY FORBES [facility] [address] [place], [place] [id number] 07/27/2024 OMAR GONZALEZ Tinea unguium B35.1 ; Acquired keratosis [keratoderma] palmaris et plantaris L85.1 ; Atherosclerosis of false pass arteries of extremities with intermittent claudication, bilateral legs I70.213 ; Pain in right foot M79.671 ; Pain in left foot M79.672 ; 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 01/11/2025 Atherosclerosis of false pass arteries of extremities with intermittent claudication, bilateral [...] offload pressure from area. 07/27/2024 Atherosclerosis of false pass arteries of extremities with intermittent claudication, bilateral legs (ICD-10 - I70.213) 07/27/2024 Pain in right foot (ICD-10 - M79.671) 10/12/2024 Atherosclerosis of false pass arteries of extremities with intermittent claudication, bilateral legs (ICD-10 - I70.213) Check and protect LE bilateral daily. Call if any changes or concerns. 11/09/2024 Atherosclerosis of false pass arteries of extremities with intermittent claudication, bilateral [...] Details Provider Name:DEBBY PADRON, 05/24/2025 02:40:00 PM, [address] [place] [address], [id number], Insurance Providers Payer Name Payer Address Payer Phone Subscriber Number Group Number Insured Name Patient Relationship to Insured Coverage Start Date Coverage End Date Medicare Part B [place] [address] [place] [address] [id number] DONALD DRAKE Self - patient is the insured [facility] [address] [place] [phone] [id number] DONALD DRAKE Self - patient is the insured Medical (General) History Medical History History ICD Code acid reflux neuropathy Pneumonia anemia Asthma/Bronchitis Cancer Open Sores Respiratory disease Arthritis Bladder infections rheumatoid arthritis Sleep apnea Back Trouble Diabetic heart/disease/failure high blood pressure Lung Disease
[2025-03-30 13:06] LABS: Estimated Glomerular Filt Rate > 60
== END 2025-03-30 12:36 | disposition home or self-care (01) ==
LOC: CHSIMG 12:38
PROVIDERS: PCP Internal Medicine; Visit Provider Internal Medicine
DX: C91.10 Chronic lymphocytic leukemia of B-cell type not having achieved remission (principal)
CPT/HCPCS: 74177; Q9967

== ENCOUNTER 2025-04-20 15:52 | Outpatient (CLI) | payer MEDICARE, SELFPAY ==
--- OUTSIDE RECORDS SUMMARY | 2024-07-13 09:20 | XMS_ITS ---
Author Organization [facility] Address [address] [place], [place] [id number] Care Team Providers Care Steam Brush Operator Name Role Phone OMAR GONZALEZ Unavailable [phone] Nelson Munoz Unavailable Unavailable REASON FOR VISIT toe ulcer, hammer toe Encounters Encounter Location Date Provider Diagnosis [address] [id number] 07/13/2024 OMAR GONZALEZ Plan Of Treatment Next Appt Details Provider Name:DEBBY PADRON, 05/24/2025 02:40:00 PM, [address] [place] [address], [id number], Progress Notes * NOELLESHAYLAOB:1955 (70 yo M)Acc No.[id number]:07/13/2024 Patient: DONALD ONOFRE Provider: Honorio Gonzalez DPM :1955 A ge:69 Y S ex:Male Date:07/13/2024 Address:[address] [facility] Subjective: * Chief Complaints: * T oe ulcer, hammer toe Billing Information: * Procedure Codes: * Electronic signature of OMAR GONZALEZ DPM on 04/20/2025 at 04:06 PM REFERRAL AND INFORMATION AIDE Sign off status: Pending * Provider: Honorio Gonzalez DPM Date: 0 07/13/2024 Generated for Printi ng/Faxing/eTransmitting on: 1 06/21/2024 04:06 PM REFERRAL AND INFORMATION AIDE
--- OUTSIDE RECORDS SUMMARY | 2024-08-10 05:20 | XMS_ITS ---
Author Organization [facility] Address [address] [place], [place] [address] Care Team Providers Care Foamite Mixer Name Role Phone OMAR GONZALEZ Unavailable [phone] Nelson Munoz Unavailable Unavailable DEBBY FORBES Unavailable [phone] REASON FOR VISIT *Wound check Encounters Encounter Location Date Provider Diagnosis [address] [id number] 08/10/2024 DEBBY FORBES Plan Of Treatment Next Appt Details Provider Name:DEBBY PADRON, 05/24/2025 02:40:00 PM, [address] [place] [address], [id number], Progress Notes * SHAYLA DRAKEOB:1955 (70 yo M)Acc No.[id number]:08/10/2024 Patient: DONALD ONOFRE Provider: Vic FORBES :1955 A ge:69 Y S ex:Male Date:08/10/2024 Address:[address] [facility] Subjective: * Chief Complaints: * * Wound check Billing Information: * Procedure Codes: * Electronic signature of KENYA FORBES DPM on 04/20/2025 at 04:08 PM CAMPAIGN ADVISOR Sign off status: Pending * Provider: Vic FORBES Date: 0 08/10/2024 Generated for Printi ng/Faxing/eTransmitting on: 1 06/21/2024 04:08 PM CAMPAIGN ADVISOR
--- OUTSIDE RECORDS SUMMARY | 2024-10-12 04:40 | XMS_ITS ---
Author Organization [facility] Address [address] [place], [place] [address] Care Team Providers Care Legal Director Name Role Phone OMAR GONZALEZ Unavailable [phone] Nelson Munoz Unavailable Unavailable DEBBY FORBES Unavailable [phone] Allergies Allergen (clinical drug ingredient) Drug/Non Drug [...] a day Active Celecoxib Active Vitamin D3 0435983 UNIT/GM Liquid as directed Active Lisinopril Active [...] 10/12/2024 Encounters Encounter Location Date Provider Diagnosis [address] [id number] 10/12/2024 DEBBY FORBES Acquired keratosis [keratoderma] palmaris et plantaris L85.1 ; 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 10/12/2024 Atherosclerosis of [place] arteries of extremities with intermittent claudication, bilateral [...] will consider wearing better shoes. Atherosclerosis of [place] ar teries of extremities with intermittent claudication, [...] Provider Name:DEBBY Saul PADRON, 05/24/2025 02:40:00 PM, [address] [place] [address], [id number], History and Physical Notes * HPI (History of Present Illness) Category Sub-Category Detail Notes Category Not es HPI Follow Up Visit Patient presents for follow-up visit for a wound on the left 2nd digit. The wound is healed, and the patient has no concerns. Patient states that he has a callus on the right heel that he would like looked at. , MA: [facility] Examination Category Sub-Category Detail Notes Category [...] Notes * NOELLE BENTONSILVIOOB:1955 (70 yo M)Acc No.[id number]:10/12/2024 Patient: DONALD ONOFRE Provider: Vic FORBES :1955 A ge:69 Y S ex:Male Date:10/12/2024 Address:[address] [place] [address] Subjective: * Chief Complaints: * * Wound check * HPI: H PI: Follow Up Visit P alex presents for follow-up visit for a wound on the left 2nd digit. The wound is healed, and the patient has no concerns. Patient states that he has a callus on the right heel that he would like looked at. , MA: [facility]. * ROS: G eneral / Constitutional: [...] Silver 50+Men Co Q 10 Vitamin D3 4234613 UNIT/GM Liquid as directed Medication List reviewed [...] Taking Co Q 10 Taking Vitamin D3 0057571 UNIT/GM Liquid as directed Medication List reviewed [...] - M20.42 4 . A therosclerosis of [place] arteries of extremities with intermittent claudication, bilateral [...] wearing better shoes. 4. A therosclerosis of [place] arteries of extremities with intermittent claudication, bilateral [...] Months,General Care Billing Information: * Visit Code: 84987 Office Visit, Est Pt., Level 3. * Procedure Codes: * Electronic signature of KENYA FORBES DPM on 04/20/2025 at 04:06 PM CREDIT CONTROL ADMINISTRATOR Sign off status: Pending * Provider: Vic FORBES Date: 0 10/12/2024 Generated for Chris alfaro/Nae/Karen on: 1 06/21/2024 04:06 PM CREDIT CONTROL ADMINISTRATOR
--- OUTSIDE RECORDS SUMMARY | 2024-10-26 05:10 | XMS_ITS ---
Author Organization [facility] Address [address] [place], [place] [address] Care Team Providers Care Picker/Puller Name Role Phone OMAR GONZALEZ Unavailable [phone] Nelson Munoz Unavailable Unavailable DEBBY FORBES Unavailable [phone] REASON FOR VISIT *General care Medications Medication SIG (Take, Route, Frequency, Duration) Notes Start Date End Date Status Celecoxib Active Vitamin D3 4058201 UNIT/GM Liquid as directed Active Eliquis Active [...] Active Encounters Encounter Location Date Provider Diagnosis [address] [id number] 10/26/2024 DEBBY FORBES Acquired keratosis [keratoderma] palmaris et plantaris L85.1 ; 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 10/26/2024 Atherosclerosis of [place] arteries of extremities with intermittent claudication, bilateral [...] will consider wearing better shoes. Atherosclerosis of [place] ar teries of extremities with intermittent claudication, [...] Reason: Provider Name:DEBBY PADRON, 05/24/2025 02:40:00 PM, [address] [place] [address], [id number], History and Physical Notes * Examination Category [...] Notes * LAURY DRAKE:1955 (70 yo M)Acc No.[id number]:10/26/2024 Patient: DONALD ONOFRE Provider: Vic FORBES :1955 A ge:69 Y S ex:Male Date:10/26/2024 Address:[address] [place] [address], [place] [address] Subjective: * Chief Complaints: * * General [...] Silver 50+Men Co Q 10 Vitamin D3 9842977 UNIT/GM Liquid as directed Taking Celecoxib Taking [...] Taking Co Q 10 Taking Vitamin D3 1075865 UNIT/GM Liquid as directed Objective: * Examination: [...] - M20.42 4 . A therosclerosis of [place] arteries of extremities with intermittent claudication, bilateral [...] wearing better shoes. 4. A therosclerosis of [place] arteries of extremities with intermittent claudication, bilateral [...] of KENYA FORBES DPM on 04/20/2025 at 04:07 PM ANIMATION DIRECTOR Sign off status: Pending * Provider: Vic FORBES Date: 0 10/26/2024 Generated for Chris alfaro/Nae/Karen on: 1 06/21/2024 04:07 PM ANIMATION DIRECTOR
--- OUTSIDE RECORDS SUMMARY | 2024-11-09 09:30 | XMS_ITS ---
Author Organization [facility] Address [address] [place], [place] [address] Care Team Providers Care Automation Qa Tester Name Role Phone OMAR QUINTANA Unavailable [phone] Nelson Munoz Unavailable Unavailable DEBBY FORBES Unavailable [phone] Allergies Allergen (clinical drug ingredient) Drug/Non Drug Allergy documented on EMR Reaction Allergy Type Onset Date Status lansoprazole Prevacid Unknown Drug Allergy Acti ve Latex Latex Unknown Allergy Active REASON FOR VISIT *General care Medications Medication SIG (Take, Route, Frequency, Duration) Notes Start Date End Date Status Albuterol Sulfate Ac tive Celecoxib Active predniSONE Active Vitamin D3 9718075 UNIT/GM Liquid as directed Active Co Q [...] Alcohol/Beer Encounters Encounter Location Date Provider Diagnosis [address] [id number] 11/09/2024 DEBBY FORBES Acquired keratosis [keratoderma] palmaris et plantaris L85.1 ; 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 11/09/2024 Atherosclerosis of [place] arteries of extremities with intermittent claudication, bilateral [...] will consider wearing better shoes. Atherosclerosis of [place] ar teries of extremities with intermittent claudication, [...] Reason: Provider Name:DEBBY PADRON, 05/24/2025 02:40:00 PM, [address] [place] [address], [id number], History and Physical Notes * HPI (History [...] Notes * SHAYLA DRAKEOB:1955 (70 yo M)Acc No.[id number]:11/09/2024 Patient: Onelia BOCSHELEAZAR DONALD Provider: Vic FORBES :1955 A ge:69 Y S ex:Male Date:11/09/2024 Address:[address] [place], [place] [phone] Subjective: * Chief Complaints: * * General [...] Silver 50+Men Co Q 10 Vitamin D3 9030032 UNIT/GM Liquid as directed Medication List reviewed [...] Taking Co Q 10 Taking Vitamin D3 4034735 UNIT/GM Liquid as directed Medication List reviewed [...] - M20.42 4 . A therosclerosis of [place] arteries of extremities with intermittent claudication, bilateral [...] wearing better shoes. 4. A therosclerosis of [place] arteries of extremities with intermittent claudication, bilateral [...] SKIN LESIONS, 2 TO 4, Modifiers: Q8 99035 DEBRIDE NAIL, 6 OR MORE, Modifiers: 59 , Q8 * Follow Up: 2 Months,General Care Billing Information: * Procedure Codes: 54323 TRIM SKIN LESIONS, 2 TO 4. Modifiers: Q8 56934 DEBRIDE NAIL, 6 OR MORE. Modifiers: 59, Q8 * Electronic signature of KENYA FORBES DPM on 04/20/2025 at 04:06 PM SERVICE PLUMBER Sign off status: Pending * Provider: Vic FORBES Date: 0 11/09/2024 Generated for Chris alfaro/Nae/Karen on: 1 06/21/2024 04:06 PM SERVICE PLUMBER
--- OUTSIDE RECORDS SUMMARY | 2025-01-11 09:30 | XMS_ITS ---
Author Organization [facility] Address [address] [place], [place] [address] Care Team Providers Care Manager Asset Management Name Role Phone OMAR GONZALEZ Unavailable [phone] Nelson Munoz Unavailable Unavailable DEBBY FORBES Unavailable [phone] Allergies Allergen (clinical drug ingredient) Drug/Non Drug Allergy documented on EMR Reaction Allergy Type Onset Date Status lansoprazole Prevacid Unknown Drug Allergy Acti ve Latex Latex Unknown Allergy Active REASON FOR VISIT *General care Medications Medication SIG (Take, Route, Frequency, Duration) Notes Start Date End Date Status Amitriptyline HCl 50 MG Tablet 1 tablet at bedtime Orally Once a day Active Centrum Silver 50+Men Active Co Q 10 Active Vitamin D3 7117709 UNIT/GM Liquid as directed Active metFORMIN HCl 500 MG Tablet 1 tablet wit h a meal Orally Once a day Active Metoprolol & Diet Manage Prod Active Gabapentin Active Lisinopril Active Basaglar Tempo Pen A ctive NovoLOG Active Lovastatin Active Myrbetriq Active Simponi Aria Active Methotrexate Active Folic Acid Active predniSONE Active Albuterol Sulfate Ac tive Eliquis Active Ozempic Active Symbicort Active Celecoxib Active Social History Section Notes: Smokes More than 2+ day No H istory of Alcohol/Beer Vital Signs Height 72 in 01/11/2025 Weight 200 lbs 01/11/2025 BMI 27.12 kg/m2 01/11/2025 Height-cm 182.88 cm 01/11/2025 Weight-kg 90.72 kg 01/11/2025 Encounters Encounter Location Date Provider Diagnosis [address] [id number] 01/11/2025 DEBBY FORBES Other hammer toe(s) (acquired), left foot M20.42 ; Tinea unguium B35.1 ; Atherosclerosis of [place] arteries of extremities with intermittent claudication, bilateral legs I70.213 ; 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 Discussed conservative care consisting of padding, wider shoes, anti-inflammatori es, and orthotics. 01/11/2025 Tinea unguium (ICD-10 - B35.1) Aseptic debridement of elongated thickened nails x 10 using sterile nippers, nails were debrided in length and thickness by 30% utilizing a nail nipper without incident. 01/11/2025 Atherosclerosis of [place] arteries of extremities with intermittent claudication, bilateral legs (ICD-10 - I70.213) Patient educated on risks and aggravating factors of PVD, including conservative treatment options such as a diet and exercise regimen to aid in slowing progression of vascular disease. Check and protect LE bilateral daily. Call if any changes or concerns. 01/11/2025 Non-pressure chronic ulcer of other part of left foot limited to breakdown of skin (ICD-10 - L97.521) Ulcer Resolved: The hyperkeratotic tissue from the ulcer site was debrided down to normal appearing tissue. Advised patient to monitor this area for recurrence. Patient may discontinue local wound care. 01/11/2025 Acquired keratosis [keratoderma] palmaris et plantaris (ICD-10 - L85.1) A total of 3 corns or calluses, as described in the note above, were cut and pared utilizing a #15 blade 01/11/2025 Other hereditary and idiopathic neuropathies (ICD-10 - G60.8) Discussed conservative care consisting of padding, wider shoes, anti-inflammatori es, and orthotics. Discussed medical options and answered all questions about neuropathy. Plan Of Treatment Treatment Notes Assessment Notes Other hammer toe(s) (acquired), left jocelyn t Hammertoe Deformity: Discussed various treatments for hammer toes with the patient . Discussed conservative care consisting of padding, wider shoes, anti-inflammatories, and orthotics. Tinea unguium Aseptic debridement of elongated thickened nails x 10 using sterile nippers, nails were debrided in length and thickness by 30% utilizing a nail nipper without incident. Atherosclerosis of [place] ar teries of extremities with intermittent claudication, bilateral legs Patient educated on risks and aggravatin g factors of PVD, including conservative treatment options such as a diet and exercise regimen to aid in slowing progression of vascular disease. Check and protect LE bilateral daily. Call if any changes or concerns. Non-pressure chronic ulcer o f other part of left foot limited to breakdown of skin Ulcer Resolved: The hyperkeratotic tissue from the ulcer site was debrided down to normal appearing tissue. Advised patient to monitor this area for recurrence. Patient may discontinue local wound care. Acquired keratosis [keratode rma] palmaris et plantaris A total of 3 corns or calluses, as described in the note above, were cut and pared utilizing a #15 blade Other hereditary and idiopat hic neuropathies Discussed conservative care consisting o f padding, wider shoes, anti-inflammatories, and orthotics. Discussed medical options and answered all questions about neuropathy. Next Appt Details Follow Up: 2 Months,General Care, Reason: Provider Name:DEBBY Hughes KELSEY PADRON, 05/24/2025 02:40:00 PM, [address] [place] [address], [id number], History and Physical Notes * HPI (History of Present Illness) Category Sub-Category Detail Notes Category Not es HPI General care Patient presents to the office for diabetic foot care. Patient states that their nails are thickened, elongated and painful. Patient states that it is aggravated by shoe gear. Onset is gradual., Patient is taking prescription blood thinners., Date last seen by Dr. Munoz was 07/2024., Initials nd Examination Category Sub-Category Detail Notes Category Not es Dermatologic Skin findings: Skin is thin, at rophic and lacking pedal hair Nail pathology: Nails 1, 2, 3, 4, an d 5 bilateral are elongated, thick, discolored, and dystrophic with subungual debris. They are painful to palpation Hypertrophic / hyperkeratotic lesion: bi lateral sub 5th mtpj and plantar aspect of the left 2nd digit, and [...] Notes * SHAYLA DRAKEOB:1955 (70 yo M)Acc No.[id number]:01/11/2025 Patient: DONALD ONOFRE Provider: Vic FORBES :1955 A ge:69 Y S ex:Male Date:01/11/2025 Address:[address] [place] [address] Subjective: * Chief Complaints: * * General care * HPI: H PI: General care P alex presents to the office for diabetic foot care. Patient states that their nails are thickened, elongated and painful. Patient states that it is aggravated by shoe gear. Onset is gradual., Patient is taking prescription blood thinners., Date last seen by Dr. Munoz was 07/2024., Initials nd. * ROS: G eneral / Constitutional: Patient [...] Disease Medical History Verified * Surgical History: Denies Past Surgical History. Surgical History verified. * Hospitalization/Major Diagno stic Procedure: Denies Past Hospitalization. Hospitalization Verified. * Family History: F ather: , Blood [...] Silver 50+Men Co Q 10 Vitamin D3 3377032 UNIT/GM Liquid as directed Medication List reviewed [...] Taking Co Q 10 Taking Vitamin D3 9763965 UNIT/GM Liquid as directed Medication List reviewed [...] lacking pedal hair. Hypertrophic / hyperkeratotic lesion: b ilateral sub 5th mtpj and plantar aspect of the left 2nd digit, and [...] rigid and nonreducible. Assessment: * Assessment: 1. T inea unguium - B35.1 (Primary) 2 . O ther hammer toe(s) (acquired), left foot - M20.42 3 . A therosclerosis of [place] arteries of extremities with intermittent claudication, bilateral legs - I70.213 4 . N on-pressure chronic ulcer of other part of left foot limited to breakdown of skin - L97.521 5 . A cquired keratosis [keratoderma] palmaris et plantaris - L85.1 6 . O ther hereditary and idiopathic neuropathies - G60.8 Plan: * Treatment: 2. O ther hammer toe(s) (acquired), left foot Notes: Hammertoe Deformity: Discussed various treatments for hammer toes with the patient . Discussed conservative care consisting of padding, wider shoes, anti-inflammatories, and orthotics. 3. A therosclerosis of [place] arteries of extremities with intermittent claudication, bilateral legs Notes: Patient educated on risks and aggravating factors of PVD, including conservative treatment options such as a diet and exercise regimen to aid in slowing progression of vascular disease. Check and protect LE bilateral daily. Call if any changes or concerns. 4. N on-pressure chronic ulcer of other part of left foot limited to breakdown of skin Notes: Ulcer Resolved: The hyperkeratotic tissue from the ulcer site was debrided down to normal appearing tissue. Advised patient to monitor this area for recurrence. Patient may discontinue local wound care. 5. A cquired keratosis [keratoderma] palmaris et plantaris Notes: A total of 3 corns or calluses, as described in the note above, were cut and pared utilizing a #15 blade 6. O ther hereditary and idiopathic neuropathies Notes: D iscussed conservative care consisting of padding, wider shoes, anti-inflammatories, and orthotics. Discussed medical options and answered all questions about neuropathy. * Procedure Codes: 1 1056 TRIM SKIN LESIONS, 2 TO 4, Modifiers: Q8 28917 DEBRIDE NAIL, 6 OR MORE, Modifiers: 59 , Q8 * Preventive Medicine: Screenings: F all risk screening F all Risk Assessment: N o falls in the past year. * Follow Up: 2 Months,General Care Billing Information: * Procedure Codes: 21757 TRIM SKIN LESIONS, 2 TO 4. Modifiers: Q8 53364 DEBRIDE NAIL, 6 OR MORE. Modifiers: 59, Q8 * Electronic signature of KENYA FORBES DPM on 04/20/2025 at 04:07 PM CANDY FORMING MACHINE OPERATOR Sign off status: Pending * Provider: Vic FORBES Date: 0 01/11/2025 Generated for Chris alfaro/Nae/Karen on: 1 06/21/2024 04:07 PM CANDY FORMING MACHINE OPERATOR
--- OUTSIDE RECORDS SUMMARY | 2025-03-15 08:10 | XMS_ITS ---
Author Organization [facility] Address [address] [place], [place] [id number] Care Team Providers Care Junior Data Analyst Name Role Phone OMAR GONZALEZ Unavailable [phone] Nelson Munoz Unavailable Unavailable DEBBY FORBES Unavailable [phone] Allergies Allergen (clinical drug ingredient) Drug/Non Drug [...] Orally Once a day Active Vitamin D3 2698179 UNIT/GM Liquid as directed Active NovoLOG Active [...] 03/15/2025 Encounters Encounter Location Date Provider Diagnosis [address] [id number] 03/15/2025 DEBBY FORBES Tinea unguium B35.1 ; Other hammer toe(s) (acquired), left foot M20.42 ; 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 03/15/2025 Other hammer toe(s) (acquired), left foot (ICD-10 - M20.42) Hammertoe Deformity: Discussed various treatments for hammer toes with the patient . Discussed conservative care consisting of padding, wider shoes, anti-inflammatori es, and orthotics. 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 Check and protect LE bilateral daily. Call if any changes or concerns. 03/15/2025 Non-pressure chronic ulcer of other part of left foot limited to breakdown of skin (ICD-10 - L97.521) Ulcer Resolved: The hyperkeratotic tissue from the ulcer site was debrided down to normal appearing tissue. Advised patient to monitor this area for recurrence. Patient may discontinue local wound care. 03/15/2025 Acquired keratosis [keratoderma] palmaris et plantaris (ICD-10 - L85.1) A total of 3 corns or calluses, as described in the note above, were cut and pared utilizing a #15 blade 03/15/2025 Other hereditary and idiopathic neuropathies (ICD-10 - G60.8) Discussed conservative care consisting of padding, wider shoes, anti-inflammatori es, and orthotics. Discussed medical options and answered all questions about neuropathy. Plan Of Treatment Treatment Notes Assessment Notes Tinea unguium Aseptic debridement of elongated thickened nails x 10 using sterile nippers, nails were debrided in length and thickness by 30% utilizing a nail nipper without incident. Other hammer toe(s) (acquired), left jocelyn t Hammertoe Deformity: Discussed various treatments for hammer toes with the patient . Discussed conservative care consisting of padding, wider shoes, anti-inflammatories, and orthotics. Atherosclerosis of lovelock ar teries of extremities with intermittent claudication, [...] Name:DEBBY Hughes KELSEY PADRON, 05/24/2025 02:40:00 PM, [address] [place] [address], [id number], History and Physical Notes * HPI (History [...] by Dr. Munoz was 2024., Initials nd Examination Category Sub-Category Detail Notes [...] Notes * SHAYLA DRAKEOB:1955 (70 yo M)Acc No.[id number]:03/15/2025 Patient: Onelia FARIDEH DONALD Provider: Vic FORBES :1955 A ge:70 Y S ex:Male Date:03/15/2025 Address:[address] [place] [address] Subjective: * Chief Complaints: * * General care * HPI: H PI: General care P alex presents to the office for diabetic foot care. Patient states that their nails are thickened, elongated and painful. Patient states that it is aggravated by shoe gear. Onset is gradual., Patient denies taking blood thinners., Date last seen by Dr. Munoz was 2024., Initials nd. * ROS: G eneral / [...] of f ungal nails, calluses and corns, history of u lcerations. N eurologic: Patient complains of n umbness. [...] Silver 50+Men Co Q 10 Vitamin D3 5067171 UNIT/GM Liquid as directed Medication List reviewed [...] Taking Co Q 10 Taking Vitamin D3 7182664 UNIT/GM Liquid as directed Medication List reviewed [...] - M20.42 3 . A therosclerosis of lovelock arteries of extremities with intermittent claudication, bilateral [...] anti-inflammatories, and orthotics. 3. A therosclerosis of lovelock arteries of extremities with intermittent claudication, bilateral [...] of KENYA FORBES DPM on 04/20/2025 at 04:04 PM WHARF TALLY CLERK Sign off status: Pending * Provider: Vic FORBES Date: 05/15/2024 Generated for Chris alfaro/Nae/Karen on: 06/21/2024 04:04 PM WHARF TALLY CLERK
--- NOTE | ~2025-04-20 | XR_ITS ---
EXAMINATION: XR chest 2V DATE: 04/20/2025 16:11 INDICATION: Rib pain TECHNIQUE: Frontal and lateral views of the chest were obtained. COMPARISON: December 27, 2022 FINDINGS: The lungs are clear. Heart size normal. Diffuse degenerative changes throughout the thoracic spine. No gross rib fracture or obvious bony deformity identified. Visualized portion of the upper abdomen unremarkable. IMPRESSION: 1. No focal acute process. Reviewed, dictated and finalized at location A. LE DEVELOPMENT MANAGER IMPRESSION: 1. No focal acute process.
--- OUTSIDE RECORDS SUMMARY | 2025-04-20 16:05 | XMS_ITS | Encounter Summary ---
Author Organization [facility] [employer] [facility] Address [address] [place] [address] Phone Care Team Providers Care Warehouse Hand Name Role Phone Nelson Munoz MD Primary Care Provider [phone] Encounter Details Date Type Department Care Team (Late st Contact Info) Description 05/26/2019 Orders Only [facility] Scanning, Provider Social History Tobacco Use Types Packs/Day Years Used Date Smoking Tobacco: Every Day Cigarettes Smokeless Tobacco: Never Sex and Gender Information Value Date Recorded Sex Assigned at Not on file 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
--- OUTSIDE RECORDS SUMMARY | 2025-04-20 16:05 | XMS_ITS | Clinical Summary ---
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 Medicine Hematology [address] [place] [phone] Leti Tafoya RN 04/11/[address] 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) (Primary Dx) 04/10/2025 Telephone [facility] Hematology [address] [place] [phone] Leti Tafoya, RN 03/30/2025 Orders Only [facility] Scanning, Provider 03/30/2025 Telephone [facility] Hematology [address] [place] [phone] Leti Tafoya RN 03/22/2025 Orders Only [facility] Scanning, Provider from Last 3 Months Immunizations Immunization Administration [...] of back pain - (Adde d by Conv) Family History Medical History Relation Name Comments Heart attack Mother Relation Name Status Comments Mother Social History Tobacco Use Types Packs/Day Years Used Date Smoking Tobacco: Former Cigarettes Passive Smoke Exposure: Past Smokeless Tobacco: Never Tobacco Cessation:Counseling Given: Not Answered Sex and Gender Information Value Date Recorded Sex Assigned at Not on file Legal Sex Male 12:17 AM CONTINUITY WRITER Gender Identity Male 01/06/2023 12:03 PM CDT [...] Visit 65+ 2019 Influenza Vaccine (#1) 2025 0, 01/30/2019, 02/24/2018, Additional history exists DTaP/Tdap/Td Vaccine (2 - Td or Tdap) 08/27/2026 08/27/2016 Zoster Vaccine Completed 02/25/2019, 12/05/2018 Procedures Procedure Name Priority Date/Time Associated Diagnosis Comments EGFR Routine 04/12/2025 2:53 PM CONTINUITY WRITER 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) DIFFERENTIAL AUTO Routine 04/12/2025 2:5 3 PM CONTINUITY WRITER 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) CBC WITH AUTO DIFFERENTIAL Routine 04/12/2025 2:53 PM CONTINUITY WRITER 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) COMPREHENSIVE METABOLIC PANEL Routine 04/12/2025 2:53 PM CONTINUITY WRITER 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 73 m2 Comment: Interpretive Data [...] of Race in Diagnosing Kidney Disease, JASN 2020). The CKD-EPI equation should not be used for patients with unstable renal function and has not been validated in children and those over 70. Current interpretive data was last reviewed 2021. Blood 04/12/2025 2:53 PM CONTINUITY WRITER 04/12/2025 3:03 PM CONTINUITY WRITER us Vito De León MD LAB BLOOD ORDERABLES Final R esult JIM SALINAS [facility] Department [place] [address] * Differential, auto (04/12/2025 2:53 PM CONTINUITY WRITER) [facility] Neutrophil abs 4.13 1.50 - 6.50 K/cumm Comment:Testing performed by : [facility], [address] [place] [phone] Lymphocyte abs 1.82 0.80 - 3.30 K/cumm JIM SALINAS Comment:Testing performed by : [facility], [address] [place] [phone] Monocyte abs 0.40 0.20 - 0.80 K/cumm JIM SALINAS Comment:Testing performed by : [facility], [address] [place] [phone] Eosinophil abs 0.17 0.00 - 0.50 K/cumm [facility] Comment:Testing performed by : [facility], [address] [place] [phone] Basophil abs 0.03 0.00 - 0.10 K/cumm [facility] Comment:Testing performed by : [facility], [address] [place], [place] [phone] Neutrophil pct 63.0 % [facility]ER [facility] Comment: Interpretive Data Percent cell count reference ranges are not reported, since discordance with absolute values may lead to misinterpretation of CBC data. Current Interpretive Data was last revised on 2017. Testing performed by: [facility], [address] [place] [address] Lymphocyte pct 27.9 % [facility] Comment: Interpretive Data Percent cell count reference ranges are not reported, since discordance with absolute values may lead to misinterpretation of CBC data. Current Interpretive Data was last revised on 2017. Testing performed by: [facility], [address] [place] [address] Monocyte pct 6.1 % [facility] Comment: Interpretive Data Percent cell count reference ranges are not reported, since discordance with absolute values may lead to misinterpretation of CBC data. Current Interpretive Data was last revised on 2017. Testing performed by: [facility], [address] [place] [address] Eosinophil pct 2.6 % [facility] Comment: Interpretive Data Percent cell count reference ranges are not reported, since discordance with absolute values may lead to misinterpretation of CBC data. Current Interpretive Data was last revised on 2017. Testing performed by: [facility], [address] [place] [phone] Basophil pct 0.5 % [facility] Comment: Interpretive Data Percent cell count reference ranges are not reported, since discordance with absolute values may lead to misinterpretation of CBC data. Current Interpretive Data was last revised on 2017. Testing performed by: [facility], [address] [place] [address] Blood 04/12/2025 2:53 PM CONTINUITY WRITER 04/12/2025 3:01 PM CONTINUITY WRITER us Vito De León MD LAB BLOOD ORDERABLES Final R esult JIM SALINAS [facility] Department [place] [address] * (ABNORMAL) CBC with auto differential (04/12/2025 2:53 PM CONTINUITY WRITER) WBC 6.55 3.80 - 9.90 K/cumm Comment:Testing performed by : [facility], [address] [place] [address] Hgb 14.3 13.0 - 17.5 g/dL JIM SALINAS Comment:Testing performed by : [facility], [address] [place] [address] Hct 42.1 38.9 - 50.3 % JIM SALINAS Comment:Testing performed by : [facility], [address] [place] [address] Plt 165 150 - 400 K/cumm JIM SALINAS Comment:Testing performed by : [facility], [address] [place] [address] MPV 7.4 6.8 - 10.4 fL JIM SALINAS Comment:Testing performed by : [facility], [address] [place] [address] RBC 4.34 4.30 - 5.80 M/cumm JIM SALINAS Comment:Testing performed by : [facility], [address] [place] [address] MCV 97.0(H) 81.3 - 96.4 fL JIM SALINAS Comment:Testing performed by : [facility], [address] [place] [address] MCH 33.0 27.1 - 33.3 pg CERKITA SALINAS Comment:Testing performed by : [facility], [address] [place] [address] MCHC 34.0 32.3 - 35.7 g/dL [facility] Comment:Testing performed by : [facility], [address] [place] [phone] RDW CV 14.1 11.1 - 14.9 % [facility] Comment:Testing performed by : [facility], [address] [place] [phone] NRBC abs 0.00 0.00 - 0.01 K/cumm [facility] Comment:Testing performed by : [facility], [address] [place] [phone] Blood 04/12/2025 2:53 PM CONTINUITY WRITER 04/12/2025 3:01 PM CONTINUITY WRITER Vito De León MD LAB BLOOD ORDERABLES Final R esult Performing Organization Address [facility] de Phone Number [facility] Department [place] [address] * PN profile (04/12/2025 2:53 PM CONTINUITY WRITER) [facility] RBC-CD59 Test Completed [facility] WBC-CD59 Test Completed [facility] FLAER Test Completed [facility] Interpretation See separate Surgical Pathology report. [facility] Blood 04/12/2025 2:53 PM CONTINUITY WRITER 04/12/2025 5:42 PM CONTINUITY WRITER Narrative [facility] - 04/13/2025 9:23 AM CONTINUITY WRITER This test was developed and its performance characteristics determined by the [facility] Flow Cytometry Laboratory. It has not been cleared or approved by the US Food and Drug Administration. This test is used for clinical purposes. It should not be regarded as investigational or for research. This laboratory is certified under the Clinical Laboratory Improvement Amendments (CLIA) as qualified to perform high complexity clinical laboratory testing. If reference ranges are not populated, there is no established reference range for that parameter for the patient s age. Vito De León MD LAB BLOOD ORDERABLES Final R esult [facility] Department [place] [address] * Lactate dehydrogenase (LD) (04/12/2025 2:53 PM CONTINUITY WRITER) Lactate dehydrogenase (LDH) 156 100 - 250 Units/L Blood 04/12/2025 2:53 PM CONTINUITY WRITER 04/12/2025 3:03 PM CONTINUITY WRITER Vito De León MD LAB BLOOD ORDERABLES Final R esult Performing Organization Address [facility] Co de Phone Number [facility] [place] [address] * Comprehensive metabolic panel (04/12/2025 2:53 PM CONTINUITY WRITER) Pathologist [facility] Sodium 142 135 - 145 mmol/L Potassium, pl 4.3 3.3 - 4.9 mmol/L [facility] Chloride 108 97 - 110 mmol/L [facility] CO2 28 22 - 32 mmol/L [facility] Anion gap 6 2 - 15 mmol/L [facility] BUN 13 6 - 25 mg/dL [facility] Creatinine 0.88 0.80 - 1.30 mg/dL [facility] Glucose 135 70 - 199 mg/dL [facility] Comment: Interpretive Data Fasting glucose >/= 126 [...] 2022. Calcium 9.4 8.5 - 10.3 mg/dL [facility] Bilirubin, total 0.6 0.1 - 1.2 mg/dL [facility] Protein, pl 6.9 6.5 - 8.5 g/dL [facility] Albumin 4.3 3.5 - 5.0 g/dL [facility] Alk phos 64 40 - 130 Units/L [facility] ALT 22 7 - 55 Units/L [facility] AST 23 10 - 50 Units/L [facility] Blood 04/12/2025 2:53 PM CONTINUITY WRITER 04/12/2025 3:03 PM CONTINUITY WRITER us Vito De León MD LAB BLOOD ORDERABLES Final R esult [facility] Department [place] [address] * Surgical pathology (04/12/2025 12:04 PM CONTINUITY WRITER) Blood 04/12/2025 12:0 4 PM CONTINUITY WRITER 04/12/2025 5:43 PM CONTINUITY WRITER Narrative 04/13/2025 2:30 PM CONTINUITY WRITER EPIC results best viewed via link to PDF [facility] [place] [address] Note to Patients: This report may contain a detailed description of human tissue sent by a health care provider to the laboratory for pathologic evaluation. The content of this report is essential for diagnosis and may provide important critical findings. This information may be unfamiliar to patients to review without a medical professional present. It is advised that the patient review this report in the presence of a health care provider who can answer questions and explain the details. SURGICAL PATHOLOGY REPORT FINAL Patient Name: DONLAD DRAKE Gender: M : 1955 (Age: 70) Address: [address] [place] [id number] Hospital #: [id number] Taken:04/12/2025 Received:04/12/2025 Reported: 04/13/2025 Patient Type: [facility] MED ONC Service: Laboratory Location: Physician(s): Vito De León M.D. Diagnosis: Peripheral blood, flow cytometry - No immunophenotypic evidence of paroxysmal nocturnal hemoglobinuria [facility]/04/13/2025 14:30 By this signature, I attest that the above diagnosis is based upon my personal examination of the slides(and/or other material indicated in the diagnosis). Sarkis Oswald M.D. Report Electronically Reviewed and Signed Out By Sarkis Oswald M.D. 04/13/2025 14:30:50 Microscopic Description and Comment: Flow cytometry performed on the peripheral blood shows retained expression of CD59 in red blood cells and granulocytes. Furthermore, granulocytes demonstrate retained FLAER binding. Flow cytometry was performed using antibodies to the following cellular antigens: CD45, UY765l, CD15, CD59, FLAER. Total antigens analyzed: 5 Monie Ceja M.D. 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 Addenda/Procedures The performance characteristics of some immunohistochemical stains, fluorescence in-situ hybridization tests and immunophenotyping by flow cytometry cited in this report (if any) were determined by the Surgical Pathology and Flow Cytometry Departments at [facility] as part of an ongoing manager quality compliance program and in compliance with federally mandated regulations drawn from the Clinical Laboratory Improvement Act of 1988 (CLIA '88). Some of these tests rely on the use of analyte specific reagents and are subject to specific labeling requirements by the US Food and Drug Administration. Such diagnostic tests may only be performed in a facility that is certified by the Department of Health and Human Services as a high complexity laboratory under CLIA '88. The FDA has determined that such clearance or approval is not necessary. This test is used for clinical purposes. It should not be regarded as investigational or for research. Nevertheless, federal rules concerning the medical use of analyte specific reagents require that the following disclaimer be attached to the report: This test was developed and its performance characteristics determined by the Surgical Pathology and Flow Cytometry Departments of [facility]. It has not been cleared or approved by the U. S. Food and Drug Administration. IMAGES AND SCANNED DOCUMENTS, IF INCLUDED, ONLY VIEWABLE IN PDF VERSION OF REPORT us Vito De León MD LAB PATHOLOGY ORDERABLES Fin al Result * SCAN - RADIOLOGY/IMAGING (03/30/2025) Anatomical Region Laterality Modality Other us Provider Scanning Final Result * SCAN - RADIOLOGY/IMAGING (03/22/2025) Anatomical Region Laterality Modality Other us Provider Scanning Final Result from Last 3 Months Insurance MEDICARE [facility] INSURANCE [employer] SENIOR SUPPLEMENT MEDICARE [facility] INSURANCE MEDICARE Care Teams Trial Court Judge Relationship Specialty Start Date End Date Nelson Munoz MD [address] [place] [address] PCP - General 07/21/16
--- OUTSIDE RECORDS SUMMARY | 2025-04-20 16:05 | XMS_ITS | Encounter Summary ---
Author Organization [facility] [employer] [facility] Address [address] [place] [address] Phone Care Team Providers Care Alarm Service Technician Name Role Phone Nelson uMnoz MD Primary Care Provider [phone] Encounter Details Date Type Department Care Team (Late st Contact Info) Description 09/12/2019 Orders Only [facility] Scanning, Provider Social History Tobacco Use Types Packs/Day Years Used Date Smoking Tobacco: Every Day Cigarettes Smokeless Tobacco: Never Sex and Gender Information Value Date Recorded Sex Assigned at Not on file 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
--- OUTSIDE RECORDS SUMMARY | 2025-04-20 16:06 | XMS_ITS | Clinical Summary ---
Author Organization [facility] Address [address] [place] [address] Care Team Providers Care Small Business Consultant Name Role Phone Nelson Munoz MD Primary Care Provider [phone] Ximena MENDES MD, Osorio Unavailable [phone] Source Comments [facility],non-owned Affiliates and Associated Physician Practices is amultiple site organization consisting of ambulatory clinics and hospital sitesin [place]. This disclosure is being madepursuant to the Care Everywhere program and may not contain all information available regarding this patient. Last updated 18.[facility] Allergies Active Allergy Reactions Criticality Noted Date [...] MEDICARE MEDICARE SUPPLEMENT PAYOR GENERIC Care Teams Small Business Consultant Relationship Specialty Start Date End Date Nelson Munoz MD [address] [place] [id number] PCP - General Internal Medicine 10/18/[address] [place] [address] [address] Orthopedic Surgery 11/26/20
--- OUTSIDE RECORDS SUMMARY | 2025-04-20 16:06 | XMS_ITS | Encounter Summary ---
Author Organization [facility] [employer] [facility] Address [address] [place] [address] Phone Care Team Providers Care Industrial Cleaner Name Role Phone Nelson Munoz MD Primary Care Provider [phone] Encounter Details Date Type Department Care Team (Latest Contact Info) Description 03/22/2025 Orders Only [facility] Scanning, Provider Social History Tobacco Use Types Packs/Day Years Used Date Smoking Tobacco: Former Cigarettes Passive Smoke Exposure: Past Smokeless Tobacco: Never Sex and Gender Information Value Date Recorded Sex Assigned at Not on file Legal 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 Gender Identity Male 01/06/2023 12:03 PM CDT Sexual Orientation Straight 01/06/2023 12 :03 PM CDT documented as of this encounter Plan of Treatment Not on file documented as of this encounter Procedures Procedure Name Priority Date/Time Associated Diagnosis Comments SCAN - RADIOLOGY/IMAGING 03/22/2025 documented in this encounter Results * SCAN - RADIOLOGY/IMAGING (03/22/2025) Anatomical Region Laterality Modality Other us Provider Scanning Final Result documented in this encounter Visit Diagnoses Not on filedocumented in this encounter Care Teams Industrial Cleaner Relationship Specialty Start Date End Date Nelson Munoz MD [address] [place] [address] PCP - General 07/21/16 documented as of this encounter
--- OUTSIDE RECORDS SUMMARY | 2025-04-20 16:06 | XMS_ITS ---
Author Organization [facility] Address [address] [place] [address] Care Team Providers Care Job Trainer Name Role Phone Nelson Munoz MD Primary Care Provider [phone] Active Problems Patient Care Coordination No te [...]
--- OUTSIDE RECORDS SUMMARY | 2025-04-20 16:06 | XMS_ITS ---
Author Organization [facility] Address [address] [place] [address] Care Team Providers Care Aluminum Shingle Roofer Name Role Phone Nelson Munoz MD Primary Care Provider [phone] Ximena MENDES MD, Osorio Unavailable Active Problems Problem Noted Date Diagnosed Date [...]
--- OUTSIDE RECORDS SUMMARY | 2025-04-20 16:06 | XMS_ITS | Encounter Summary ---
Author Organization [facility] [employer] [facility] Address [address] [place] [address] Phone Care Team Providers Care Boom Tender Name Role Phone Nelson Munoz MD Primary Care Provider [phone] Encounter Details Date Type Department Care Team (Latest Contact Info) Description 03/30/2025 Orders Only [facility] Scanning, Provider Social History Tobacco Use Types Packs/Day Years Used Date Smoking Tobacco: Former Cigarettes Passive Smoke Exposure: Past Smokeless Tobacco: Never Sex and Gender Information Value Date Recorded Sex Assigned at Not on file 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 Gender Identity Male 01/06/2023 12:03 PM CDT Sexual Orientation Straight 01/06/2023 12 :03 PM CDT documented as of this encounter Plan of Treatment Not on file documented as of this encounter Procedures Procedure Name Priority Date/Time Associated Diagnosis Comments SCAN - RADIOLOGY/IMAGING 03/30/2025 documented in this encounter Results * SCAN - RADIOLOGY/IMAGING (03/30/2025) Anatomical Region Laterality Modality Other us Provider Scanning Final Result documented in this encounter Visit Diagnoses Not on filedocumented in this encounter Care Teams Boom Tender Relationship Specialty Start Date End Date Nelson Munoz MD [address] [place] [address] PCP - General 07/21/16 documented as of this encounter
--- OUTSIDE RECORDS SUMMARY | 2025-04-20 16:07 | XMS_ITS | Encounter Summary ---
Author Organization [facility] [employer] [facility] Address [address] [place] [address] Phone Care Team Providers Care Ruby On Rails Developer Name Role Phone Nelson Munoz MD Primary Care Provider [phone] Encounter Details Date Type Department Care Team (Latest Contact Info) Description 12/07/2024 Orders Only [facility] Scanning, Provider Social History Tobacco Use Types Packs/Day Years Used Date Smoking Tobacco: Former Cigarettes Passive Smoke Exposure: Past Smokeless Tobacco: Never Sex and Gender Information Value Date Recorded Sex Assigned at Not on file Legal 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 Gender Identity Male 01/06/2023 12:03 PM CDT Sexual Orientation Straight 01/06/2023 12 :03 PM CDT documented as of this encounter Plan of Treatment Not on file documented as of this encounter Procedures Procedure Name Priority Date/Time Associated Diagnosis Comments SCAN - LABS 12/07/2024 documented in this encounter Results * SCAN - LABS (12/07/2024) us Provider Scanning Final Result documented in this encounter Visit Diagnoses Not on filedocumented in this encounter Care Teams Ruby On Rails Developer Relationship Specialty Start Date End Date Nelson Munoz MD [address] [place], [place] [id number] PCP - General 07/21/16 documented as of this encounter
--- OUTSIDE RECORDS SUMMARY | 2025-04-20 16:07 | XMS_ITS | Clinical Summary ---
Author Organization [facility] Address [address] [place] [address] Care Team Providers Care Motor Operator Name Role Phone Unavailable Primary Care Provider [...] Comments Blood Pressure 114/76 06/20/2014 4:09 PM CHIEF OF PLANNING Pulse 90 06/20/2014 4:08 PM CHIEF OF PLANNING Temperature - - Respiratory Rate 16 06/20/2014 4:08 PM CHIEF OF PLANNING Oxygen Saturation - - Inhaled Oxygen Concentration - - Weight 117.9 kg (260 lb) 06/20/2014 4:08 PM CHIEF OF PLANNING Height 182.9 cm (6') 06/20/2014 4:08 PM CHIEF OF PLANNING Body Mass Index 35.26 06/20/2014 4:08 PM CHIEF OF PLANNING Plan of Treatment Health Maintenance Due Date [...] patient's age to complete this topic Insurance [facility]
--- OUTSIDE RECORDS SUMMARY | 2025-04-20 16:08 | XMS_ITS | Patient Health Record ---
Author Organization [facility] Address [address] [place], [place] [id number] Care Team Providers Care Process Artist Name Role Phone OMAR GONZALEZ Unavailable [phone] Nelson Munoz Unavailable Unavailable DEBBY FORBES Unavailable [phone] Allergies Allergen (clinical drug ingredient) Drug/Non Drug [...] Gabapentin Active Folic Acid Active Vitamin D3 5974380 UNIT/GM Liquid as directed Active Lovastatin Active [...] 03/15/2025 Encounters Encounter Location Date Provider Diagnosis [address] [id number] 10/12/2024 DEBBY FORBES Acquired keratosis [keratoderma] palmaris et plantaris L85.1 ; 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 ; Other hammer toe(s) (acquired), left foot M20.42 ; Atherosclerosis of [place] arteries of extremities with intermittent claudication, bilateral legs I70.213 and Other hereditary and idiopathic neuropathies G60.[address] [id number] 11/09/2024 DEBBY FORBES Acquired keratosis [keratoderma] palmaris et plantaris L85.1 ; 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 ; Other hammer toe(s) (acquired), left foot M20.42 ; Atherosclerosis of [place] arteries of extremities with intermittent claudication, bilateral legs I70.213 ; Other hereditary and idiopathic neuropathies G60.8 and Tinea unguium B35.[address] [id number] 01/11/2025 DEBBY FORBES Other hammer toe(s) (acquired), left foot M20.42 ; Tinea unguium B35.1 ; Atherosclerosis of [place] arteries of extremities with intermittent claudication, bilateral legs I70.213 ; 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 ; Acquired keratosis [keratoderma] palmaris et plantaris L85.1 and Other hereditary and idiopathic neuropathies G60.[address] [id number] 03/15/2025 DEBBY FORBES Tinea unguium B35.1 ; Other hammer toe(s) (acquired), left foot M20.42 ; Atherosclerosis of [place] arteries of extremities with intermittent claudication, bilateral legs I70.213 ; 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 ; Acquired keratosis [keratoderma] palmaris et plantaris L85.1 and Other hereditary and idiopathic neuropathies G60.[address] [id number] 07/27/2024 OMAR GONZALEZ Tinea unguium B35.1 ; Acquired keratosis [keratoderma] palmaris et plantaris L85.1 ; Atherosclerosis of [place] arteries of extremities with intermittent claudication, bilateral legs I70.213 ; Pain in right foot M79.671 ; Pain in left foot M79.672 ; 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 03/15/2025 Tinea unguium (ICD-10 - B35.1) Aseptic [...] anti-inflammatori es, and orthotics. 03/15/2025 Atherosclerosis of [place] arteries of extremities with intermittent claudication, bilateral legs (ICD-10 - I70.213) Patient educated on risks and aggravating factors of PVD, including conservative treatment options such as a diet and exercise regimen to aid in slowing progression of vascular disease. Check and protect LE bilateral daily. Call if any changes or concerns. 01/11/2025 Atherosclerosis of [place] arteries of extremities with intermittent claudication, bilateral [...] offload pressure from area. 07/27/2024 Atherosclerosis of [place] arteries of extremities with intermittent claudication, bilateral legs (ICD-10 - I70.213) 07/27/2024 Pain in right foot (ICD-10 - M79.671) 10/12/2024 Atherosclerosis of [place] arteries of extremities with intermittent claudication, bilateral [...] Patient may discontinue local wound care. 11/09/2024 Atherosclerosis of [place] arteries of extremities with intermittent claudication, bilateral [...] and pared utilizing a #15 blade 11/09/2024 Other hereditary and idiopathic neuropathies (ICD-10 [...] answered all questions about neuropathy. 03/15/2025 Other hereditary and idiopathic neuropathies (ICD-10 [...] Provider Name:DEBBY PADRON, 05/24/2025 02:40:00 PM, [address] [place] [address], [id number], Insurance Providers Payer Name Payer Address Payer Phone Subscriber Number Group Number Insured Name Patient Relationship to Insured Coverage Start Date Coverage End Date Medicare Part B [place] [address] [place] [address] [id number] DONALD DRAKE Self - patient is the insured [facility] [address] [place] [address] [id number] DONALD DRAKE Self - patient is the insured Medical (General) History Medical History History ICD Code acid reflux neuropathy Pneumonia anemia Asthma/Bronchitis Cancer Open Sores Respiratory disease Arthritis Bladder infections rheumatoid arthritis Sleep apnea Back Trouble Diabetic heart/disease/failure high blood pressure Lung Disease
== END 2025-04-20 15:53 | disposition home or self-care (01) ==
LOC: CHSIMG 15:55
PROVIDERS: PCP Nurse Practitioner Family; Visit Provider Nurse Practitioner Family
DX: R07.89 Other chest pain (principal)
CPT/HCPCS: 71046

== ENCOUNTER 2025-05-07 14:42 | Outpatient (CLI) | payer MEDICARE, SELFPAY ==
--- OUTSIDE RECORDS SUMMARY | 2024-07-13 09:20 | XMS_ITS ---
Author Organization [facility] Address [address] [place], [place] [id number] Care Team Providers Care Fabrication Manager Name Role Phone OMAR GONZALEZ Unavailable [phone] Nelson Munoz Unavailable Unavailable REASON FOR VISIT toe ulcer, hammer toe Encounters Encounter Location Date Provider Diagnosis [address] [id number] 07/13/2024 OMAR GONZALEZ Plan Of Treatment Next Appt Details Provider Name:DEBBY PADRON, 05/24/2025 02:40:00 PM, [address] [place] [address], [id number], Progress Notes * NOELLESHAYLAOB:1955 (70 yo M)Acc No.[id number]:07/13/2024 Patient: DONALD ONOFRE Provider: Honorio Gonzalez DPM :1955 A ge:69 Y S ex:Male Date:07/13/2024 Address:[address] [id number] Subjective: * Chief Complaints: * T oe ulcer, hammer toe Billing Information: * Procedure Codes: * Electronic signature of OMAR GONZALEZ DPM on 05/07/2025 at 02:58 PM OUTBOUND SALES REPRESENTATIVE Sign off status: Pending * Provider: Honorio Gonzalez DPM Date: 0 07/13/2024 Generated for Printi ng/Faxing/eTransmitting on: 1 02:58 PM OUTBOUND SALES REPRESENTATIVE
--- OUTSIDE RECORDS SUMMARY | 2024-08-10 05:20 | XMS_ITS ---
Author Organization [facility] Address [address] [place], [place] [address] Care Team Providers Care Beeswax Bleacher Name Role Phone OMAR GONZALEZ Unavailable [phone] Nelson Munoz Unavailable Unavailable DEBBY FORBES Unavailable [phone] REASON FOR VISIT *Wound check Encounters Encounter Location Date Provider Diagnosis [address] [id number] 08/10/2024 DEBBY FORBES Plan Of Treatment Next Appt Details Provider Name:DEBBY PADRON, 05/24/2025 02:40:00 PM, [address] [place] [address], [id number], Progress Notes * SHAYLA DRAKEOB:1955 (70 yo M)Acc No.[id number]:08/10/2024 Patient: DONALD ONOFRE Provider: Vic FORBES :1955 A ge:69 Y S ex:Male Date:08/10/2024 Address:[address] [facility] Subjective: * Chief Complaints: * * Wound check Billing Information: * Procedure Codes: * Electronic signature of KENYA FORBES DPM on 05/07/2025 at 02:59 PM DIE TRIMMER Sign off status: Pending * Provider: Vic FORBES Date: 0 08/10/2024 Generated for Printi ng/Faxing/eTransmitting on: 1 02:59 PM DIE TRIMMER
--- OUTSIDE RECORDS SUMMARY | 2024-10-12 04:40 | XMS_ITS ---
Author Organization [facility] Address [address] [place], [place] [address] Care Team Providers Care Auditor Supervisor Name Role Phone OMAR GONZALEZ Unavailable [phone] Nelson Munoz Unavailable Unavailable DEBBY FORBES Unavailable [phone] Allergies Allergen (clinical drug ingredient) Drug/Non Drug [...] a day Active Celecoxib Active Vitamin D3 6246579 UNIT/GM Liquid as directed Active Lisinopril Active [...] 10/12/2024 Encounters Encounter Location Date Provider Diagnosis [address] [id number] 10/12/2024 DEBBY FORBES Acquired keratosis [keratoderma] palmaris et plantaris L85.1 ; 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 10/12/2024 Atherosclerosis of [place] arteries of extremities with intermittent claudication, bilateral [...] will consider wearing better shoes. Atherosclerosis of [place] ar teries of extremities with intermittent claudication, [...] Provider Name:DEBBY Saul PADRON, 05/24/2025 02:40:00 PM, [address] [place] [address], [id number], History and Physical Notes * HPI (History of Present Illness) Category Sub-Category Detail Notes Category Not es HPI Follow Up Visit Patient presents for follow-up visit for a wound on the left 2nd digit. The wound is healed, and the patient has no concerns. Patient states that he has a callus on the right heel that he would like looked at. , [place]: [facility] Examination Category Sub-Category Detail Notes Category Not [...] Notes * NOELLE BENTONSILVIOOB:1955 (70 yo M)Acc No.[id number]:10/12/2024 Patient: DONALD ONOFRE Provider: Vic FORBES :1955 A ge:69 Y S ex:Male Date:10/12/2024 Address:[address] [place] [address] Subjective: * Chief Complaints: * * Wound check * HPI: H PI: Follow Up Visit P alex presents for follow-up visit for a wound on the left 2nd digit. The wound is healed, and the patient has no concerns. Patient states that he has a callus on the right heel that he would like looked at. , [place]: [facility]. * ROS: G eneral / Constitutional: Patient [...] Silver 50+Men Co Q 10 Vitamin D3 4974779 UNIT/GM Liquid as directed Medication List reviewed [...] Taking Co Q 10 Taking Vitamin D3 5737731 UNIT/GM Liquid as directed Medication List reviewed [...] - M20.42 4 . A therosclerosis of [place] arteries of extremities with intermittent claudication, bilateral [...] wearing better shoes. 4. A therosclerosis of [place] arteries of extremities with intermittent claudication, bilateral [...] Months,General Care Billing Information: * Visit Code: 62183 Office Visit, Est Pt., Level 3. * Procedure Codes: * Electronic signature of KENYA FORBES DPM on 05/07/2025 at 02:58 PM WELDING INSPECTOR Sign off status: Pending * Provider: Vic FORBES Date: 0 10/12/2024 Generated for Chris alfaro/Nae/Sarahitting on: 1 02:58 PM WELDING INSPECTOR
--- OUTSIDE RECORDS SUMMARY | 2024-10-26 05:10 | XMS_ITS ---
Author Organization [facility] Address [address] [place], [place] [id number] Care Team Providers Care Paint Supervisor Name Role Phone OMAR GONZALEZ Unavailable [phone] Nelson Munoz Unavailable Unavailable DEBBY FORBES Unavailable [phone] REASON FOR VISIT *General care Medications Medication SIG (Take, Route, Frequency, Duration) Notes Start Date End Date Status Celecoxib Active Vitamin D3 8265497 UNIT/GM Liquid as directed Active Eliquis Active Albuterol Sulfate Ac tive predniSONE Active Co Q 10 Active NovoLOG Active metFORMIN HCl 500 MG Tablet 1 tablet wit h a meal Orally Once a day Active Centrum Silver 50+Men Active Amitriptyline HCl 50 MG Tablet 1 tablet at bedtime Orally Once a day Active Metoprolol & Diet Manage Prod Active Lovastatin Active Basaglar Tempo Pen A ctive Lisinopril Active Gabapentin Active Folic Acid Active Methotrexate Active Myrbetriq Active Symbicort Active Simponi Aria Active Ozempic Active Encounters Encounter Location Date Provider Diagnosis [address] [id number] 10/26/2024 DEBBY FORBES Acquired keratosis [keratoderma] palmaris et plantaris L85.1 ; 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 ; Other hammer toe(s) (acquired), left foot M20.42 ; Atherosclerosis of [place] arteries of extremities with intermittent claudication, bilateral legs I70.213 and Other hereditary and idiopathic neuropathies G60.8 Assessments Encounter Date Diagnosis (ICD Code) Assessment Notes Treatment Notes Treatment Clinical Notes Section Notes 10/26/2024 Acquired keratosis [keratoderma] palmaris et plantaris (ICD-10 - L85.1) A total of 3 corns or calluses, as described in the note above, were cut and pared utilizing a #15 blade 10/26/2024 Non-pressure chronic ulcer of other part of left foot limited to breakdown of skin (ICD-10 - L97.521) Ulcer Resolved: The hyperkeratotic tissue from the ulcer site was debrided down to normal appearing tissue. Advised patient to monitor this area for recurrence. Patient may discontinue local wound care. 10/26/2024 Other hammer toe(s) (acquired), left foot (ICD-10 [...] crocs. He will consider wearing better shoes. 10/26/2024 Atherosclerosis of [place] arteries of extremities with intermittent claudication, bilateral legs (ICD-10 - I70.213) Check and protect LE bilateral daily. Call if any changes or concerns. 10/26/2024 Other hereditary and idiopathic neuropathies (ICD-10 - [...] will consider wearing better shoes. Atherosclerosis of [place] ar teries of extremities with intermittent claudication, bilateral legs Check and protect LE bilateral daily. Ca ll if any changes or concerns. Other hereditary and idiopat hic neuropathies Discussed conservative care consisting o f padding, wider shoes, anti-inflammatories, and orthotics. Discussed medical options and answered all questions about neuropathy. Next Appt Details Follow Up: 2 Months,General Care, Reason: Provider Name:DEBBY PADRON, 05/24/2025 02:40:00 PM, [address] [place] [address], [id number], History and Physical Notes * Examination Category Sub-Category Detail Notes Category Not [...] is rigid and nonreducible Progress Notes * LAURY DRAKE:1955 (70 yo M)Acc No.[id number]:10/26/2024 Patient: DONALD ONOFRE Provider: Vic FORBES :1955 A ge:69 Y S ex:Male Date:10/26/2024 Address:[address] [place] [address], [place] [address] Subjective: * Chief Complaints: * * General care * ROS: G eneral / Constitutional: Patient denies c hills, fever, weight loss. ? M usculoskeletal: Patient denies w eakness, broken foot bone. P atient complains of h ammertoes. P eripheral Vascular: Patient complains of u lceration of feet. S kin: Patient complains of f ungal nails, calluses and corns, ulcerations. N eurologic: Patient complains of n umbness. * Medications: T akingCelecoxib predniSONE Albuterol Sulfate Eliquis Ozempic Symbicort Myrbetriq Simponi Aria Methotrexate Folic Acid Lovastatin Metoprolol & Diet Manage Prod Gabapentin Lisinopril Basaglar Tempo Pen NovoLOG metFORMIN HCl 500 MG Tablet 1 tablet with a meal Orally Once a day Amitriptyline HCl 50 MG Tablet 1 tablet at bedtime Orally Once a day Centrum Silver 50+Men Co Q 10 Vitamin D3 5905232 UNIT/GM Liquid as directed Taking Celecoxib Taking predniSONE Taking Albuterol Sulfate Taking [...] Taking Co Q 10 Taking Vitamin D3 9379586 UNIT/GM Liquid as directed Objective: * Examination: P hysical Examination: General appearance: [...] - M20.42 4 . A therosclerosis of [place] arteries of extremities with intermittent claudication, bilateral [...] wearing better shoes. 4. A therosclerosis of [place] arteries of extremities with intermittent claudication, bilateral legs Notes: Check and protect LE bilateral daily. Call if any changes or concerns. 5. O ther hereditary and idiopathic neuropathies Notes: D iscussed conservative care consisting of padding, wider shoes, anti-inflammatories, and orthotics. Discussed medical options and answered all questions about neuropathy. * Follow Up: 2 Months,General Care Billing Information: * Procedure Codes: * Electronic signature of KENYA OFRBES DPM on 05/07/2025 at 02:59 PM MANAGER CREDIT RISK Sign off status: Pending * Provider: Vic FORBES Date: 0 10/26/2024 Generated for Chris alfaro/Nae/Karen on: 1 02:59 PM MANAGER CREDIT RISK
--- OUTSIDE RECORDS SUMMARY | 2024-11-09 09:30 | XMS_ITS ---
Author Organization [facility] Address [address] [place], [place] [id number] Care Team Providers Care Special Education Case Manager Name Role Phone OMAR QUINTANA Unavailable [phone] Nelson Munoz Unavailable Unavailable DEBBY FORBES Unavailable [phone] Allergies Allergen (clinical drug ingredient) Drug/Non Drug Allergy documented on EMR Reaction Allergy Type Onset Date Status lansoprazole Prevacid Unknown Drug Allergy Acti ve Latex Latex Unknown Allergy Active REASON FOR VISIT *General care Medications Medication SIG (Take, Route, Frequency, Duration) Notes Start Date End Date Status Albuterol Sulfate Ac tive Celecoxib Active predniSONE Active Vitamin D3 0839760 UNIT/GM Liquid as directed Active Co Q [...] Alcohol/Beer Encounters Encounter Location Date Provider Diagnosis [address] [id number] 11/09/2024 DEBBY FORBES Acquired keratosis [keratoderma] palmaris et plantaris L85.1 ; 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 11/09/2024 Atherosclerosis of [place] arteries of extremities with intermittent claudication, bilateral [...] will consider wearing better shoes. Atherosclerosis of [place] ar teries of extremities with intermittent claudication, [...] Reason: Provider Name:DEBBY PADRON, 05/24/2025 02:40:00 PM, [address] [place] [address], [id number], History and Physical Notes * HPI (History [...] Notes * SHAYLA DRAKEOB:1955 (70 yo M)Acc No.[id number]:11/09/2024 Patient: Onelia BOSCHELEAZAR DONALD Provider: Vic FORBES :1955 A ge:69 Y S ex:Male Date:11/09/2024 Address:[address] [place], [place] [phone] Subjective: * Chief Complaints: * * General [...] Silver 50+Men Co Q 10 Vitamin D3 4394875 UNIT/GM Liquid as directed Medication List reviewed [...] Taking Co Q 10 Taking Vitamin D3 0957528 UNIT/GM Liquid as directed Medication List reviewed [...] - M20.42 4 . A therosclerosis of [place] arteries of extremities with intermittent claudication, bilateral [...] wearing better shoes. 4. A therosclerosis of [place] arteries of extremities with intermittent claudication, bilateral [...] SKIN LESIONS, 2 TO 4, Modifiers: Q8 40453 DEBRIDE NAIL, 6 OR MORE, Modifiers: 59 , Q8 * Follow Up: 2 Months,General Care Billing Information: * Procedure Codes: 70689 TRIM SKIN LESIONS, 2 TO 4. Modifiers: Q8 83608 DEBRIDE NAIL, 6 OR MORE. Modifiers: 59, Q8 * Electronic signature of KENYA FORBES DPM on 05/07/2025 at 02:59 PM PAINTER DECORATOR Sign off status: Pending * Provider: Vic FROBES Date: 0 11/09/2024 Generated for Chris alfaro/Nae/Karen on: 1 02:59 PM PAINTER DECORATOR
--- OUTSIDE RECORDS SUMMARY | 2025-01-11 09:30 | XMS_ITS ---
Author Organization [facility] Address [address] [place], [place] [phone] Care Team Providers Care Drywall Contractor Name Role Phone OMAR GONZALEZ Unavailable [phone] Nelson Munoz Unavailable Unavailable DEBBY FORBES Unavailable [phone] Allergies Allergen (clinical drug ingredient) Drug/Non Drug [...] Active Co Q 10 Active Vitamin D3 0418242 UNIT/GM Liquid as directed Active metFORMIN HCl [...] 01/11/2025 Encounters Encounter Location Date Provider Diagnosis [address] [id number] 01/11/2025 DEBBY FORBES Other hammer toe(s) (acquired), left foot M20.42 ; Tinea unguium B35.1 ; Atherosclerosis of [place] arteries of extremities with intermittent claudication, bilateral [...] nail nipper without incident. 01/11/2025 Atherosclerosis of [place] arteries of extremities with intermittent claudication, bilateral [...] a nail nipper without incident. Atherosclerosis of [place] ar teries of extremities with intermittent claudication, [...] Name:DEBBY Hughes KELSEY PADRON, 05/24/2025 02:40:00 PM, [address] [place] [address], [id number], History and Physical Notes * HPI (History [...] Notes * SHAYLA DRAKEOB:1955 (70 yo M)Acc No.[id number]:01/11/2025 Patient: DONALD ONOFRE Provider: Vic FORBES :1955 A ge:69 Y S ex:Male Date:01/11/2025 Address:[address] [place] [address] Subjective: * Chief Complaints: * * General [...] Silver 50+Men Co Q 10 Vitamin D3 1005676 UNIT/GM Liquid as directed Medication List reviewed [...] Taking Co Q 10 Taking Vitamin D3 8488505 UNIT/GM Liquid as directed Medication List reviewed [...] - M20.42 3 . A therosclerosis of [place] arteries of extremities with intermittent claudication, bilateral [...] anti-inflammatories, and orthotics. 3. A therosclerosis of [place] arteries of extremities with intermittent claudication, bilateral [...] SKIN LESIONS, 2 TO 4, Modifiers: Q8 43562 DEBRIDE NAIL, 6 OR MORE, Modifiers: 59 , Q8 * Preventive Medicine: Screenings: F all risk screening F all Risk Assessment: N o falls in the past year. * Follow Up: 2 Months,General Care Billing Information: * Procedure Codes: 32127 TRIM SKIN LESIONS, 2 TO 4. Modifiers: Q8 32329 DEBRIDE NAIL, 6 OR MORE. Modifiers: 59, Q8 * Electronic signature of KENYA FORBES DPM on 05/07/2025 at 02:59 PM RADIOACTIVITY TECHNICIAN Sign off status: Pending * Provider: Vic FORBES Date: 0 01/11/2025 Generated for Chris alfaro/Nae/Karen on: 1 02:59 PM RADIOACTIVITY TECHNICIAN
--- OUTSIDE RECORDS SUMMARY | 2025-03-15 08:10 | XMS_ITS ---
Author Organization [facility] Address [address] [place], [place] [id number] Care Team Providers Care Global Climate Change Researcher Name Role Phone OMAR GNOZALEZ Unavailable [phone] Nelson Munoz Unavailable Unavailable DEBBY FORBES Unavailable [phone] Allergies Allergen (clinical drug ingredient) Drug/Non Drug [...] Orally Once a day Active Vitamin D3 8561748 UNIT/GM Liquid as directed Active NovoLOG Active [...] 03/15/2025 Encounters Encounter Location Date Provider Diagnosis [address] [id number] 03/15/2025 DEBBY FORBES Tinea unguium B35.1 ; Pain in left toe(s) M79.675 ; Pain in right toe(s) M79.674 ; Atherosclerosis of wales arteries of extremities with intermittent claudication, bilateral legs I70.213 ; 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 03/15/2025 Pain in left toe(s) (ICD-10 - M79.675) 03/15/2025 Pain in right toe(s) (ICD-10 - M79.674) 03/15/2025 Atherosclerosis of wales arteries of extremities with intermittent claudication, bilateral [...] options and answered all questions about neuropathy. 03/15/2025 Other hammer toe(s) (acquired), left foot (ICD-10 - M20.42) Hammertoe Deformity: Discussed various treatments for hammer toes with the patient . Discussed conservative care consisting of padding, wider shoes, anti-inflammatori es, and orthotics. Plan Of Treatment Treatment Notes Assessment Notes Tinea unguium Aseptic debridement of elongated thickened nails x 10 using sterile nippers, nails were debrided in length and thickness by 30% utilizing a nail nipper without incident. Atherosclerosis of wales ar teries of extremities with intermittent claudication, [...] options and answered all questions about neuropathy. Other hammer toe(s) (acquired), left jocelyn t Hammertoe Deformity: Discussed various treatments for hammer toes with the patient . Discussed conservative care consisting of padding, wider shoes, anti-inflammatories, and orthotics. Next Appt Details Follow Up: 2 Months,General Care, Reason: Provider Name:DEBBY PADRON, 05/24/2025 02:40:00 PM, [address] [place] [address], [id number], History and Physical Notes * HPI (History [...] Notes * SHAYLA DRAKEOB:1955 (70 yo M)Acc No.[id number]:03/15/2025 Patient: DONALD ONOFER Provider: Vic FORBES :1955 A ge:70 Y S ex:Male Date:03/15/2025 Address:[address] [place] [address] Subjective: * Chief Complaints: * * General [...] Silver 50+Men Co Q 10 Vitamin D3 5569370 UNIT/GM Liquid as directed Medication List reviewed [...] Taking Co Q 10 Taking Vitamin D3 0113789 UNIT/GM Liquid as directed Medication List reviewed [...] inea unguium - B35.1 (Primary) 2 . P ain in left toe(s) - M79.675 3 . P ain in right toe(s) - M79.674 4 . A therosclerosis of wales arteries of extremities with intermittent claudication, bilateral legs - I70.213 5 . N on-pressure chronic ulcer of other part of left foot limited to breakdown of skin - L97.521 6 . A cquired keratosis [keratoderma] palmaris et plantaris - L85.1 7 . O ther hereditary and idiopathic neuropathies - G60.8 8 . O ther hammer toe(s) (acquired), left foot - M20.42 Plan: * Treatment: 2. A therosclerosis of wales arteries of extremities with intermittent claudication, bilateral legs Notes: Patient educated on risks and aggravating factors of PVD, including conservative treatment options such as a diet and exercise regimen to aid in slowing progression of vascular disease. Check and protect LE bilateral daily. Call if any changes or concerns. 3. N on-pressure chronic ulcer of other part of left foot limited to breakdown of skin Notes: Ulcer Resolved: The hyperkeratotic tissue from the ulcer site was debrided down to normal appearing tissue. Advised patient to monitor this area for recurrence. Patient may discontinue local wound care. 4. A cquired keratosis [keratoderma] palmaris et plantaris Notes: A total of 3 corns or calluses, as described in the note above, were cut and pared utilizing a #15 blade 5. O ther hereditary and idiopathic neuropathies Notes: D iscussed conservative care consisting of padding, wider shoes, anti-inflammatories, and orthotics. Discussed medical options and answered all questions about neuropathy. 6. O ther hammer toe(s) (acquired), left foot Notes: Hammertoe Deformity: Discussed various treatments for hammer toes with the patient . Discussed conservative care consisting of padding, wider shoes, anti-inflammatories, and orthotics. * Procedure Codes: 1 1056 TRIM SKIN LESIONS, 2 TO 4, Modifiers: Q8 80213 DEBRIDE NAIL, 6 OR MORE, Modifiers: 59 , Q8 * Follow Up: 2 Months,General Care Billing Information: * Procedure Codes: 90449 TRIM SKIN LESIONS, 2 TO 4. Modifiers: Q8 06100 DEBRIDE NAIL, 6 OR MORE. Modifiers: 59, Q8 * Electronic signature of KENYA FORBES DPM on 05/07/2025 at 02:58 PM ENGINE COWLING INSTALLER Sign off status: Pending * Provider: Vic FORBES Date: 05/15/2024 Generated for Chris alfaro/Nae/Karen on: 02:58 PM ENGINE COWLING INSTALLER
--- NOTE | ~2025-05-07 | CT_ITS ---
EXAMINATION: CT diagnostic chest wo con DATE: 05/07/2025 15:19 INDICATION: Cough. Chest pain. TECHNIQUE: Computed tomography (CT) of the chest was performed without intravenous contrast. The dose-length product was 278.16 mGy-cm. Automated exposure control and iterative reconstruction technique were employed. COMPARISON: CT dated 03/22/2025 FINDINGS: The liver, spleen, pancreas, adrenal glands and visualized aspects of the kidneys are unremarkable. There is atherosclerosis of the aorta and coronary arteries. Mild mediastinal lymphadenopathy, likely reactive. Heart size normal. No significant pleural or pericardial effusion. There is emphysema. There are patchy groundglass opacities with areas of interlobular septal thickening and scattered miliary nodules. There is a 6 mm right lower lobe nodule with spiculated margins. There is a 3 mm right upper lobe nodule there is an 8 mm left upper lobe nodule. No endobronchial lesions. There is mild thoracic and lumbar spondylosis IMPRESSION: 1. Patchy round glass opacities with interlobular septal thickening, a nonspecific pattern that may be seen with infectious etiologies, inflammatory pneumonitis, pulmonary edema or lymphangitic processes. 2: Scattered miliary pulmonary nodules raising concern for infection, inflammatory process or neoplasm. 3: Multiple pulmonary nodules, largest in the left upper lobe measuring 8 mm which are indeterminate. 4: Mild emphysema. 5: Short-term follow-up CT chest in 3 months recommended. Consider pulmonary consultation. Reviewed, dictated and finalized at location [facility] IMPRESSION: 1. Patchy round glass opacities with interlobular septal thickening, a nonspeci fic pattern that may be seen with infectious etiologies, inflammatory pneumonit is, pulmonary edema or lymphangitic processes. 2: Scattered miliary pulmonary nodules raising concern for infection, inflamma tory process or neoplasm. 3: Multiple pulmonary nodules, largest in the left upper lobe measuring 8 mm w hich are indeterminate. 4: Mild emphysema. 5: Short-term follow-up CT chest in 3 months recommended. Consider pulmonary c onsultation.
--- OUTSIDE RECORDS SUMMARY | 2025-05-07 14:58 | XMS_ITS | Encounter Summary ---
Author Organization [facility] Location of [facility] Address [address] [place] [address] Phone Care Team Providers Care Double Backer Name Role Phone Nelson Munoz MD Primary Care Provider [phone] Encounter Details Date Type Department Care Team (Late st Contact Info) Description 05/26/2019 Orders Only [facility] Scanning, Provider Social History Tobacco Use Types Packs/Day Years Used Date Smoking Tobacco: Every Day Cigarettes Smokeless Tobacco: Never Sex and Gender Information Value Date Recorded Sex Assigned at Not on file Legal Sex Male 12: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
--- OUTSIDE RECORDS SUMMARY | 2025-05-07 14:58 | XMS_ITS | Encounter Summary ---
Author Organization [facility] Address [address] [place] [address] Phone Care Team Providers Care Space Systems Operations Superintendent Name Role Phone Nelson Munoz MD Primary Care Provider [phone] Encounter Details Date Type Department Care Team (Late st Contact Info) Description 09/12/2019 Orders Only [facility] Scanning, Provider Social History Tobacco Use Types Packs/Day Years Used Date Smoking Tobacco: Every Day Cigarettes Smokeless Tobacco: Never Sex and Gender Information Value Date Recorded Sex Assigned at Not on file Legal 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
--- OUTSIDE RECORDS SUMMARY | 2025-05-07 14:59 | XMS_ITS ---
Author Organization [facility] Address [address] [place] [address] Care Team Providers Care Vp Biology Name Role Phone Nelson Munoz MD Primary Care Provider Active Problems Patient Care Coordination No te [...]
--- OUTSIDE RECORDS SUMMARY | 2025-05-07 14:59 | XMS_ITS | Encounter Summary ---
Author Organization [facility] [employer] [facility] Address [address] [place] [address] Phone Care Team Providers Care Surgical Oncologist Name Role Phone Nelson Munoz MD Primary Care Provider [phone] Encounter Details Date Type Department Care Team (Latest Contact Info) Description 12/07/2024 Orders Only [facility] Scanning, Provider Social History Tobacco Use Types Packs/Day Years Used Date Smoking Tobacco: Former Cigarettes Passive Smoke Exposure: Past Smokeless Tobacco: Never Sex and Gender Information Value Date Recorded Sex Assigned at Not on file Legal Sex Male 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
--- OUTSIDE RECORDS SUMMARY | 2025-05-07 14:59 | XMS_ITS | Clinical Summary ---
Author Organization [facility] Address [address] [place] [address] Care Team Providers Care Bead Cutter Name Role Phone Nelson Munoz MD Primary Care Provider [phone] Allergies Active Allergy Reactions Criticality Noted Date [...] mg total) by mouth daily 4 Active ma-lio-upsbs-K 4-mlmqwsg-mlcn in [phone] mcg tablet Centrum Silver 50+Men Active Active [...] Department Care Team Description 04/12/2025 2:00 PM HOT METAL 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 HELPER Lab 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) (Primary Dx) 04/11/2025 Orders Only [facility] Hematology [address] [place] [phone] Vito De León MD 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) (Primary Dx) 04/10/2025 Telephone [facility] Hematology [address] [place] [phone] Leti Tafoya, RN 03/30/2025 Orders Only [facility] Scanning, Provider 03/30/2025 Telephone [facility] Hematology [address] [place] [phone] Leti Tafoya RN 03/22/2025 Orders Only [...] Cuff Repair - (Added by TW Conv) IA NJX AA&/STRD TFRML EPI CERVICAL/THORACIC 1 LEVEL Corticosteroid Inj Transforaminal Approach Cervical W/ Fluoroscopic Guidance - (Added by TW Conv) IA INJ CERV/THORAC,W/WO CNTRST Corticosteroid Injection Interlaminar Approach Cervical - (Added by TW Conv) IA INJ CERV/THORAC,W/WO CNTRST Corticosteroid Injection Interlaminar Approach Cervical - (Added by TW Conv) IA INJ CERV/THORAC,W/WO CNTRST Corticosteroid Injection Interlaminar Approach Cervical - (Added by TW Conv) IA INJ CERV/THORAC,W/WO CNTRST Corticosteroid Injection Interlaminar Approach Cervical - (Added by TW Conv) IA INJ CERV/THORAC,W/WO CNTRST Corticosteroid Injection Interlaminar Approach [...] on file Legal Sex Male 12:17 AM HOT METAL 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 HELPER Gender Identity Male 01/06/2023 12:03 PM CDT [...] Diagnosis Comments EGFR Routine 04/12/2025 2:53 PM HOT METAL 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 HELPER 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) DIFFERENTIAL AUTO Routine 04/12/2025 2:5 3 PM HOT METAL 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 HELPER 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) CBC WITH AUTO DIFFERENTIAL Routine 04/12/2025 2:53 PM HOT METAL 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 HELPER 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) COMPREHENSIVE METABOLIC PANEL Routine 04/12/2025 2:53 PM HOT METAL 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 HELPER 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 73 m2 Comment: [...] last reviewed 2021. Blood 04/12/2025 2:53 PM HOT METAL 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 HELPER 04/12/2025 3:03 PM HOT METAL 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 HELPER us Vito De León MD LAB BLOOD ORDERABLES Final R esult JIM SALINAS [facility] Department [place] [address] * Differential, auto (04/12/2025 2:53 PM HOT METAL 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 HELPER) [facility] Neutrophil abs 4.13 1.50 - 6.50 K/cumm Comment:Testing performed by : [facility], [address] [place] [phone] Lymphocyte abs 1.82 0.80 - 3.30 K/cumm JIM SALINAS Comment:Testing performed by : [facility], [address] [place] [phone] Monocyte abs 0.40 0.20 - 0.80 K/cumm JIM SALINAS Comment:Testing performed by : [facility], [address] [place] [phone] Eosinophil abs 0.17 0.00 - 0.50 K/cumm [facility] Comment:Testing performed by : [facility], [address] [place] [phone] Basophil abs 0.03 0.00 - 0.10 K/cumm [facility] Comment:Testing performed by : [facility], [address] [place], [place] [phone] Neutrophil pct 63.0 % [facility] Comment: Interpretive Data Percent cell count reference ranges are not reported, since discordance with absolute values may lead to misinterpretation of CBC data. Current Interpretive Data was last revised on 2017. Testing performed by: [facility], [address] [place] [address] Lymphocyte pct 27.9 % [facility] Comment: Interpretive Data Percent cell count reference ranges are not reported, since discordance with absolute values may lead to misinterpretation of CBC data. Current Interpretive Data was last revised on 2017. Testing performed by: [facility], [address] [place] [address] Monocyte pct 6.1 % [facility] Comment: Interpretive Data Percent cell count reference ranges are not reported, since discordance with absolute values may lead to misinterpretation of CBC data. Current Interpretive Data was last revised on 2017. Testing performed by: [facility], [address] [place] [address] Eosinophil pct 2.6 % [facility] Comment: Interpretive Data Percent cell count reference ranges are not reported, since discordance with absolute values may lead to misinterpretation of CBC data. Current Interpretive Data was last revised on 2017. Testing performed by: [facility], [address] [place] [phone] Basophil pct 0.5 % [facility] Comment: Interpretive Data Percent cell count reference ranges are not reported, since discordance with absolute values may lead to misinterpretation of CBC data. Current Interpretive Data was last revised on 2017. Testing performed by: [facility], [address] [place] [address] Blood 04/12/2025 2:53 PM HOT METAL 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 HELPER 04/12/2025 3:01 PM HOT METAL 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 HELPER us Vito De León MD LAB BLOOD ORDERABLES Final R esult JIM SALINAS [facility] Department [place] [address] * (ABNORMAL) CBC with auto differential (04/12/2025 2:53 PM HOT METAL 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 HELPER) WBC 6.55 3.80 - 9.90 K/cumm Comment:Testing performed by : [facility], [address] [place] [address] Hgb 14.3 13.0 - 17.5 g/dL JIM SALINAS Comment:Testing performed by : [facility], [address] [place] [address] Hct 42.1 38.9 - 50.3 % JIM SALINAS Comment:Testing performed by : [facility], [address] [place] [address] Plt 165 150 - 400 K/cumm JIM SALINAS Comment:Testing performed by : [facility], [address] [place] [address] MPV 7.4 6.8 - 10.4 fL JIM SALINAS Comment:Testing performed by : [facility], [address] [place] [address] RBC 4.34 4.30 - 5.80 M/cumm JIM SALINAS Comment:Testing performed by : [facility], [address] [place] [address] MCV 97.0(H) 81.3 - 96.4 fL JIM SALINAS Comment:Testing performed by : [facility], [address] [place] [address] MCH 33.0 27.1 - 33.3 pg CERKITA SALINAS Comment:Testing performed by : [facility], [address] [place] [address] MCHC 34.0 32.3 - 35.7 g/dL [facility] Comment:Testing performed by : [facility], [address] [place] [phone] RDW CV 14.1 11.1 - 14.9 % [facility] Comment:Testing performed by : [facility], [address] [place] [phone] NRBC abs 0.00 0.00 - 0.01 K/cumm [facility] Comment:Testing performed by : [facility], [address] [place] [phone] Blood 04/12/2025 2:53 PM HOT METAL 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 HELPER 04/12/2025 3:01 PM HOT METAL 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 HELPER Vito De León MD LAB BLOOD ORDERABLES Final R esult Performing Organization Address [facility] de Phone Number [facility] Department [place] [address] * PN profile (04/12/2025 2:53 PM HOT METAL 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 HELPER) [facility] RBC-CD59 Test Completed [facility] WBC-CD59 Test Completed [facility] FLAER Test Completed [facility] Interpretation See separate Surgical Pathology report. [facility] Blood 04/12/2025 2:53 PM HOT METAL 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 HELPER 04/12/2025 5:42 PM HOT METAL 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 HELPER Narrative [facility] - 04/13/2025 9:23 AM HOT METAL 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 HELPER This test was developed and its performance characteristics determined by the [facility] Flow Cytometry Laboratory. It has not been [...] MD LAB BLOOD ORDERABLES Final R esult [facility] Department [place] [address] * Lactate dehydrogenase (LD) (04/12/2025 2:53 PM HOT METAL 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 HELPER) Lactate dehydrogenase (LDH) 156 100 - 250 Units/L Blood 04/12/2025 2:53 PM HOT METAL 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 HELPER 04/12/2025 3:03 PM HOT METAL 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 HELPER Vito De León MD LAB BLOOD ORDERABLES Final R esult Performing Organization Address [facility] Co de Phone Number [facility] [place] [address] * Comprehensive metabolic panel (04/12/2025 2:53 PM HOT METAL 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 HELPER) Pathologist [facility] Sodium 142 135 - 145 mmol/L Potassium, pl 4.3 3.3 - 4.9 mmol/L [facility] Chloride 108 97 - 110 mmol/L [facility] CO2 28 22 - 32 mmol/L [facility] Anion gap 6 2 - 15 mmol/L [facility] BUN 13 6 - 25 mg/dL [facility] Creatinine 0.88 0.80 - 1.30 mg/dL [facility] Glucose 135 70 - 199 mg/dL [facility] Comment: Interpretive Data Fasting glucose >/= [...] 2022. Calcium 9.4 8.5 - 10.3 mg/dL [facility] Bilirubin, total 0.6 0.1 - 1.2 mg/dL [facility] Protein, pl 6.9 6.5 - 8.5 g/dL [facility] Albumin 4.3 3.5 - 5.0 g/dL [facility] Alk phos 64 40 - 130 Units/L [facility] ALT 22 7 - 55 Units/[facility] AST 23 10 - 50 Units/L [facility] Blood 04/12/2025 2:53 PM HOT METAL 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 HELPER 04/12/2025 3:03 PM HOT METAL 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 HELPER us Vito De León MD LAB BLOOD ORDERABLES Final R esult [facility] Department [place] [address] * Surgical pathology (04/12/2025 12:04 PM HOT METAL 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 HELPER) Blood 04/12/2025 12:0 4 PM HOT METAL 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 HELPER 04/12/2025 5:43 PM HOT METAL 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 HELPER Narrative 04/13/2025 2:30 PM HOT METAL 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 HELPER EPIC results best viewed via link to PDF [facility] [place] [address] Note to Patients: This report may contain [...] details. SURGICAL PATHOLOGY REPORT FINAL Patient Name: DONALD DRAKE Gender: M : 1955 (Age: 70) Address: [address] [place] [phone] Hospital #: [id number] Taken:04/12/2025 Received:04/12/2025 Reported: 04/13/2025 Patient Type: [facility] MED ONC Service: Laboratory Location: Physician(s): Vito De León M.D. Diagnosis: Peripheral blood, flow cytometry - No immunophenotypic evidence of paroxysmal nocturnal hemoglobinuria [facility]/04/13/2025 14:30 By this signature, I attest [...] antibodies to the following cellular antigens: CD45, GY039t, CD15, CD59, FLAER. Total antigens analyzed: 5 Monie Ceja M.D. 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 It has not been cleared or approved [...] Result from Last 3 Months Insurance MEDICARE [facility] INSURANCE [employer] SENIOR SUPPLEMENT MEDICARE [facility] INSURANCE MEDICARE Care Teams Bead Cutter Relationship Specialty Start Date End Date Nelson Munoz MD [address] [place] [address] PCP - General 07/21/16
--- OUTSIDE RECORDS SUMMARY | 2025-05-07 14:59 | XMS_ITS ---
Author Organization [facility] Address [address] [place] [address] Care Team Providers Care Ui Developer With Angular Js Name Role Phone Nelson Munoz MD Primary Care Provider [phone] Ximena MENDES MD, Osorio Unavailable [phone] Active Problems Problem Noted Date Diagnosed [...]
--- OUTSIDE RECORDS SUMMARY | 2025-05-07 14:59 | XMS_ITS | Clinical Summary ---
Author Organization [facility] Address [address] [place] [address] Care Team Providers Care Revenue Collector Name Role Phone Unavailable Primary Care Provider [...] Comments Blood Pressure 114/76 06/20/2014 4:09 PM PROOF PLATE MAKER Pulse 90 06/20/2014 4:08 PM PROOF PLATE MAKER Temperature - - Respiratory Rate 16 06/20/2014 4:08 PM PROOF PLATE MAKER Oxygen Saturation - - Inhaled Oxygen Concentration - - Weight 117.9 kg (260 lb) 06/20/2014 4:08 PM PROOF PLATE MAKER Height 182.9 cm (6') 06/20/2014 4:08 PM PROOF PLATE MAKER Body Mass Index 35.26 06/20/2014 4:08 PM PROOF PLATE MAKER Plan of Treatment Health Maintenance Due Date [...] patient's age to complete this topic Insurance [facility]
--- OUTSIDE RECORDS SUMMARY | 2025-05-07 14:59 | XMS_ITS | Clinical Summary ---
Author Organization [facility] Address [address] [place] [address] Care Team Providers Care Life Support Technician Name Role Phone Nelson Munoz MD Primary Care Provider [phone] Ximena MENDES MD, Osorio Unavailable Source Comments [facility],non-owned Affiliates and Associated Physician Practices is amultiple site organization consisting of ambulatory clinics and hospital sitesin [place], [place], [place] and [place]. This disclosure is being madepursuant to the Care Everywhere program and may not contain all information available regarding this patient. Last updated 18.[facility] Allergies Active Allergy Reactions Criticality Noted Date [...] MEDICARE MEDICARE SUPPLEMENT [employer] Care Teams Life Support Technician Relationship Specialty Start Date End Date Nelson Munoz MD [address] [place] [id number] PCP - General Internal Medicine 10/18/[address] [place] [address] [address] Orthopedic Surgery 11/26/20
--- OUTSIDE RECORDS SUMMARY | 2025-05-07 14:59 | XMS_ITS | Patient Health Record ---
Author Organization [facility] Address [address] [place], [place] [id number] Care Team Providers Care Allied Health Professional Name Role Phone OMAR GONZALEZ Unavailable [phone] Nelson Munoz Unavailable Unavailable DEBBY FORBES Unavailable [phone] Allergies Allergen (clinical drug ingredient) Drug/Non Drug [...] Gabapentin Active Folic Acid Active Vitamin D3 2158051 UNIT/GM Liquid as directed Active Lovastatin Active [...] 03/15/2025 Encounters Encounter Location Date Provider Diagnosis [address] [id number] 10/12/2024 DEBBY FORBES Acquired keratosis [keratoderma] palmaris et plantaris L85.1 ; 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 ; Other hammer toe(s) (acquired), left foot M20.42 ; Atherosclerosis of redding arteries of extremities with intermittent claudication, bilateral legs I70.213 and Other hereditary and idiopathic neuropathies G60.[address] [id number] 11/09/2024 DEBBY FORBES Acquired keratosis [keratoderma] palmaris et plantaris L85.1 ; 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 ; Other hammer toe(s) (acquired), left foot M20.42 ; Atherosclerosis of redding arteries of extremities with intermittent claudication, bilateral legs I70.213 ; Other hereditary and idiopathic neuropathies G60.8 and Tinea unguium B35.[address] [id number] 01/11/2025 DEBBY LEIDY Other hammer toe(s) (acquired), left foot M20.42 ; Tinea unguium B35.1 ; Atherosclerosis of redding arteries of extremities with intermittent claudication, bilateral legs I70.213 ; 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 ; Acquired keratosis [keratoderma] palmaris et plantaris L85.1 and Other hereditary and idiopathic neuropathies G60.[address] [id number] 03/15/2025 DEBBY BORDENFORD Tinea unguium B35.1 ; Pain in left toe(s) M79.675 ; Pain in right toe(s) M79.674 ; Atherosclerosis of redding arteries of extremities with intermittent claudication, bilateral legs I70.213 ; 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 ; Acquired keratosis [keratoderma] palmaris et plantaris L85.1 ; Other hereditary and idiopathic neuropathies G60.8 and Other hammer toe(s) (acquired), left foot M20.[address] [id number] 07/27/2024 OMAR GONZALEZ Tinea unguium B35.1 ; Acquired keratosis [keratoderma] palmaris et plantaris L85.1 ; Atherosclerosis of redding arteries of extremities with intermittent claudication, bilateral legs I70.213 ; Pain in right foot M79.671 ; Pain in left foot M79.672 ; 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 07/27/2024 Atherosclerosis of redding arteries of extremities with intermittent claudication, bilateral legs (ICD-10 - I70.213) 07/27/2024 Pain in right foot (ICD-10 - M79.671) 10/12/2024 Atherosclerosis of redding arteries of extremities with intermittent claudication, bilateral legs (ICD-10 - I70.213) Check and protect LE bilateral daily. Call if any changes or concerns. 11/09/2024 Atherosclerosis of redding arteries of extremities with intermittent claudication, bilateral [...] Patient may discontinue local wound care. 03/15/2025 Atherosclerosis of redding arteries of extremities with intermittent claudication, bilateral [...] and answered all questions about neuropathy. 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 03/15/2025 Other hammer toe(s) (acquired), left foot (ICD-10 - M20.42) Hammertoe Deformity: Discussed various treatments for hammer toes with the patient . Discussed conservative care consisting of padding, wider shoes, anti-inflammatori es, and orthotics. Plan Of Treatment Next Appt Details Provider Name:DEBBY PADRON, 05/24/2025 02:40:00 PM, [address] [place] [address], [id number], Insurance Providers Payer Name Payer Address Payer Phone Subscriber Number Group Number Insured Name Patient Relationship to Insured Coverage Start Date Coverage End Date Medicare Part B [place] [address] [place] [phone] [id number] DONALD DRAKE Self - patient is the insured [facility] [address] [place] [address] [id number] DONALD DRAKE Self - patient is the insured Medical (General) History Medical History History ICD Code acid reflux neuropathy Pneumonia anemia Asthma/Bronchitis Cancer Open Sores Respiratory disease Arthritis Bladder infections rheumatoid arthritis Sleep apnea Back Trouble Diabetic heart/disease/failure high blood pressure Lung Disease
--- OUTSIDE RECORDS SUMMARY | 2025-05-07 14:59 | XMS_ITS | Encounter Summary ---
Author Organization [facility] [employer] 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
--- OUTSIDE RECORDS SUMMARY | 2025-05-07 14:59 | XMS_ITS | Encounter Summary ---
Author Organization [facility] [employer] [facility] Address [address] [place] [address] Phone Care Team Providers Care Rubble Placer Name Role Phone Nelson Munoz MD Primary Care Provider [phone] Encounter Details Date Type Department Care Team (Latest Contact Info) Description 03/22/2025 Orders Only [facility] Scanning, Provider Social History Tobacco Use Types Packs/Day Years Used Date Smoking Tobacco: Former Cigarettes Passive Smoke Exposure: Past Smokeless Tobacco: Never Sex and Gender Information Value Date Recorded Sex Assigned at Not on file 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
[2025-05-07 15:09] LABS: Hematocrit 41.0 % (37.0-46.0); Hemoglobin 13.9 g/dL (12.4-15.3); Mean Corpuscular HGB Conc 33.9 g/dL (32-36); Mean Corpuscular Hemoglobin 33.4 pg (27.0-31.0); Mean Corpuscular Volume 98.6 fL (78.0-102.0); Platelet Count Result 153 K/mm3 (150-420); Red Blood Count 4.16 M/mm3 (4.70-6.10); White Blood Count 13.3 K/mm3 (4.8-10.8)
[2025-05-07 15:38] LABS: Strep Group A RT-PCR NOT DETECTED (Negative)
[2025-05-07 15:54] LABS: Alanine Aminotransferase 17 U/L (6-50); Albumin Level 4.6 g/dL (3.5-5.1); Alkaline Phosphatase 65 U/L (38-126); Anion Gap 10 mmol/L (4-12); Aspartate Amino Transferase 23 U/L (17-59); Bilirubin,Total 0.8 mg/dL (0.2-1.3); Blood Urea Nitrogen 12 mg/dL (9-20); Calcium 9.2 mg/dL (8.4-10.2); Carbon Dioxide 24 mmol/L (22-30); Chloride 112 mmol/L (98-107); Estimated Glomerular Filt Rate > 60; Glucose 110 mg/dL (65-110); Osmolality Calculated 302 mOsm/kg (285-295); Potassium 4.0 mmol/L (3.4-5.0); Sodium 146 mmol/L (137-145); Total Protein 7.0 g/dL (6.3-8.2)
[2025-05-07 16:28] LABS: Influenza A QL RT-PCR Negative (Negative); Influenza B QL RT-PCR Negative (Negative); RSV RNA, RT-PCR Negative (Negative); SARS-CoV-2 RNA PCR Negative (Negative)
== END 2025-05-07 14:43 | disposition home or self-care (01) ==
PROVIDERS: Nurse Practitioner Family; PCP Internal Medicine; Visit Provider Internal Medicine
DX: R05.9 Cough, unspecified (principal); R07.9 Chest pain, unspecified; I10 Essential (primary) hypertension; R91.8 Other nonspecific abnormal finding of lung field; J43.9 Emphysema, unspecified
CPT/HCPCS: 36415; 71250; 80053; 85027; 87637; 87651